=== PATIENT | male | born 1955 | race Caucasian/White ===

== ENCOUNTER 2017-05-24 15:50 | Observation (INO) ==
--- NOTE | 2017-05-24 16:04 | Emergency Department Note ---
Disposition Clinical Impression: Dysarthria Disposition: Admitted As Inpatient Condition: Good Time of Disposition: 18:06 General Adult HPI - General Chief complaint: ED Altered Mental Status Stated complaint: Stroke like symptoms Time Seen by Provider: 05/24/17 15:51 Source: patient, family Mode of arrival: wheelchair Nursing Notes Reviewed: Yes Vital Signs Reviewed: Yes - History of Present Illness HPI Narrative: 61-year-old male presenting to the emergency department chief complain of right hemiparalysis starting at 3:00 this afternoon. Patient's friend is in the room and states the symptoms started at 3 and the patient could not find the words he wanted to say and was unable to walk due to right-sided weakness. Patient has no significant cardiac or stroke history. Patient is on aspirin daily but no other anticoagulation. Patient states he has no significant past medical history. On exam patient has difficulty finding words to respond to questions. His NIH score is 3 at this time. Patient is tachycardic in the room. Patient states he felt fine this morning, denies chest pain, SOB, or other symptoms are this time. Pain Scale: 0 - Related Data Home Medications Medication Instructions Recorded Confirmed Amlodipine Besylate 10 mg PO DAILY 05/24/17 05/24/17 Aspirin 81 mg PO DAILY 05/24/17 05/24/17 Lisinopril [Zestril] 40 mg PO DAILY 05/24/17 05/24/17 Lovastatin 10 mg PO DAILY 05/24/17 05/24/17 Metoprolol [Lopressor] 50 mg PO BID 05/24/17 05/24/17 Triamterene/HCTZ 37.5/25mg 1 each PO DAILY 05/24/17 05/24/17 [Dyazide] Allergies Allergy/AdvReac Type Severity Reaction Status Date / Time No Known Allergies Allergy Verified 05/24/17 16:00 All systems ED: reviewed and negative except as stated. Constitutional: Reports: weakness. Denies: fever, chills Eyes: Reports: as per HPI ENT ED: Reports: as per HPI Cardiovascular: Denies: chest pain, palpitations, dyspnea on exertion Respiratory: Denies: cough, dyspnea, wheezes Gastrointestinal: Reports: as per HPI Genitourinary: Reports: as per HPI Musculoskeletal: Reports: as per HPI Integumentary: Reports: as per HPI Neurological: Reports: weakness, abnormal gait Psychiatric: Reports: as per HPI Endocrine: Reports: as per HPI Hematological/Lymphatic: Reports: as per HPI Allergic/Immunologic: Reports: as per HPI Past Medical History - Past Medical History Attestation: Yes The following information was validated with the patient. Medical history: Reports: hypertension Psychiatric history: Reports: no psych history - Social History Smoking Status: Current every day smoker Alcohol use: Reports: none Drug use: Reports: none Physical Exam - General Limitations: physical limitation General appearance: alert - Head Head exam: atraumatic, normocephalic, normal inspection - Eye Eye exam: Present: normal appearance, EOMI. Absent: scleral icterus, conjunctival injection - Chest Chest inspection: Present: normal inspection, symmetric chest wall rise. Absent : tenderness - Respiratory Respiratory exam: Present: normal lung sounds bilaterally. Absent: respiratory distress, wheezes - Cardiovascular Cardiovascular exam: Present: normal rhythm, tachycardia, normal heart sounds - Abdominal Exam Abdominal exam: Present: soft, Non-Tender. Absent: distention, guarding, rebound - Extremities Exam Extremities exam: Present: other (Right upper and lower extremity weakness.) - Neurological Exam Neurological exam: Present: alert, oriented X3, other (Dysarthria noted on exam. Patient's NIH score is 3. Mild right upper extremity weakness and right lower extremity weakness. Sensation intact. Cranial nerve exam within normal limits. Patient unable to walk due to weakness. Cerebellar exam within normal limits.) - Psychiatric Psychiatric exam: Present: normal affect, normal mood - Skin Skin exam: Present: warm, intact Course Course Narrative: 61-year-old male presented to the emergency chief complaint of right hemiparalysis and dysarthria. Stroke alert was called on this patient. NIH score of 3 at this time. EKG completed was within normal limits. Patient tachycardic in the room and hypertensive. Patient was evaluated by [facility] neurology who declined to begin TPA. We will plan to admit the patient at this time. Patient states right arm hemiparalysis history to pain. When patient's arm is abductor past 90 degrees he is able to hold it up for greater than 10 seconds. Right lower extremity hemiparalysis is now resolved. Patient still having dysarthria at this time. Spoke with the hospitalist Dr. Simpson who agrees to accept the patient at this time. 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 I spoke with radiology Dr. Pearson who states we will need to obtain MRI of the brain with and without contrast. Dr. Ricketts who would also like us to obtain an MRA of the brain and neck without contrast for further stroke workup. We will order these in the emergency department and defer the results to the hospitalist team. Patient's alert and oriented 3 in the room. He is having minimal dysarthria at this time and his vital signs are now stable. Vital Signs Temperature 98.4 F 05/24/17 15:54 Pulse Rate 117 05/24/17 15:54 Respiratory Rate 16 05/24/17 15:54 Blood Pressure 181/90 05/24/17 15:54 O2 Sat by Pulse Oximetry 93 05/24/17 15:54 Temperature 98.4 F 05/24/17 15:54 Pulse Rate 109 05/24/17 19:30 Respiratory Rate 22 05/24/17 19:30 Blood Pressure 132/81 05/24/17 19:30 O2 Sat by Pulse Oximetry 93 05/24/17 19:30 Oxygen Delivery Oxygen Delivery Nasal Cannula Medical Decision Making - Medical Records Medical records reviewed: Yes I reviewed the patient's medical records. - Lab Data Lab results reviewed: Yes I reviewed the patient's lab results. Result diagrams: 05/24/17 15:59 05/24/17 15:59 Lab Results 05/24/17 05/24/17 05/24/17 Range/Units 15:55 15:59 15:59 WBC 9.8 (4.3-11.1) K/mcL RBC 5.22 (4.19-5.50) M/mcL Hgb 16.5 (12.9-16.9) g/dL Hct 46.5 (37.5-50.1) % MCV 89.1 (83.0-100.0) fL MCH 31.6 (28.0-33.3) pg MCHC 35.5 (31.6-35.5) g/dL RDW 13.4 (11.5-14.5) % Plt Count 455 H (140-400) K/mcL MPV 8.5 L (9.4-12.4) fL Immature Gran % 0.5 (0-4) % Seg Neutrophils % 56.8 % Lymphocytes % 28.5 % Monocytes % 9.8 % Eosinophils % 3.0 % Basophils % 1.4 % Neutrophils # 5.6 (1.6-8.9) K/mcL Lymphocytes # 2.8 (0.6-4.6) K/mcL Monocytes # 1.0 (0.0-1.3) K/mcL Eosinophils # 0.3 (0.0-0.6) K/mcL Basophils # 0.1 (0.0-0.2) K/mcL Immature Plt Fraction 2.1 (1.1-6.1) % PT 9.4 (9.4-12.1) Seconds INR 0.9 APTT 32.0 (26.0-36.0) Seconds Sodium (136-145) mEq/L Potassium (3.5-4.5) mEq/L Chloride (98-109) mEq/L Carbon Dioxide (19-29) mEq/L BUN (8-26) mg/dL Creatinine (0.72-1.25) mg/dL Est GFR ( Amer) (> 60) Est GFR (Non-Af Amer) (> 60) BUN/Creatinine Ratio (6-26) Glucose (70-99) mg/dL POC Glucose 150 H (58-89) Calculated Osmolality (280-300) Calcium (8.6-10.8) mg/dL Troponin I (0-0.03) ng/mL 05/24/17 05/24/17 Range/Units 15:59 15:59 WBC (4.3-11.1) K/mcL RBC (4.19-5.50) M/mcL Hgb (12.9-16.9) g/dL Hct (37.5-50.1) % MCV (83.0-100.0) fL MCH (28.0-33.3) pg MCHC (31.6-35.5) g/dL RDW (11.5-14.5) % Plt Count (140-400) K/mcL MPV (9.4-12.4) fL Immature Gran % (0-4) % Seg Neutrophils % % Lymphocytes % % Monocytes % % Eosinophils % % Basophils % % Neutrophils # (1.6-8.9) K/mcL Lymphocytes # (0.6-4.6) K/mcL Monocytes # (0.0-1.3) K/mcL Eosinophils # (0.0-0.6) K/mcL Basophils # (0.0-0.2) K/mcL Immature Plt Fraction (1.1-6.1) % PT (9.4-12.1) Seconds INR APTT (26.0-36.0) Seconds Sodium 132 L (136-145) mEq/L Potassium 3.7 (3.5-4.5) mEq/L Chloride 97 L (98-109) mEq/L Carbon Dioxide 22 (19-29) mEq/L BUN 14 (8-26) mg/dL Creatinine 1.00 (0.72-1.25) mg/dL Est GFR ( Amer) > 60 (> 60) Est GFR (Non-Af Amer) > 60 (> 60) BUN/Creatinine Ratio 14 (6-26) Glucose 148 H (70-99) mg/dL POC Glucose (58-89) Calculated Osmolality 277 L (280-300) Calcium 10.1 (8.6-10.8) mg/dL Troponin I 0.00 (0-0.03) ng/mL - Radiology Data Radiology results reviewed: Yes I reviewed the patient's radiology results. - EKG Data EKG #1 EKG attestation: Yes I reviewed and interpreted this EKG. EKG results narrative: Sinus tachycardia. 114 bpm. Normal axis. TX interval 141, QRS 94, QTC 379. No ST segment elevation or signs of ischemia noted. Attestation Statement - Attestation Attestation: I, Ayan Troncoso, examined this patient and my medical decision-making was reviewed with the [employer]/PA/Advanced Practice Nurse/Resident Physician. I agree with the documented findings, disposition and treatment plan as described except to the extent set forth below. 61-year-old male presents emergency department for acute onset of difficulty with his speech and weakness in his right upper and right lower extremity. Patient states symptoms started acutely at 3 PM. No history of CVA in the past per the patient. Patient states he fell to the ground immediately prior to arrival due to difficulty with ambulation. On my initial evaluation the patient has dysarthria and aphasia and weakness to the right upper and right lower extremity. No sensation loss. No facial weakness. Stroke alert was initiated immediately after our initial evaluation. Patient had blood sugar of 150. CT of the head did not show evidence of acute hemorrhage or fracture. 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 I spoke with the radiologist, Dr. Hinkle, who states she spoke with 2 separate neuro radiologist, one recommended continued workup with MRI, the other recommended neurosurgical evaluation if patient was symptomatic. Patient was quickly returning back to baseline by the time he spoke with [facility] and the neurologist recommended not giving TPA due to low NIH and also recommended that patient did not need neurosurgical evaluation for the colloid cyst as it was not likely the cause of his symptoms. Patient will be admitted to the hospital for further care and evaluation of his acute neurologic deficits.
[2017-05-24 16:11] LABS: Basophils # 0.1 K/mcL (0.0-0.2); Basophils % 1.4 %; Eosinophils # 0.3 K/mcL (0.0-0.6); Hematocrit 46.5 % (37.5-50.1); Hemoglobin 16.5 g/dL (12.9-16.9); Immature Granulocytes % 0.5 % (0-4); Immature Platelets 2.1 % (1.1-6.1); Lymphocytes # 2.8 K/mcL (0.6-4.6); Lymphocytes % 28.5 %; Mean Corpuscular HGB Conc 35.5 g/dL (31.6-35.5); Mean Corpuscular Hemoglobin 31.6 pg (28.0-33.3); Mean Corpuscular Volume 89.1 fL (83.0-100.0); Mean Platelet Volume 8.5 fL (9.4-12.4); Monocytes % 9.8 %; Neutrophils # 5.6 K/mcL (1.6-8.9); Platelet Count 455 K/mcL (140-400); Red Blood Count 5.22 M/mcL (4.19-5.50); Red Cell Distribution Width 13.4 % (11.5-14.5); Segmented Neutrophils % 56.8 %
[2017-05-24] MEDS ORDERED: ALTEPLASE IVPB ONE ×3 (16:18→16:30)
[2017-05-24 16:22] LABS: BUN/Creatinine Ratio 14 (6-26); Blood Urea Nitrogen 14 mg/dL (8-26); Calcium 10.1 mg/dL (8.6-10.8); Carbon Dioxide 22 mEq/L (19-29); Chloride 97 mEq/L (98-109); Glucose 148 mg/dL (70-99); INR 0.9; Osmolality,Calculated 277 (280-300); Potassium 3.7 mEq/L (3.5-4.5); Prothrombin Time 9.4 Seconds (9.4-12.1); Sodium 132 mEq/L (136-145); eGFR For African Americans > 60 (> 60); eGFR For Non-African Americans > 60 (> 60)
[2017-05-24] MEDS ORDERED: Aspirin 81 MG TAB.CHEW PO ONE (17:16)
[2017-05-24] MEDS ORDERED: 0.9 % Sodium Chloride 1,000 ML IVC SCH (20:30)
--- NOTE | 2017-05-25 04:34 | Discharge Summary ---
Date of Encounter: 05/25/17 Time of Encounter: 04:30 - Discharge Medications Home Medications: Amlodipine Besylate 10 mg PO DAILY 05/24/17 [History] Aspirin 81 mg PO DAILY 05/24/17 [History] Lisinopril [Zestril] 40 mg PO DAILY 05/24/17 [History] Lovastatin 10 mg PO DAILY 05/24/17 [History] Metoprolol [Lopressor] 50 mg PO BID 05/24/17 [History] Triamterene/HCTZ 37.5/25mg [Dyazide] 1 each PO DAILY 05/24/17 [History] Allergies/Adverse Reactions: 3 Allergy/AdvReac Type Severity Reaction Status Date / Time No Known Allergies Allergy Verified 05/24/17 16:00 Procedures/tests Complete & Pending: Procedures Performed prior 72 hours Category Date Time Status MR angio neck wo/w con [MR] Stat MRI 05/24/17 17:51 Completed Date of admission: 05/24/17 17:51 Primary care physician: Lili Gatica MD - Patient Status Disposition: Transfer Critical Access Hosp Condition: Serious Overall status at discharge: patient is not back to baseline - Discharge Instructions Follow Up With: Lili Gatica MD [Primary Care Provider] - Interval History: Patient is a 61-year-old male who had presented to the emergency room with onsets of right-sided weakness at 3 PM. Patient symptoms started improving in the emergency room and therefore he was evaluated by [facility] neurologist who decided against giving him algae plays because you were showing already signs of improvement. We were contacted by the nurses later approximately 7:30 PM that there has been a change in the patient neurological status. Patient exhibited aphasia after he was able to talk earlier, patient also had worsening weakness in the right upper extremity which is now 2 over 5. Discuss case again with [facility] neurologist recommended transferring the patient. 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 Patient has been maintaining his airway. Hospital course: Mr. Hicks is a 61 year old male - Time Spent with Patient Total time spent providing and/or coordinating discharge services: - Constitutional Vitals: Temp Pulse Resp BP Pulse Ox 97.6 F 114 20 123/89 98 05/24/17 19:50 05/24/17 22:42 05/24/17 22:42 05/24/17 22:42 05/24/17 22:42 Exam: Gen.: patient is alert oriented times 3 not in distress cardiac: Normal S1, S2, no additional sounds or murmurs chest: Clear to auscultation lower extremity Lax calf muscles no swelling Neuro: right arm weakness to over 5, right lower extremity weakness 3 over 5, aphasia
--- NOTE | 2017-05-25 04:42 | Internal Med History&Physical ---
Date of Encounter: 05/25/17 Time of Encounter: 04:38 Assessment and Plan (1) Acute CVA (cerebrovascular accident) Status: Acute Patient with acute left CVA causing right-sided weakness and aphasia. Patient symptoms fluctuating probably related to changes in blood pressure. Rapid response was called shortly after arrival to floor because of declining neurological status in the form of aphasia after patient was able to talk in addition to worsening paralysis of right upper extremity where he currently does not have any antigravity muscle. MRI of the brain shows left frontal infarct and MRA of the head and neck shows carotid occlusion bilaterally with collateral circulation. Case discussed with neurologist at the [facility] will recommended transferring the patient. Patient is not a candidate for CPA. On initial evaluation by neurologist because of improving neurological status and on the 2nd evaluation being out of window. Internal Medicine - H&P: HPI Chief complaint: right side weakness History of present illness: Mr. Hicks is a 61 year old male with a history of hypertension presents to the ER with the main complain of right-sided weakness. Approximately 3 PM patient Notices weakness of the right side of the body. It was also noted that he is having difficulty finding words. He had presented to the emergency room and Approximately an hour and a half later TPA was not recommended given improvement of his neurological status. Patient neurological status declined after arriving to the floor where he became aphasic and lost antigravity muscles in the right upper extremity. patient denies any chest pain. No sputum production fevers or chills. Past Med Surg Social Fam HX - Past Medical History Medical history: hypertension Psychiatric history: no psych history - Social History Smoking Status: Current every day smoker Alcohol use: none Drug use: none Internal Medicine - H&P: Meds Amlodipine Besylate 10 mg PO DAILY 05/24/17 [History] Aspirin 81 mg PO DAILY 05/24/17 [History] Lisinopril [Zestril] 40 mg PO DAILY 05/24/17 [History] Lovastatin 10 mg PO DAILY 05/24/17 [History] Metoprolol [Lopressor] 50 mg PO BID 05/24/17 [History] Triamterene/HCTZ 37.5/25mg [Dyazide] 1 each PO DAILY 05/24/17 [History] 3 Allergy/AdvReac Type Severity Reaction Status Date / Time No Known Allergies Allergy Verified 05/24/17 16:00 All Systems PM: A 10-system review of systems was performed and is negative for pertinent findings except as documented above in the HPI. Review of systems: 10 point review of systems is negative except for HPI - Constitutional Vitals: Temp Pulse Resp BP Pulse Ox 97.6 F 114 20 123/89 98 05/24/17 19:50 05/24/17 22:42 05/24/17 22:42 05/24/17 22:42 05/24/17 22:42 Exam: Gen.: patient is alert oriented times 3 not in distress cardiac: Normal S1, S2, no additional sounds or murmurs chest: Clear to auscultation lower extremity Lax calf muscles no swelling Neuro: right upper extremity weakness more power 1 over 5, right lower extremity weakness more power 3 over 5, aphasia Internal Med - H&P Results - Labs CBC & Chem 7: 05/24/17 15:59 05/24/17 15:59
--- NOTE | 2017-05-26 18:21 | Electrocardiograph Report ---
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
== END 2017-05-24 21:15 | disposition critical access hospital (66) ==
LOC: 3BNU 15:50 → EMEROO 15:50 → 3BNU 18:11
PROVIDERS: ADMIT Registered Nurse; ATTEND Registered Nurse

== ENCOUNTER 2017-10-07 20:37 | Inpatient (IN) ==
[2017-10-07] MEDS ORDERED: 0.9 % Sodium Chloride 1,000 ML IVC ONE (21:03)
--- NOTE | 2017-10-07 21:11 | Emergency Department Note ---
Disposition Clinical Impression: HCAP (healthcare-associated pneumonia), UTI (urinary tract infection), Fever Disposition: Admitted As Inpatient Condition: Good General Adult HPI - General Chief complaint: ED General Medical Stated complaint: Elevated Vitals Time Seen by Provider: 10/07/17 20:41 Source: EMS Limitations: no limitations Nursing Notes Reviewed: Yes Vital Signs Reviewed: Yes - History of Present Illness HPI Narrative: 61 y/o male with a hx of stroke affecting his speech and R side of his body. Lives at a fdc due to this. I spoke with the nurse at the fdc who reports that he was tachycardic, febrile, with low SPO2, and cough. He also has been pointing to his abdomen when asked if it hurts. The nurse says he does not use O2 at the fdc. PMH of stroke, HTN, HLD. He is nonverbal but does nod in response to questions. 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 Pain Scale: 0 Improves with: nothing Worsens with: nothing Associated symptoms: Reports: denies other symptoms Treatments Prior to Arrival: none - Related Data Home Medications Medication Instructions Recorded Confirmed Amlodipine Besylate 10 mg PO DAILY 05/24/17 05/24/17 Aspirin 81 mg PO DAILY 05/24/17 05/24/17 Lisinopril [Zestril] 40 mg PO DAILY 05/24/17 05/24/17 Lovastatin 10 mg PO DAILY 05/24/17 05/24/17 Metoprolol [Lopressor] 50 mg PO BID 05/24/17 05/24/17 Triamterene/HCTZ 37.5/25mg 1 each PO DAILY 05/24/17 05/24/17 [Dyazide] Allergies Allergy/AdvReac Type Severity Reaction Status Date / Time No Known Allergies Allergy Verified 05/24/17 16:00 All systems ED: reviewed and negative except as stated. Constitutional: Reports: fever Cardiovascular: Denies: chest pain Respiratory: Reports: cough Gastrointestinal: Reports: abdominal pain. Denies: nausea, vomiting, diarrhea Integumentary: Denies: rash Past Medical History - Past Medical History Medical history: Reports: CVA, hypertension Psychiatric history: Reports: no psych history - Social History Smoking Status: Current every day smoker Alcohol use: Reports: none Drug use: Reports: none Physical Exam - General Limitations: no limitations General appearance: alert, in no apparent distress - Head Head exam: atraumatic - Eye Eye exam: Present: normal appearance, PERRL - ENT ENT exam: normal exam - Neck Neck exam: Present: normal inspection - Chest Chest inspection: Present: normal inspection, symmetric chest wall rise - Respiratory Respiratory exam: Present: other (coarse lung sounds on the right.). Absent: respiratory distress - Cardiovascular Cardiovascular exam: Present: regular rate, normal rhythm - Abdominal Exam Abdominal exam: Present: soft, Non-Tender - Extremities Exam Extremities exam: Present: other (right UE edema and right LE edema.) - Neurological Exam Neurological exam: Present: alert - Skin Skin exam: Present: warm, dry Course Course Narrative: He has a new O2 requirement with pneumonia on CT of the abdomen, but clear CXR. Will treat for HCAP. In addition has a UTI. Initially was febrile, but vitals are all improving with abx and IVF. Vital Signs Temperature 100.8 F H 10/07/17 20:40 Pulse Rate 118 10/07/17 20:40 Respiratory Rate 20 10/07/17 20:40 Blood Pressure 139/93 10/07/17 20:40 O2 Sat by Pulse Oximetry 92 10/07/17 20:40 Temperature 99.8 F H 10/07/17 22:38 Pulse Rate 99 10/08/17 00:25 Respiratory Rate 18 10/08/17 00:25 Blood Pressure 114/66 10/08/17 00:25 O2 Sat by Pulse Oximetry 91 10/08/17 00:25 Oxygen Delivery Oxygen Delivery Nasal Cannula Medical Decision Making - Medical Records Medical records reviewed: Yes I reviewed the patient's medical records. - Lab Data Lab results reviewed: Yes I reviewed the patient's lab results. Result diagrams: 10/07/17 21:17 10/07/17 21:17 Lab Results 10/07/17 10/07/17 10/07/17 Range/Units 20:59 21:17 21:17 WBC 14.5 H (4.3-11.1) K/mcL RBC 4.73 (4.19-5.50) M/mcL Hgb 14.5 (12.9-16.9) g/dL Hct 42.3 (37.5-50.1) % MCV 89.4 (83.0-100.0) fL MCH 30.7 (28.0-33.3) pg MCHC 34.3 (31.6-35.5) g/dL RDW 15.0 H (11.5-14.5) % Plt Count 311 (140-400) K/mcL MPV 9.0 L (9.4-12.4) fL Immature Gran % 0.3 (0-4) % Seg Neutrophils % 78.0 % Lymphocytes % 9.8 % Monocytes % 10.1 % Eosinophils % 1.2 % Basophils % 0.6 % Neutrophils # 11.3 H (1.6-8.9) K/mcL Lymphocytes # 1.4 (0.6-4.6) K/mcL Monocytes # 1.5 H (0.0-1.3) K/mcL Eosinophils # 0.2 (0.0-0.6) K/mcL Basophils # 0.1 (0.0-0.2) K/mcL PT 11.3 (9.4-12.1) Seconds INR 1.1 Sodium (136-145) mEq/L Potassium (3.5-5.1) mEq/L Chloride (98-107) mEq/L Carbon Dioxide (23-29) mEq/L BUN (8-23) mg/dL Creatinine (0.70-1.30) mg/dL Est GFR ( Amer) (> 60) Est GFR (Non-Af Amer) (> 60) BUN/Creatinine Ratio (6-26) Glucose (70-105) mg/dL Calculated Osmolality (280-300) Calcium (8.6-10.3) mg/dL Total Bilirubin (0.3-1.0) mg/dL Direct Bilirubin (0.0-0.2) mg/dL Indirect Bilirubin (0.0-1.2) mg/dL AST (13-39) Units/L ALT (7-52) Units/L Alkaline Phosphatase (34-104) Units/L Serum Total Protein (6.4-8.9) g/dL Albumin (3.5-5.7) g/dL Globulin (2.4-3.5) g/dL Albumin/Globulin Ratio (1.1-2.2) Lipase (11-82) Units/L Urine Color Yellow (Yellow) Urine Clarity Turbid A (Clear) Urine pH 7.5 (5.0-8.0) pH Units Ur Specific Dawson 1.019 (1.010-1.025) Urine Protein Trace (Neg-Trace) mg/dL Urine Glucose (UA) Normal (Normal) mg/dL Urine Ketones Negative (Negative) mg/dL Urine Blood Small H (Negative) Urine Nitrite Positive A (Negative) Urine Bilirubin Negative (Negative) Urine Urobilinogen Normal (Normal) mg/dL Ur Leukocyte Esterase Large H (Negative) Urine Microscopic RBC 5-15 H (0-3) per hpf Urine Microscopic WBC TNTC H (0-3) per hpf Ur Squamous Epith Cells None Seen (None-Few) per lpf Urine Bacteria Many H (None-Few) per hpf Hyaline Casts None Seen (None-Few) per lpf Ur Culture Indicated? YES A (NO) 10/07/17 10/07/17 Range/Units 21:17 21:17 WBC (4.3-11.1) K/mcL RBC (4.19-5.50) M/mcL Hgb (12.9-16.9) g/dL Hct (37.5-50.1) % MCV (83.0-100.0) fL MCH (28.0-33.3) pg MCHC (31.6-35.5) g/dL RDW (11.5-14.5) % Plt Count (140-400) K/mcL MPV (9.4-12.4) fL Immature Gran % (0-4) % Seg Neutrophils % % Lymphocytes % % Monocytes % % Eosinophils % % Basophils % % Neutrophils # (1.6-8.9) K/mcL Lymphocytes # (0.6-4.6) K/mcL Monocytes # (0.0-1.3) K/mcL Eosinophils # (0.0-0.6) K/mcL Basophils # (0.0-0.2) K/mcL PT (9.4-12.1) Seconds INR Sodium 135 L (136-145) mEq/L Potassium 3.7 (3.5-5.1) mEq/L Chloride 101 (98-107) mEq/L Carbon Dioxide 23 (23-29) mEq/L BUN 11 (8-23) mg/dL Creatinine 0.68 L (0.70-1.30) mg/dL Est GFR ( Amer) > 60 (> 60) Est GFR (Non-Af Amer) > 60 (> 60) BUN/Creatinine Ratio 16 (6-26) Glucose 120 H (70-105) mg/dL Calculated Osmolality 281 (280-300) Calcium 9.7 (8.6-10.3) mg/dL Total Bilirubin 0.5 (0.3-1.0) mg/dL Direct Bilirubin 0.1 (0.0-0.2) mg/dL Indirect Bilirubin 0.4 (0.0-1.2) mg/dL AST 21 (13-39) Units/L ALT 38 (7-52) Units/L Alkaline Phosphatase 130 H (34-104) Units/L Serum Total Protein 7.0 (6.4-8.9) g/dL Albumin 4.0 (3.5-5.7) g/dL Globulin 3.0 (2.4-3.5) g/dL Albumin/Globulin Ratio 1.3 (1.1-2.2) Lipase 34 (11-82) Units/L Urine Color (Yellow) Urine Clarity (Clear) Urine pH (5.0-8.0) pH Units Ur Specific Dawson (1.010-1.025) Urine Protein (Neg-Trace) mg/dL Urine Glucose (UA) (Normal) mg/dL Urine Ketones (Negative) mg/dL Urine Blood (Negative) Urine Nitrite (Negative) Urine Bilirubin (Negative) Urine Urobilinogen (Normal) mg/dL Ur Leukocyte Esterase (Negative) Urine Microscopic RBC (0-3) per hpf Urine Microscopic WBC (0-3) per hpf Ur Squamous Epith Cells (None-Few) per lpf Urine Bacteria (None-Few) per hpf Hyaline Casts (None-Few) per lpf Ur Culture Indicated? (NO) - Radiology Data Radiology results reviewed: Yes I reviewed the patient's radiology results. - EKG Data EKG #1 EKG attestation: Yes I reviewed and interpreted this EKG. EKG results narrative: EKG shows sinus rhythm with no acute tendon ST segment elevation abnormality. Intervals are normal. Hood is normal. No acute signs of WPW. Attestation Statement - Attestation Attestation: I, Ty Vasquez DO, examined this patient [id number] and my medical decision-making was reviewed with Dr. Babak Bui, Resident Physician. I agree with the documented findings, disposition and treatment plan as described except to the extent set forth below. Please see my progress notes for details. 60-year-old male presents from a fdc for evaluation of fever, abnormal vital signs. Patient is chronically disabled secondary to her stroke. He has no use of the right side of his body. He also has inability to speak except for saying yes and no. Patient does use a communication board. On physical exam patient is denying any other symptoms except for some generalized malaise and abdominal discomfort. He denies any cough, congestion fevers chills nausea vomiting or diarrhea prior to these events. He has had a cough and fevers over the last several days. At this time, he is denying chest pain shortness of breath headache or vision changes. Denies any trauma or injury. Patient was sent here for the abnormal vital signs. Initial vital signs here. We stable except for fever. Patient will be evaluated for Potential infectious etiology. Chest x-ray CT of the abdomen screening labs CBC chemistry troponin EKG along with urinalysis and blood cultures will be ordered. Antibiotic regimen will be started once an infectious etiology is isolated. Patient family informed. IV fluids and hydration will be started this time along with antipyretic medication. Patient is otherwise clinically stable. Physical exam is unremarkable except for coarse breath sounds right side. Abdomen is soft he does have some tenderness diffusely but is difficult to point for pinpoint A location. Patient has no use of the right side of his body. Left-sided does not show any acute signs of trauma injuring or abnormality. Disposition pending further workup and treatment course. Patient will most likely need admission dependent upon the findings during the evaluation. See detailed documentation of the physical exam, medical intervention, medical decision- making and disposition and the resident physician's note. No critical care about this patient's treatment course. [id number] Patient found to have a urinary tract infection as well as pneumonia. Healthcare acquired pneumonia prophylaxis will be started this time with antibiotics including vancomycin and Zosyn. Patient will be admitted secondary to his oxygen requirement as well as his fever. Patient is clinically stable. Admission process will be completed at this time.
[2017-10-07 21:12] LABS: Bilirubin,Urine Negative (Negative); Blood,Urine Small (Negative); Clarity,Urine Turbid (Clear); Color,Urine Yellow (Yellow); Glucose,Urine (UA) Normal (Normal); Ketones,Urine Negative (Negative); Leukocyte Esterase,Urine Large (Negative); Nitrite,Urine Positive (Negative); PH,Urine 7.5 pH Units (5.0-8.0); Protein,Urine Trace mg/dL (Neg-Trace); Specific Gravity,Urine 1.019 (1.010-1.025); Urobilinogen,Urine Normal (Normal)
[2017-10-07 21:16] LABS: Bacteria,Urine Many per hpf (None-Few); Hyaline Casts,Urine None Seen per lpf (None-Few); Squamous Epithelial Cell,Urine None Seen per lpf (None-Few); WBC,Urine TNTC per hpf (0-3)
[2017-10-07 21:29] LABS: Basophils # 0.1 K/mcL (0.0-0.2); Basophils % 0.6 %; Eosinophils # 0.2 K/mcL (0.0-0.6); Eosinophils % 1.2 %; Hematocrit 42.3 % (37.5-50.1); Hemoglobin 14.5 g/dL (12.9-16.9); Immature Granulocytes % 0.3 % (0-4); Lymphocytes # 1.4 K/mcL (0.6-4.6); Lymphocytes % 9.8 %; Mean Corpuscular HGB Conc 34.3 g/dL (31.6-35.5); Mean Corpuscular Hemoglobin 30.7 pg (28.0-33.3); Mean Corpuscular Volume 89.4 fL (83.0-100.0); Monocytes # 1.5 K/mcL (0.0-1.3); Monocytes % 10.1 %; Neutrophils # 11.3 K/mcL (1.6-8.9); Platelet Count 311 K/mcL (140-400); Red Blood Count 4.73 M/mcL (4.19-5.50)
[2017-10-07 21:33] LABS: INR 1.1; Prothrombin Time 11.3 Seconds (9.4-12.1)
[2017-10-07 21:45] LABS: Alanine Aminotransferase 38 Units/L (7-52); Albumin/Globulin Ratio 1.3 (1.1-2.2); Alkaline Phosphatase 130 Units/L (34-104); Aspartate Amino Transferase 21 Units/L (13-39); BUN/Creatinine Ratio 16 (6-26); Bilirubin,Direct 0.1 mg/dL (0.0-0.2); Bilirubin,Indirect 0.4 mg/dL (0.0-1.2); Bilirubin,Total 0.5 mg/dL (0.3-1.0); Blood Urea Nitrogen 11 mg/dL (8-23); Calcium 9.7 mg/dL (8.6-10.3); Carbon Dioxide 23 mEq/L (23-29); Chloride 101 mEq/L (98-107); Glucose 120 mg/dL (70-105); Osmolality,Calculated 281 (280-300); Potassium 3.7 mEq/L (3.5-5.1); Sodium 135 mEq/L (136-145); eGFR For African Americans > 60 (> 60); eGFR For Non-African Americans > 60 (> 60)
[2017-10-07] MEDS ORDERED: Piperacillin/Tazobactam 3.375 GM in 0.9 % Sodium Chloride Mini Bag 100 ML IVPB ONE (22:46)
[2017-10-08] MEDS ORDERED: Naloxone 0.4 MG/ML INJ IVP PRN (01:35)
[2017-10-08] MEDS ORDERED: Acetaminophen 325 MG TABLET PO PRN ×2 (01:35→11:56)
[2017-10-08] MEDS ORDERED: 0.9 % Sodium Chloride 1,000 ML IVC SCH (01:45)
--- NOTE | 2017-10-08 01:50 | Internal Med History&Physical ---
Date of Encounter: 10/08/17 Time of Encounter: 01:00 Assessment and Plan (1) History of CVA (cerebrovascular accident) Current visit: Yes Status: Acute Cont antiplatelet and statin. Cont PT/OT. Pt has passed swallow evaluation per pt's sister. (2) Carotid stenosis, bilateral Current visit: Yes Status: Acute Per pt's sister, pt has been evaluated by [facility] and decide no surgery probably because pt has large infarct (3) DVT prophylaxis Current visit: Yes Status: Acute Heparin SC (4) HCAP (healthcare-associated pneumonia) Current visit: Yes Status: Acute Pt has cough, fever, imaging study shows PNA. Treat as HCAP considering pt has recent hospitalization and NH stay. - Place pt on vanco and zosyn. - Oxygen NC - Cough syrup PRN - F/U blood culture. Pt is at high risk b/o vanco use, need close monitoring. (5) UTI (urinary tract infection) Current visit: Yes Status: Acute Pt is on zosyn now. F/U urine culture. CT abd done, no hydronephrosis/ hydroureterosis identified. Qualifiers: Urinary tract infection type: acute cystitis Hematuria presence: with hematuria Qualified Code(s): N30.01 - Acute cystitis with hematuria (6) Sepsis Current visit: Yes Status: Acute Pt meets sepsis criteria with tachycardia, fever, and leukocytosis. Source of infection considering PNA and UTI. - Fluid resuscitation started from ER, continue IV fluid - On Vanco and Zosyn - Track lactate. Qualifiers: Sepsis type: sepsis due to unspecified organism Qualified Code(s): A41.9 - Sepsis, unspecified organism Internal Medicine - H&P: HPI Chief complaint: Fever Admitted From: Long-term Nursing Facility Plans for Post Hospital Care: Transfer Halfway Facility History of present illness: Mr. 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 Pt is awake, alert, oriented x3 but non-verbal b/o aphasia. Hx mainly obtained from his sister (also his guardian). Per pt's sister, she was called by [place] today and was told pt has fever to T 101F. Pt also c/o cough with clear sputum for a couple of days. Pt has dysuria as well. Pt denies chest pain , SOB, abd pain, or nausea. In ER, UA possitive for UTI. Abd CT shows bibasal pneumonia although CXR is generally negative. Per pt's sister, pt has passed swallow evaluation in [place] and eats regular diet there. Per [place] transfer documentation, CODE STATUS is DNR/DNI, I double confirmed this CODE STATUS with pt and his sister and was told to keep DNR/DNI. Past Med Surg Social Fam HX - Past Medical History Medical history: CVA, hypertension Psychiatric history: no psych history - Social History Smoking Status: Current every day smoker Alcohol use: none Drug use: none Internal Medicine - H&P: Meds Amlodipine Besylate 10 mg PO DAILY 05/24/17 [History] Aspirin 81 mg PO DAILY 05/24/17 [History] Lisinopril [Zestril] 40 mg PO DAILY 05/24/17 [History] Lovastatin 10 mg PO DAILY 05/24/17 [History] Metoprolol [Lopressor] 50 mg PO BID 05/24/17 [History] Triamterene/HCTZ 37.5/25mg [Dyazide] 1 each PO DAILY 05/24/17 [History] 3 Allergy/AdvReac Type Severity Reaction Status Date / Time No Known Allergies Allergy Verified 05/24/17 16:00 All Systems PM: A 10-system review of systems was performed and is negative for pertinent findings except as documented above in the HPI. - Constitutional Vitals: Temp Pulse Resp BP Pulse Ox 98.6 F 94 34 137/88 93 10/08/17 01:20 10/08/17 01:20 10/08/17 01:20 10/08/17 01:20 10/08/17 01:20 General appearance: Present: A&O X 3, no acute distress - Head Head exam: Present: atraumatic, normocephalic - Eye Eye exam: Present: PERRL, conjuntiva pink, sclera anicteric Pupils: Present: PERRL - Neck Neck exam general surgery: Present: supple, trachea midline. Absent: lymphadenopathy - Respiratory Respiratory exam: Present: CTAB. Absent: accessory muscle use, rales, rhonchi, wheezes - Cardiovascular Cardiovascular exam: Present: RRR, +S1, +S2. Absent: diastolic murmur, gallop, rubs, systolic murmur - GI/Abdominal GI/Abdominal exam: Present: normal bowel sounds, soft, no peritoneal signs. Absent: distended, tenderness - Extremities Exam Extremities exam: Present: warm, radial pulses palpable and symmetrical. Absent : calf tenderness, cyanotic, pedal edema - Neurological Exam Neurological exam: Present: CN II-XII intact, motor sensory deficit (Motor 0-1/ 5 right UE, 1-2/5 Right LE), oriented X3, no focal deficits, speech deficit ( Aphasia). Absent: pronater drift, facial droop - Skin Skin exam: Present: dry, intact Internal Med - H&P Results - Labs CBC & Chem 7: 10/07/17 21:17 10/07/17 21:17 - EKG Data -: EKG Interpreted by Myself EKG shows normal: sinus rhythm Rate: tachycardia
[2017-10-08 03:57] LABS: Basophils # 0.1 K/mcL (0.0-0.2); Basophils % 0.6 %; Eosinophils # 0.2 K/mcL (0.0-0.6); Eosinophils % 1.2 %; Hematocrit 38.9 % (37.5-50.1); Immature Granulocytes % 0.3 % (0-4); Lymphocytes # 1.9 K/mcL (0.6-4.6); Lymphocytes % 14.9 %; Mean Corpuscular HGB Conc 33.2 g/dL (31.6-35.5); Mean Corpuscular Hemoglobin 30.3 pg (28.0-33.3); Mean Corpuscular Volume 91.3 fL (83.0-100.0); Mean Platelet Volume 9.3 fL (9.4-12.4); Monocytes # 1.4 K/mcL (0.0-1.3); Monocytes % 11.5 %; Neutrophils # 8.9 K/mcL (1.6-8.9); Platelet Count 293 K/mcL (140-400); Red Blood Count 4.26 M/mcL (4.19-5.50); Red Cell Distribution Width 15.5 % (11.5-14.5); Segmented Neutrophils % 71.5 %
[2017-10-08 04:01] LABS: Hemoglobin 12.9 g/dL (12.9-16.9)
[2017-10-08 05:09] LABS: BUN/Creatinine Ratio 16 (6-26); Blood Urea Nitrogen 9 mg/dL (8-23); Calcium 8.7 mg/dL (8.6-10.3); Carbon Dioxide 24 mEq/L (23-29); Chloride 107 mEq/L (98-107); Glucose 109 mg/dL (70-105); Magnesium 1.8 mg/dL (1.6-2.6); Osmolality,Calculated 285 (280-300); Potassium 3.5 mEq/L (3.5-5.1); Sodium 138 mEq/L (136-145); eGFR For African Americans > 60 (> 60); eGFR For Non-African Americans > 60 (> 60)
[2017-10-08] MEDS: *HR* Heparin 5,000 UNIT/ML VIAL SQ SCH ×2 (05:49→16:59)
[2017-10-08] MEDS: Aspirin 81 MG TAB.CHEW PO SCH (08:06)
[2017-10-08] MEDS: amLODIPine 5 MG TABLET PO SCH (08:06)
[2017-10-08] MEDS: Piperacillin/Tazobactam 3.375 GM in 0.9 % Sodium Chloride Mini Bag 100 ML IVPB SCH ×3 (08:11→22:27)
[2017-10-08] MEDS ORDERED: Lisinopril 20 MG TABLET PO SCH (09:00)
--- NOTE | 2017-10-08 10:02 | Event Note ---
<Feng Rhoades - Last Filed: 10/08/17 09:59> Date of Encounter: 10/08/17 Time of Encounter: 09:59 Patient seen and examined at bedside. He has some difficulty speaking at baseline due to previous stroke but he is awake alert and able to answer yes or no questions for me. He states that he feels better today he is still coughing up some mucus. Otherwise he has no complaints. Exam: Gen.: Awake, alert, in no acute distress Heart: Regular rate and rhythm, no murmurs, rubs, gallops. Lungs: Clear to auscultation bilaterally Abdomen: Soft, nontender, nondistended. Normoactive bowel sounds. Neuro: Severely slurred speech, right-sided weakness. Chronic in nature. Assessment and plan: Healthcare associated pneumonia: Patient has evidence of pneumonia in the lower lobes on CT of the abdomen/pelvis. Patient also has clinical signs with cough and shortness of breath which have improved since admission. Patient seems to be responding to antibiotics L. Continue vancomycin/Zosyn for now. We will discontinue vancomycin once cultures are returned. We will check strep and legionella urinary antigens History of CVA: Chronic speech deficits and right-sided weakness. No acute changes. <Bc Paul - Last Filed: 10/08/17 18:36> Date of Encounter: 10/08/17 Pt admitted earlier this AM with pneumonia and UTI. He has been responding to IV abx. He is alert and comfortable Agree with assessment and plan as above.
[2017-10-08] MEDS: Budesonide/Formoterol 160/4.5 MDI IH SCH ×2 (11:31→20:52)
[2017-10-08] MEDS ORDERED: Bisacodyl 10 MG RECTAL SUPPOSITORY RC PRN (11:56)
[2017-10-08] MEDS ORDERED: NON-FORMULARY MEDICATION 1 EACH EACH (Magnesium Hydroxide 30 ML) PO PRN (11:56)
[2017-10-08] MEDS ORDERED: MOM Conc 10 ML UD.LIQ PO PRN (12:15)
--- NOTE | 2017-10-08 17:35 | Electrocardiograph Report ---
[address] [place] [address] Test Date: 2017-10-08 Pat Name: Markel Hicks Department: 102 Room: 11 Gender: M [employer] Performer: Tania : 1955 Requested By: Ty Vasquez Order Number: [id number] Reading MD: Dawna Dye Measurements Intervals [place] Rate: 97 P: 25 W[place]: 148 QRS: 55 QRSD: 89 T: 73 QT: 335 QTc: 389 Interpretive Statements SINUS RHYTHM NONSPECIFIC T-WAVE ABNORMALITY Electronically Signed On 10-08-2017 17:34:09 EST by Dawna Dye
[2017-10-09] MEDS: *HR* Heparin 5,000 UNIT/ML VIAL SQ SCH ×2 (05:37→17:10)
[2017-10-09] MEDS: Budesonide/Formoterol 160/4.5 MDI IH SCH ×2 (07:29→22:21)
[2017-10-09 07:35] LABS: BUN/Creatinine Ratio 16 (6-26); Blood Urea Nitrogen 9 mg/dL (8-23); Calcium 9.6 mg/dL (8.6-10.3); Carbon Dioxide 24 mEq/L (23-29); Chloride 102 mEq/L (98-107); Glucose 101 mg/dL (70-105); Magnesium 1.9 mg/dL (1.6-2.6); Osmolality,Calculated 281 (280-300); Potassium 3.6 mEq/L (3.5-5.1); Sodium 136 mEq/L (136-145); eGFR For African Americans > 60 (> 60); eGFR For Non-African Americans > 60 (> 60)
[2017-10-09 08:28] LABS: Basophils # 0.1 K/mcL (0.0-0.2); Basophils % 0.8 %; Eosinophils # 0.3 K/mcL (0.0-0.6); Eosinophils % 3.3 %; Hematocrit 41.6 % (37.5-50.1); Hemoglobin 13.9 g/dL (12.9-16.9); Immature Granulocytes % 0.3 % (0-4); Lymphocytes # 1.5 K/mcL (0.6-4.6); Lymphocytes % 14.9 %; Mean Corpuscular HGB Conc 33.4 g/dL (31.6-35.5); Mean Corpuscular Hemoglobin 30.5 pg (28.0-33.3); Mean Corpuscular Volume 91.2 fL (83.0-100.0); Mean Platelet Volume 9.6 fL (9.4-12.4); Monocytes % 9.7 %; Neutrophils # 7.1 K/mcL (1.6-8.9); Platelet Count 301 K/mcL (140-400); Red Blood Count 4.56 M/mcL (4.19-5.50); Red Cell Distribution Width 15.4 % (11.5-14.5)
[2017-10-09] MEDS: Piperacillin/Tazobactam 3.375 GM in 0.9 % Sodium Chloride Mini Bag 100 ML IVPB SCH ×2 (09:35→17:09)
[2017-10-09] MEDS: amLODIPine 5 MG TABLET PO SCH (09:36)
[2017-10-09] MEDS: Aspirin 81 MG TAB.CHEW PO SCH (09:37)
[2017-10-09] MEDS: hydroCHLOROthiazide 25 MG TABLET PO SCH (09:37)
[2017-10-09] MEDS: Multivit/Ca/Min/Fe/FA 1 TAB TABLET PO SCH (09:37)
[2017-10-09] MEDS: Lisinopril 20 MG TABLET PO SCH (09:38)
[2017-10-09] MEDS: Sennosides 8.6 MG TABLET PO SCH ×2 (09:38→09:46)
[2017-10-09] MEDS ORDERED: Aminoglycoside Consult 1 EACH MC ONE (09:49)
--- NOTE | 2017-10-09 10:41 | Internal Med Progress Note ---
<IyvFeng liu - Last Filed: 10/09/17 10:37> Date of Encounter: 10/09/17 Time of Encounter: 10:37 - Assessment and plan (1) HCAP (healthcare-associated pneumonia) Current Visit: Yes Status: Acute Assessment and plan: Patient had clinical signs and symptoms of pneumonia on presentation with evidence of bibasilar pneumonia on CT scan. Patient appears to be clinically improving. Blood cultures are preliminarily negative so we will discontinue vancomycin and continue Zosyn with possible switch to oral antibiotics tomorrow. (2) UTI (urinary tract infection) Current Visit: Yes Status: Acute Assessment and plan: Patient has gram-negative rods growing in the urine. Vancomycin has been discontinued, continue Zosyn until final culture and sensitivity results of been obtained. Qualifiers: Urinary tract infection type: acute cystitis Hematuria presence: with hematuria Qualified Code(s): N30.01 - Acute cystitis with hematuria (3) Hypertension Current Visit: Yes Status: Acute Assessment and plan: Pressure under good control. Continue medication. Qualifiers: Hypertension type: essential hypertension Qualified Code(s): I10 - Essential (primary) hypertension (4) History of CVA (cerebrovascular accident) Current Visit: Yes Status: Acute Assessment and plan: Chronic right-sided and speech deficits. No acute changes. - Subjective Interval history: Patient seen and examined at bedside. He states that he feels pretty good today. He feels like he is breathing well. He does state that he has a mild cough that is nonproductive. He denies any chest pain, shortness of breath, dysuria. - Constitutional Vitals: Temp Pulse Resp BP Pulse Ox 98.2 F 80 18 129/79 92 10/09/17 07:18 10/09/17 07:18 10/09/17 07:29 10/09/17 07:18 10/09/17 07:29 General appearance: Present: A&O X 3, no acute distress - Respiratory Respiratory exam: Present: CTAB. Absent: rales, rhonchi, wheezes - Cardiovascular Cardiovascular exam: Present: RRR. Absent: gallop, rubs, systolic murmur - GI/Abdominal GI/Abdominal exam: Present: normal bowel sounds, soft. Absent: distended, tenderness - Neurological Exam Neurological exam: Present: alert, oriented X3, speech deficit (Chronic) Additional comments: Chronic right-sided deficits, no acute changes. Internal Medicine: Result - Labs CBC & Chem 7: 10/09/17 06:42 10/09/17 06:42 Labs: Short CBC 10/09/17 Range/Units 06:42 WBC 10.1 (4.3-11.1) K/mcL Hgb 13.9 (12.9-16.9) g/dL Hct 41.6 (37.5-50.1) % Plt Count 301 (140-400) K/mcL Neutrophils # 7.1 (1.6-8.9) K/mcL BMP 10/09/17 06:42 Sodium 136 Potassium 3.6 Chloride 102 Carbon Dioxide 24 BUN 9 Creatinine 0.57 L Glucose 101 Calcium 9.6 - ABG Interpretation ABG results: PT/INR, D-dimer PT 11.3 Seconds (9.4-12.1) 10/07/17 21:17 Consult Discharge Plan - Plan Referrals: Tio Lincoln [Primary Care Provider] - <Bc Paul - Last Filed: 10/09/17 18:27> Date of Encounter: 10/09/17 - Assessment and plan (1) UTI (urinary tract infection) Current Visit: Yes Status: Acute Qualifiers: Urinary tract infection type: acute cystitis Hematuria presence: with hematuria Qualified Code(s): N30.01 - Acute cystitis with hematuria (2) Sepsis Current Visit: Yes Status: Resolved Qualifiers: Sepsis type: sepsis due to unspecified organism Qualified Code(s): A41.9 - Sepsis, unspecified organism (3) Pneumonia Current Visit: Yes Status: Suspected Qualifiers: Pneumonia type: due to other aerobic Gram-negative bacteria Laterality: bilateral Lung location: lower lobe of lung Qualified Code(s): J15.6 - Pneumonia due to other Gram-negative bacteria (4) Hypertension Current Visit: Yes Status: Chronic Qualifiers: Hypertension type: essential hypertension Qualified Code(s): I10 - Essential (primary) hypertension (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 (6) Aphasia Current Visit: Yes Status: Chronic - Constitutional Vitals: Temp Pulse Resp BP Pulse Ox 98.1 F 75 18 106/67 92 10/09/17 15:05 10/09/17 15:05 10/09/17 15:05 10/09/17 15:05 10/09/17 15:05 Internal Medicine: Result - Labs CBC & Chem 7: 10/09/17 06:42 10/09/17 06:42 Labs: Short CBC 10/09/17 Range/Units 06:42 WBC 10.1 (4.3-11.1) K/mcL Hgb 13.9 (12.9-16.9) g/dL Hct 41.6 (37.5-50.1) % Plt Count 301 (140-400) K/mcL Neutrophils # 7.1 (1.6-8.9) K/mcL BMP 10/09/17 06:42 Sodium 136 Potassium 3.6 Chloride 102 Carbon Dioxide 24 BUN 9 Creatinine 0.57 L Glucose 101 Calcium 9.6 - ABG Interpretation ABG results: PT/INR, D-dimer PT 11.3 Seconds (9.4-12.1) 10/07/17 21:17 - Attending Attestation I examined this patient and my medical decision-making was reviewed with the Resident Physician on 10/09/17. I agree with the documented findings, disposition and treatment plan as described except to the extent set forth below. Mr Hicks is currently admitted for pneumonia. He remains moderate to high risk due to potential for worsening clinical status. Mr Hicks is feeling better overall. Less cough and dyspnea. No fever. No GI issues. Exam alert Comfortable Mucus membranes dry Heart distant Few rhonchi noted Abd soft I/P 1. PNA 2. CVA history Further diagnoses and plan as above.
[2017-10-10] MEDS: Piperacillin/Tazobactam 3.375 GM in 0.9 % Sodium Chloride Mini Bag 100 ML IVPB SCH ×3 (00:09→17:14)
[2017-10-10] MEDS: *HR* Heparin 5,000 UNIT/ML VIAL SQ SCH ×2 (05:06→17:24)
[2017-10-10 05:47] LABS: Basophils # 0.1 K/mcL (0.0-0.2); Eosinophils # 0.4 K/mcL (0.0-0.6); Eosinophils % 4.2 %; Hematocrit 39.4 % (37.5-50.1); Immature Granulocytes % 0.2 % (0-4); Lymphocytes % 24.5 %; Mean Corpuscular Hemoglobin 30.2 pg (28.0-33.3); Mean Corpuscular Volume 91.4 fL (83.0-100.0); Mean Platelet Volume 9.3 fL (9.4-12.4); Monocytes # 0.9 K/mcL (0.0-1.3); Monocytes % 10.5 %; Neutrophils # 4.9 K/mcL (1.6-8.9); Platelet Count 308 K/mcL (140-400); Red Blood Count 4.31 M/mcL (4.19-5.50); Red Cell Distribution Width 15.4 % (11.5-14.5); Segmented Neutrophils % 59.6 %
[2017-10-10 05:58] LABS: BUN/Creatinine Ratio 13 (6-26); Blood Urea Nitrogen 10 mg/dL (8-23); Calcium 9.5 mg/dL (8.6-10.3); Carbon Dioxide 26 mEq/L (23-29); Chloride 103 mEq/L (98-107); Glucose 92 mg/dL (70-105); Magnesium 2.1 mg/dL (1.6-2.6); Osmolality,Calculated 281 (280-300); Potassium 3.7 mEq/L (3.5-5.1); Sodium 136 mEq/L (136-145); eGFR For African Americans > 60 (> 60); eGFR For Non-African Americans > 60 (> 60)
[2017-10-10] MEDS: Budesonide/Formoterol 160/4.5 MDI IH SCH ×2 (08:29→20:28)
[2017-10-10] MEDS: hydroCHLOROthiazide 25 MG TABLET PO SCH (10:33)
[2017-10-10] MEDS: Aspirin 81 MG TAB.CHEW PO SCH (10:34)
[2017-10-10] MEDS: Lisinopril 20 MG TABLET PO SCH (10:34)
[2017-10-10] MEDS: Sennosides 8.6 MG TABLET PO SCH (10:34)
[2017-10-10] MEDS: Multivit/Ca/Min/Fe/FA 1 TAB TABLET PO SCH (10:34)
[2017-10-10] MEDS: amLODIPine 5 MG TABLET PO SCH (10:34)
[2017-10-10] MEDS: traMADol 50 MG TABLET PO PRN (13:51)
--- NOTE | 2017-10-10 19:12 | Internal Med Progress Note ---
Date of Encounter: 10/10/17 Time of Encounter: 09:00 - Assessment and plan (1) UTI (urinary tract infection) Current Visit: Yes Status: Acute Assessment and plan: Patient has Klebsiella in his urine. Currently on abx. Anticipate d/c tomorrow on PO abx to complete course. Qualifiers: Urinary tract infection type: acute cystitis Hematuria presence: with hematuria Qualified Code(s): N30.01 - Acute cystitis with hematuria (2) Sepsis Current Visit: Yes Status: Resolved Assessment and plan: resolved. Qualifiers: Sepsis type: sepsis due to unspecified organism Qualified Code(s): A41.9 - Sepsis, unspecified organism (3) Pneumonia Current Visit: Yes Status: Suspected Assessment and plan: Pt has improved with treatment of UTI. Doubt pneumonia at this time. Qualifiers: Pneumonia type: due to other aerobic Gram-negative bacteria Laterality: bilateral Lung location: lower lobe of lung Qualified Code(s): J15.6 - Pneumonia due to other Gram-negative bacteria (4) Hypertension Current Visit: Yes Status: Chronic Assessment and plan: Pressure under good control. Continue medication. Qualifiers: Hypertension type: essential hypertension Qualified Code(s): I10 - Essential (primary) hypertension (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 Assessment and plan: Chronic issue. (6) Aphasia Current Visit: Yes Status: Chronic Assessment and plan: Chronic issue - Subjective Interval history: Mr Hicks is currently admitted for sepsis related to UTI. He has been improving. He remains moderate to high risk due to potential for worsening clinical status. Mr Hicks feels OK. He denies CP or SOB. No fever or GI issues. Tolerating IV abx. - Constitutional Vitals: Temp Pulse Resp BP Pulse Ox 99.3 F 81 14 119/72 93 10/10/17 15:24 10/10/17 15:24 10/10/17 15:24 10/10/17 15:24 10/10/17 15:24 General appearance: Present: A&O X 3, no acute distress - Head Head exam: Present: normocephalic - Eye Eye exam: Present: conjuntiva pink - ENT ENT exam: Present: mucous membranes moist - Respiratory Respiratory exam: Present: decreased breath sounds, rhonchi. Absent: rales, wheezes - Cardiovascular Cardiovascular exam: Present: RRR. Absent: tachycardia - GI/Abdominal GI/Abdominal exam: Present: soft. Absent: tenderness - Extremities Exam Extremities exam: Present: warm. Absent: tenderness - Neurological Exam Neurological exam: Present: alert, speech deficit - Skin Skin exam: Present: dry, warm Internal Medicine: Result - Labs CBC & Chem 7: 10/10/17 04:52 10/10/17 04:52 Labs: Short CBC 10/10/17 Range/Units 04:52 WBC 8.3 (4.3-11.1) K/mcL Hgb 13.0 (12.9-16.9) g/dL Hct 39.4 (37.5-50.1) % Plt Count 308 (140-400) K/mcL Neutrophils # 4.9 (1.6-8.9) K/mcL BMP 10/10/17 04:52 Sodium 136 Potassium 3.7 Chloride 103 Carbon Dioxide 26 BUN 10 Creatinine 0.77 Glucose 92 Calcium 9.5 - ABG Interpretation ABG results: PT/INR, D-dimer PT 11.3 Seconds (9.4-12.1) 10/07/17 21:17 Consult Discharge Plan - Plan Referrals: Tio Lincoln [Primary Care Provider] - 10/15/17 1:20 pm
[2017-10-11] MEDS: Piperacillin/Tazobactam 3.375 GM in 0.9 % Sodium Chloride Mini Bag 100 ML IVPB SCH ×2 (00:27→09:47)
[2017-10-11] MEDS: *HR* Heparin 5,000 UNIT/ML VIAL SQ SCH (05:23)
[2017-10-11 05:56] LABS: Basophils # 0.1 K/mcL (0.0-0.2); Eosinophils # 0.3 K/mcL (0.0-0.6); Eosinophils % 3.1 %; Hematocrit 39.9 % (37.5-50.1); Hemoglobin 13.4 g/dL (12.9-16.9); Immature Granulocytes % 0.3 % (0-4); Lymphocytes # 1.9 K/mcL (0.6-4.6); Lymphocytes % 20.3 %; Mean Corpuscular HGB Conc 33.6 g/dL (31.6-35.5); Mean Corpuscular Hemoglobin 30.7 pg (28.0-33.3); Mean Corpuscular Volume 91.5 fL (83.0-100.0); Monocytes % 11.3 %; Neutrophils # 5.8 K/mcL (1.6-8.9); Platelet Count 332 K/mcL (140-400); Red Blood Count 4.36 M/mcL (4.19-5.50); Red Cell Distribution Width 15.3 % (11.5-14.5)
[2017-10-11 06:05] LABS: BUN/Creatinine Ratio 13 (6-26); Blood Urea Nitrogen 11 mg/dL (8-23); Calcium 9.6 mg/dL (8.6-10.3); Carbon Dioxide 27 mEq/L (23-29); Chloride 101 mEq/L (98-107); Glucose 91 mg/dL (70-105); Osmolality,Calculated 281 (280-300); Potassium 4.1 mEq/L (3.5-5.1); Sodium 136 mEq/L (136-145); eGFR For African Americans > 60 (> 60); eGFR For Non-African Americans > 60 (> 60)
[2017-10-11 06:54] VITALS: BP 112/71
--- NOTE | 2017-10-11 09:11 | Discharge Summary ---
Orders not resulted at time of discharge: Pending orders 10/12/17 04:00 Basic Metabolic Panel AM 0400 Complete Blood Count [HEME] AM 0400 Magnesium AM 0400 10/13/17 04:00 Basic Metabolic Panel AM 0400 Complete Blood Count [HEME] AM 0400 Magnesium AM 0400 Date of Encounter: 10/11/17 Time of Encounter: 10:09 - Discharge Diagnosis (1) UTI (urinary tract infection) Priority: Primary Status: Resolved Qualifiers: Urinary tract infection type: acute cystitis Hematuria presence: with hematuria Qualified Code(s): N30.01 - Acute cystitis with hematuria (2) Sepsis Priority: Primary Status: Resolved Qualifiers: Sepsis type: sepsis due to unspecified organism Qualified Code(s): A41.9 - Sepsis, unspecified organism (3) Pneumonia Priority: Secondary Status: Suspected Qualifiers: Pneumonia type: due to other aerobic Gram-negative bacteria Laterality: bilateral Lung location: lower lobe of lung Qualified Code(s): J15.6 - Pneumonia due to other Gram-negative bacteria (4) Hypertension Priority: Secondary Status: Chronic Qualifiers: Hypertension type: essential hypertension Qualified Code(s): I10 - Essential (primary) hypertension (5) Dysarthria Priority: Secondary Status: Chronic (6) Aphasia Priority: Secondary Status: Chronic (7) History of CVA (cerebrovascular accident) Priority: Secondary Status: Chronic Hospital course: Mr. Hicks is a 61 year old male with hx of CVA brought to ED with sepsis. He was found to have UTI and most likely have PNA as well and was subsequently admitted. Mr Hicks was admitted to [facility]. He was started on IV abx. He has good response to these and slowly improved. No new issues noted. Today he is afebrile and felt ready to return to ECF. He has tolerated abx well and will complete a course PO. Discharge discussed with: patient - Time Spent with Patient Total time spent providing and/or coordinating discharge services: 42min - Discharge Medications Prescriptions: cephALEXin [Keflex] 500 mg PO BID #15 capsule Home Medications: Amlodipine Besylate 10 mg PO 0800 05/24/17 [History] Aspirin 81 mg PO 0800 05/24/17 [History] Acetaminophen [Tylenol] 650 mg PO TID PRN 10/08/17 [History] Atorvastatin Calcium [Lipitor] 80 mg PO HS 10/08/17 [History] Bisacodyl [Dulcolax] 10 mg RC DAILY PRN 10/08/17 [History] Budesonide/Formoterol 160/4.5 [Symbicort 160/4.5] 2 puff IH BIDR 10/08/17 [ History] Carvedilol 12.5 mg PO BID 10/08/17 [History] Docusate Sodium [Dok] 100 mg PO BID 10/08/17 [History] Lisinopril [Zestril] 20 mg PO 0800 10/08/17 [History] Magnesium Hydroxide [Milk of Magnesia] 30 ml PO DAILY PRN 10/08/17 [History] Multivit-Min/FA/Lycopen/Lutein [A Thru Z Select Men 50+ Tablet] 1 tab PO DAILY 10/08/17 [History] Potassium Chloride [Klor-Con 10] 10 meq PO 0800 10/08/17 [History] Sennosides [Senna] 8.6 mg PO 0800 10/08/17 [History] Tramadol HCl [Ultram] 50 mg PO QID PRN 10/08/17 [History] hydroCHLOROthiazide [Hydrochlorothiazide] 12.5 mg PO 0800 10/08/17 [History] GuaiFENesin/Dextromethorphan [Robitussin/Dm] 10 ml PO Q6HR PRN udc 10/11/17 [Rx ] cephALEXin [Keflex] 500 mg PO BID #15 capsule 10/11/17 [Rx] Allergies/Adverse Reactions: 3 Allergy/AdvReac Type Severity Reaction Status Date / Time No Known Allergies Allergy Verified 05/24/17 16:00 Date of admission: 10/08/17 03:54 Primary care physician: Tio Lincoln Consults: 10/08/17 11:55 Consult to Speech Therapy [CONS] Routine Comment: Evaluate, develop and implement POC Reason for Consult: Pneumonia/hx of stroke/?aspiration Call Completed: Yes Discharging clinician: Bc Paul Anticipated date of discharge: 10/11/17 - Constitutional Vitals: Temp Pulse Resp BP Pulse Ox 98.5 F 73 14 112/71 91 10/11/17 06:50 10/11/17 06:50 10/11/17 06:50 10/11/17 06:50 10/11/17 06:50 General appearance: Present: A&O X 3, no acute distress - Head Head exam: Present: normocephalic - Eye Eye exam: Present: conjuntiva pink - ENT ENT exam: Present: mucous membranes moist - Respiratory Respiratory exam: Present: CTAB. Absent: rhonchi, wheezes - Cardiovascular Cardiovascular exam: Present: RRR. Absent: tachycardia - Extremities Exam Extremities exam: Present: warm. Absent: tenderness - Neurological Exam Neurological exam: Present: alert, speech deficit - Patient Status Disposition: Transfer SNF Condition: Good Functional capacity at discharge: uses cane/walker Overall status at discharge: patient is progressing back to baseline - Discharge Instructions Instructions: Pneumonia (DC) Follow Up With: Tio iLncoln [Primary Care Provider] - 10/15/17 1:20 pm - Diet and Activity Activity: increase activity as tolerated Diet: advance to your usual diet
[2017-10-11] MEDS: Budesonide/Formoterol 160/4.5 MDI IH SCH (09:12)
[2017-10-11] MEDS: Aspirin 81 MG TAB.CHEW PO SCH (09:48)
[2017-10-11] MEDS: Lisinopril 20 MG TABLET PO SCH (09:48)
[2017-10-11] MEDS: traMADol 50 MG TABLET PO PRN (09:48)
[2017-10-11] MEDS: hydroCHLOROthiazide 25 MG TABLET PO SCH (09:49)
[2017-10-11] MEDS: Multivit/Ca/Min/Fe/FA 1 TAB TABLET PO SCH (09:49)
[2017-10-11] MEDS: amLODIPine 5 MG TABLET PO SCH (09:49)
[2017-10-11] MEDS: Sennosides 8.6 MG TABLET PO SCH (09:49)
--- NOTE | 2017-10-11 10:15 | Physician Discharge Referral ---
ExtendedCare Referral Info Provider in Charge after Transfer: PCP Institutional Level of Care: Skilled - Diagnosis (1) UTI (urinary tract infection) Priority: Primary Status: Resolved (2) Sepsis Priority: Primary Status: Resolved (3) Pneumonia Priority: Secondary Status: Suspected (4) Hypertension Priority: Secondary Status: Chronic (5) Dysarthria Priority: Secondary Status: Chronic (6) Aphasia Priority: Secondary Status: Chronic (7) History of CVA (cerebrovascular accident) Priority: Secondary Status: Chronic Prognosis: Good Aware of Diagnosis: Patient Aware of Prognosis: Patient - Transfer Medications Prescriptions: cephALEXin [Keflex] 500 mg PO BID #15 capsule Home Medications: Amlodipine Besylate 10 mg PO 0800 05/24/17 [History] Aspirin 81 mg PO 0800 05/24/17 [History] Acetaminophen [Tylenol] 650 mg PO TID PRN 10/08/17 [History] Atorvastatin Calcium [Lipitor] 80 mg PO HS 10/08/17 [History] Bisacodyl [Dulcolax] 10 mg RC DAILY PRN 10/08/17 [History] Budesonide/Formoterol 160/4.5 [Symbicort 160/4.5] 2 puff IH BIDR 10/08/17 [ History] Carvedilol 12.5 mg PO BID 10/08/17 [History] Docusate Sodium [Dok] 100 mg PO BID 10/08/17 [History] Lisinopril [Zestril] 20 mg PO 0800 10/08/17 [History] Magnesium Hydroxide [Milk of Magnesia] 30 ml PO DAILY PRN 10/08/17 [History] Multivit-Min/FA/Lycopen/Lutein [A Thru Z Select Men 50+ Tablet] 1 tab PO DAILY 10/08/17 [History] Potassium Chloride [Klor-Con 10] 10 meq PO 0800 10/08/17 [History] Sennosides [Senna] 8.6 mg PO 0800 10/08/17 [History] Tramadol HCl [Ultram] 50 mg PO QID PRN 10/08/17 [History] hydroCHLOROthiazide [Hydrochlorothiazide] 12.5 mg PO 0800 10/08/17 [History] GuaiFENesin/Dextromethorphan [Robitussin/Dm] 10 ml PO Q6HR PRN udc 10/11/17 [Rx ] cephALEXin [Keflex] 500 mg PO BID #15 capsule 10/11/17 [Rx] Allergies/Adverse Reactions: 3 Allergy/AdvReac Type Severity Reaction Status Date / Time No Known Allergies Allergy Verified 05/24/17 16:00 - Respiratory Orders Oxygen / L per min (Maintain saturation greater than 90%) Smoking Cessation: Smoking cessation has been advised. For more information, call the [employer] Quit Line at 7-827-PSGT-NOW. - Ancillary Orders May use pressure relief devices daily prn, May consult with Dentist, Digital Traffic Coordinator, Slag Production Worker PRN - Advance Directives Code Status: DNR-Arrest/Don't Intubate - Mobility Orders Chair - Rehabiliation Orders Rehab Potential: Fair Rehab Orders: Evaluation for Physical Therapy, Evaluation for Occupational Therapy - Treatments Skin tear care topically daily PRN per policy, May check for fecal impaction rectally daily PRN, Fleet enema rectally every other day PRN cleansing purposes - Diet Orders Cardiac CERTIFICATION: I certify that the transfer of the above named patient to an Extended Care Facility is necessary for the continuing treatment of the diagnosis listed. The above information is true and accurate reflection of patient's current condition. Confidential - Redisclosure prohibited without a patient's written consent.
== END 2017-10-11 15:01 | DRG 720 ==
LOC: ICNU 20:37 → EMEROO 20:37 → ICNU 10-08 00:50 → SUATTDRO 10-08 03:54 → 3ANU 10-09 00:02
PROVIDERS: ADMIT Internal Medicine; ATTEND Internal Medicine

== ENCOUNTER 2018-04-26 16:50 | Observation (INO) ==
[2018-04-26] MEDS ORDERED: Ipratropium/Albuterol Neb 3 ML IH ONE (17:04)
--- NOTE | 2018-04-26 17:35 | Emergency Department Note ---
Disposition Clinical Impression: Seizure Disposition: Admitted As Inpatient Condition: Good Forms: ED Satisfaction Letter General Adult HPI - General Chief complaint: ED Seizure Stated complaint: seizure Time Seen by Provider: 04/26/18 17:02 Source: EMS Mode of arrival: ambulatory Limitations: no limitations Nursing Notes Reviewed: Yes Vital Signs Reviewed: Yes - History of Present Illness HPI Narrative: Patient presents today from shelter for evaluation of seizure. Patient has not had any history of seizures. Patient had a stroke approximately 1 year ago. Patient has had right-sided deficits including facial droop, speech deficits, right-sided weakness. The patient communicates with yes and no and has several "tools at the shelter". The patient also has a past medical history of emphysema, hypertension, hyperlipidemia. The patient symptoms are described as foaming at the mouth and movement of the upper extremity on the left. The patient's symptoms last approximately 2 minutes and resolved. Patient's mental status is hard to evaluate but they said he came back to baseline. The patient is able to answer yes and no questions. Patient's vital signs are stable upon arrival by EMS. Blood glucose of 119. Patient has not had any specific complaints. Patient will be evaluated for possible stroke versus sepsis. Pain Scale: 0 - Related Data Home Medications Medication Instructions Recorded Confirmed Amlodipine Besylate 10 mg PO 0800 05/24/17 10/08/17 Aspirin 81 mg PO 0800 05/24/17 10/08/17 Acetaminophen [Tylenol] 650 mg PO TID PRN 10/08/17 10/08/17 Atorvastatin Calcium [Lipitor] 80 mg PO HS 10/08/17 10/08/17 Bisacodyl [Dulcolax] 10 mg RC DAILY PRN 10/08/17 10/08/17 Budesonide/Formoterol 160/4.5 2 puff IH BIDR 10/08/17 10/08/17 [Symbicort 160/4.5] Carvedilol 12.5 mg PO BID 10/08/17 10/08/17 Docusate Sodium [Dok] 100 mg PO BID 10/08/17 10/08/17 Lisinopril [Zestril] 20 mg PO 0800 10/08/17 10/08/17 Magnesium Hydroxide [Milk of 30 ml PO DAILY PRN 10/08/17 10/08/17 Magnesia] Multivit-Min/FA/Lycopen/Lutein [A 1 tab PO DAILY 10/08/17 10/08/17 Thru Z Select Men 50+ Tablet] Potassium Chloride [Klor-Con 10] 10 meq PO 0800 10/08/17 10/08/17 Sennosides [Senna] 8.6 mg PO 0800 10/08/17 10/08/17 Tramadol HCl [Ultram] 50 mg PO QID PRN 10/08/17 10/08/17 hydroCHLOROthiazide 12.5 mg PO 0800 10/08/17 10/08/17 [Hydrochlorothiazide] Previous Rx's Medication Instructions Recorded GuaiFENesin/Dextromethorphan 10 ml PO Q6HR PRN udc 10/11/17 [Robitussin/Dm] cephALEXin [Keflex] 500 mg PO BID #15 capsule 10/11/17 Allergies Allergy/AdvReac Type Severity Reaction Status Date / Time No Known Allergies Allergy Verified 04/26/18 17:03 Limitations: ROS unobtainable due to patients medical condition (Significantly limited to yes no questions) Constitutional: Denies: fever Cardiovascular: Denies: chest pain Respiratory: Denies: cough Gastrointestinal: Denies: abdominal pain, vomiting Musculoskeletal: Denies: back pain Neurological: Reports: other (Seizure) Past Medical History - Past Medical History Medical history: Reports: COPD, CVA, hyperlipidemia, hypertension Psychiatric history: Reports: no psych history - Social History Smoking Status: Current every day smoker Alcohol use: Reports: none Drug use: Reports: none Physical Exam General: Patient able to communicate with yes and no type answers. He is able to shake his head both yes and no. His verbal answers of yes and no do sound very similar in nature but that are distinguishable. Head: Normocephalic Atraumatic Eyes: PERRL, EOMI ENT: Airway patent, no stridor Neck: supple Chest: Wheezing with rhonchi on the right Cardiac: Regular rhythm Abdomen: soft, nontender, nondistended; no guarding, rebound, or tenderness to percussion Musculoskeletal: Patient with right-sided deficits. Swelling to the right arm and the right leg is likely chronic. Skin: No rash, normal skin tone Neuro: Patient is awake and interactive in the capacity that his previous stroke deficits are about to let him communicate. Movement of the left extremities. Shakes his head yes and no. Does attempt saying yes and no however it is hard to distinguish. Course - Reevaluation(s) Reevaluation #1: Notified of elevated lactic acid. In the setting of seizure this is consistent with seizure. Sepsis workup has been initiated and is pending. Patient has received a liter of fluids with no known history of heart failure. Patient's lactate will be tested 2 hours after initial arrival to ensure that is down trending more consistent with seizure. - Consultations Consultation #1: Discussed with Dr. Vazquez, neurology, Keppra can be given in the emergency department and continued at 500 twice a day Discussed with Dr. Montoya. Patient accepted for admission. Vital Signs Temperature 97.7 F 04/26/18 16:56 Pulse Rate 79 04/26/18 16:56 Respiratory Rate 20 04/26/18 16:56 Blood Pressure 149/86 04/26/18 16:56 O2 Sat by Pulse Oximetry 94 04/26/18 16:56 Temperature 97.7 F 04/26/18 16:56 Pulse Rate 86 04/26/18 20:18 Respiratory Rate 20 04/26/18 20:18 Blood Pressure 136/76 04/26/18 20:18 O2 Sat by Pulse Oximetry 95 04/26/18 20:18 Oxygen Delivery Oxygen Delivery Room Air Medical Decision Making - Medical Records Medical records reviewed: Yes I reviewed the patient's medical records. - Lab Data Lab results reviewed: Yes I reviewed the patient's lab results. Result diagrams: 04/26/18 17:25 04/26/18 17:25 Lab Results 04/26/18 04/26/18 04/26/18 Range/Units 17:24 17:25 17:25 WBC 9.8 (4.3-11.1) K/mcL RBC 4.56 (4.19-5.50) M/mcL Hgb 14.5 (12.9-16.9) g/dL Hct 42.9 (37.5-50.1) % MCV 94.1 (83.0-100.0) fL MCH 31.8 (28.0-33.3) pg MCHC 33.8 (31.6-35.5) g/dL RDW 13.0 (11.5-14.5) % Plt Count 323 (140-400) K/mcL MPV 9.5 (9.4-12.4) fL Immature Gran % 0.9 (0-4) % Seg Neutrophils % 63.2 % Lymphocytes % 21.2 % Monocytes % 9.0 % Eosinophils % 4.7 % Basophils % 1.0 % Neutrophils # 6.2 (1.6-8.9) K/mcL Lymphocytes # 2.1 (0.6-4.6) K/mcL Monocytes # 0.9 (0.0-1.3) K/mcL Eosinophils # 0.5 (0.0-0.6) K/mcL Basophils # 0.1 (0.0-0.2) K/mcL PT 10.5 (9.4-12.1) Seconds INR 0.9 Sodium (136-145) mEq/L Potassium (3.5-5.1) mEq/L Chloride (98-107) mEq/L Carbon Dioxide (23-29) mEq/L BUN (8-23) mg/dL Creatinine (0.70-1.30) mg/dL Est GFR ( Amer) (> 60) Est GFR (Non-Af Amer) (> 60) BUN/Creatinine Ratio (6-26) Glucose (70-105) mg/dL Calculated Osmolality (280-300) Lactic Acid 4.1 H* (0.5-2.2) mmol/L Calcium (8.6-10.3) mg/dL Phosphorus (2.7-4.5) mg/dL Magnesium (1.6-2.6) mg/dL Total Bilirubin (0.3-1.0) mg/dL Direct Bilirubin (0.0-0.2) mg/dL Indirect Bilirubin (0.0-1.2) mg/dL AST (13-39) Units/L ALT (7-52) Units/L Alkaline Phosphatase (34-104) Units/L Troponin I (< 0.04) ng/mL Serum Total Protein (6.4-8.9) g/dL Albumin (3.5-5.7) g/dL Globulin (2.4-3.5) g/dL Albumin/Globulin Ratio (1.1-2.2) Urine Color (Yellow) Urine Clarity (Clear) Urine pH (5.0-8.0) pH Units Ur Specific Hoven (1.010-1.025) Urine Protein (Neg-Trace) mg/dL Urine Glucose (UA) (Normal) mg/dL Urine Ketones (Negative) mg/dL Urine Blood (Negative) Urine Nitrite (Negative) Urine Bilirubin (Negative) Urine Urobilinogen (Normal) mg/dL Ur Leukocyte Esterase (Negative) Urine Microscopic RBC (0-3) per hpf Urine Microscopic WBC (0-3) per hpf Ur Squamous Epith Cells (None-Few) per lpf Urine Bacteria (None-Few) per hpf Hyaline Casts (None-Few) per lpf Ur Culture Indicated? (NO) 04/26/18 04/26/18 Range/Units 17:25 17:45 WBC (4.3-11.1) K/mcL RBC (4.19-5.50) M/mcL Hgb (12.9-16.9) g/dL Hct (37.5-50.1) % MCV (83.0-100.0) fL MCH (28.0-33.3) pg MCHC (31.6-35.5) g/dL RDW (11.5-14.5) % Plt Count (140-400) K/mcL MPV (9.4-12.4) fL Immature Gran % (0-4) % Seg Neutrophils % % Lymphocytes % % Monocytes % % Eosinophils % % Basophils % % Neutrophils # (1.6-8.9) K/mcL Lymphocytes # (0.6-4.6) K/mcL Monocytes # (0.0-1.3) K/mcL Eosinophils # (0.0-0.6) K/mcL Basophils # (0.0-0.2) K/mcL PT (9.4-12.1) Seconds INR Sodium 131 L (136-145) mEq/L Potassium 3.9 (3.5-5.1) mEq/L Chloride 97 L (98-107) mEq/L Carbon Dioxide 23 (23-29) mEq/L BUN 13 (8-23) mg/dL Creatinine 0.77 (0.70-1.30) mg/dL Est GFR ( Amer) > 60 (> 60) Est GFR (Non-Af Amer) > 60 (> 60) BUN/Creatinine Ratio 17 (6-26) Glucose 139 H (70-105) mg/dL Calculated Osmolality 274 L (280-300) Lactic Acid (0.5-2.2) mmol/L Calcium 9.5 (8.6-10.3) mg/dL Phosphorus 3.7 (2.7-4.5) mg/dL Magnesium 2.1 (1.6-2.6) mg/dL Total Bilirubin 0.4 (0.3-1.0) mg/dL Direct Bilirubin 0.1 (0.0-0.2) mg/dL Indirect Bilirubin 0.3 (0.0-1.2) mg/dL AST 17 (13-39) Units/L ALT 24 (7-52) Units/L Alkaline Phosphatase 70 (34-104) Units/L Troponin I < 0.03 (< 0.04) ng/mL Serum Total Protein 7.2 (6.4-8.9) g/dL Albumin 4.2 (3.5-5.7) g/dL Globulin 3.0 (2.4-3.5) g/dL Albumin/Globulin Ratio 1.4 (1.1-2.2) Urine Color Yellow (Yellow) Urine Clarity Clear (Clear) Urine pH 6.5 (5.0-8.0) pH Units Ur Specific Hoven 1.007 L (1.010-1.025) Urine Protein Trace (Neg-Trace) mg/dL Urine Glucose (UA) Normal (Normal) mg/dL Urine Ketones Negative (Negative) mg/dL Urine Blood Negative (Negative) Urine Nitrite Negative (Negative) Urine Bilirubin Negative (Negative) Urine Urobilinogen Normal (Normal) mg/dL Ur Leukocyte Esterase Negative (Negative) Urine Microscopic RBC 3-5 H (0-3) per hpf Urine Microscopic WBC 0-3 (0-3) per hpf Ur Squamous Epith Cells Many H (None-Few) per lpf Urine Bacteria None Seen (None-Few) per hpf Hyaline Casts None Seen (None-Few) per lpf Ur Culture Indicated? NO (NO) - Radiology Data Radiology results reviewed: Yes I reviewed the patient's radiology results. - EKG Data EKG #1 EKG attestation: Yes I reviewed and interpreted this EKG. EKG results narrative: Sinus rhythm with a heart rate of 80. NM interval 157. QRS 77. QTC 451. Patient has no significant ST elevations or depressions. No previous changes from 10/08/17.
[2018-04-26 17:39] LABS: Basophils # 0.1 K/mcL (0.0-0.2); Eosinophils # 0.5 K/mcL (0.0-0.6); Eosinophils % 4.7 %; Hematocrit 42.9 % (37.5-50.1); Hemoglobin 14.5 g/dL (12.9-16.9); Immature Granulocytes % 0.9 % (0-4); Lymphocytes # 2.1 K/mcL (0.6-4.6); Lymphocytes % 21.2 %; Mean Corpuscular HGB Conc 33.8 g/dL (31.6-35.5); Mean Corpuscular Hemoglobin 31.8 pg (28.0-33.3); Mean Corpuscular Volume 94.1 fL (83.0-100.0); Mean Platelet Volume 9.5 fL (9.4-12.4); Monocytes # 0.9 K/mcL (0.0-1.3); Neutrophils # 6.2 K/mcL (1.6-8.9); Platelet Count 323 K/mcL (140-400); Red Blood Count 4.56 M/mcL (4.19-5.50); Segmented Neutrophils % 63.2 %
[2018-04-26 17:47] LABS: INR 0.9; Prothrombin Time 10.5 Seconds (9.4-12.1)
[2018-04-26 17:54] LABS: Bilirubin,Urine Negative (Negative); Blood,Urine Negative (Negative); Clarity,Urine Clear (Clear); Color,Urine Yellow (Yellow); Glucose,Urine (UA) Normal (Normal); Ketones,Urine Negative (Negative); Leukocyte Esterase,Urine Negative (Negative); Nitrite,Urine Negative (Negative); PH,Urine 6.5 pH Units (5.0-8.0); Protein,Urine Trace mg/dL (Neg-Trace); Specific Gravity,Urine 1.007 (1.010-1.025); Urobilinogen,Urine Normal (Normal)
[2018-04-26 18:00] LABS: Alanine Aminotransferase 24 Units/L (7-52); Albumin 4.2 g/dL (3.5-5.7); Albumin/Globulin Ratio 1.4 (1.1-2.2); Alkaline Phosphatase 70 Units/L (34-104); Aspartate Amino Transferase 17 Units/L (13-39); BUN/Creatinine Ratio 17 (6-26); Bilirubin,Direct 0.1 mg/dL (0.0-0.2); Bilirubin,Indirect 0.3 mg/dL (0.0-1.2); Bilirubin,Total 0.4 mg/dL (0.3-1.0); Blood Urea Nitrogen 13 mg/dL (8-23); Calcium 9.5 mg/dL (8.6-10.3); Carbon Dioxide 23 mEq/L (23-29); Chloride 97 mEq/L (98-107); Glucose 139 mg/dL (70-105); Magnesium 2.1 mg/dL (1.6-2.6); Osmolality,Calculated 274 (280-300); Phosphorous 3.7 mg/dL (2.7-4.5); Potassium 3.9 mEq/L (3.5-5.1); Sodium 131 mEq/L (136-145); Total Protein 7.2 g/dL (6.4-8.9); Troponin I < 0.03 ng/mL (< 0.04); eGFR For Non-African Americans > 60 (> 60)
[2018-04-26] MEDS ORDERED: 0.9 % Sodium Chloride 1,000 ML IVC ONE (18:04)
[2018-04-26 18:08] LABS: Bacteria,Urine None Seen per hpf (None-Few); Hyaline Casts,Urine None Seen per lpf (None-Few); Squamous Epithelial Cell,Urine Many per lpf (None-Few); WBC,Urine 0-3 per hpf (0-3)
[2018-04-26] MEDS ORDERED: levETIRAcetam 1,000 MG in 0.9 % Sodium Chloride 100 ML IVPB STA (18:38)
[2018-04-26] MEDS ORDERED: Acetaminophen 325 MG TABLET PO PRN (21:53)
[2018-04-26] MEDS ORDERED: Naloxone 0.4 MG/ML INJ IVP PRN (21:53)
[2018-04-26] MEDS ORDERED: *HR* Promethazine 25 MG/ML VIAL IVP PRN (21:57)
--- NOTE | 2018-04-26 22:41 | Internal Med History&Physical ---
Date of Encounter: 04/26/18 Time of Encounter: 21:10 Internal Medicine - H&P: HPI Chief complaint: seizure Admitted From: Emergency Dept Plans for Post Hospital Care: Transfer Longterm Facility History of present illness: Mr. Hicks is a 62 year old male who presents to the ER after having a seizure as witnessed by nursing staff at his ECF. He was seen and evaluated in the ER where his workup was essentially unremarkable except for some mild hyponatremia. CT scan of the head revealed encephalomalacia in the area of his old stroke from last year. He was started on Keppra and admitted to hospitalist service with a neurology consultation. Upon my assessment of the patient in the ER, patient is at his baseline according to his sister who is present at the bedside. He has residual expressive aphasia from his stroke, and he is at his baseline according to his sister. He has had no prior history of seizures. He has right-sided deficits from the stroke as well as his expressive aphasia. Given the new seizure onset , we will proceed with further treatment and workup. He has had no reported fevers, cough, shortness breath, vomiting, or diarrhea. His sister states he is at his baseline now and back to his normal level of function. He is not diabetic, and he has not had any history of hypoglycemia. I discussed CODE STATUS with patient and his sister, and they both confirm that he is DNR CC-Arrest/DNI. Past Med Surg Social Fam HX - Past Medical History Attestation: Yes The following information was validated with the patient. Source: patient, old records reviewed, obtained from family Medical history: COPD, CVA, hyperlipidemia, hypertension Additional medical history: recent CVA with aphasia and right side residual Psychiatric history: no psych history - Past Surgical History Surgical History: no surgical history (other than PEG) Additional surgical history: peg tube - Social History Smoking Status: Current every day smoker Alcohol use: none Drug use: none Current living situation: [facility] Activity Level: Wheelchair bound, Mostly sedentary Recent Out of Country Travel Within the Last 8 Weeks: No - Family History Father Hx Family Cardiac Disorders: Yes (HTN) Hx Family Cancer: Yes (colon cancer) Mother Hx Family Endocrine Disorder: (DM) Internal Medicine - H&P: Meds Amlodipine Besylate 10 mg PO 0800 05/24/17 [History] Aspirin 81 mg PO 0800 05/24/17 [History] Acetaminophen [Tylenol] 650 mg PO TID PRN 10/08/17 [History] Atorvastatin Calcium [Lipitor] 80 mg PO HS 10/08/17 [History] Bisacodyl [Dulcolax] 10 mg RC DAILY PRN 10/08/17 [History] Budesonide/Formoterol 160/4.5 [Symbicort 160/4.5] 2 puff IH BIDR 10/08/17 [ History] Carvedilol 12.5 mg PO BID 10/08/17 [History] Docusate Sodium [Dok] 100 mg PO BID 10/08/17 [History] Lisinopril [Zestril] 20 mg PO 0800 10/08/17 [History] Magnesium Hydroxide [Milk of Magnesia] 30 ml PO DAILY PRN 10/08/17 [History] Multivit-Min/FA/Lycopen/Lutein [A Thru Z Select Men 50+ Tablet] 1 tab PO DAILY 10/08/17 [History] Potassium Chloride [Klor-Con 10] 10 meq PO 0800 10/08/17 [History] Sennosides [Senna] 8.6 mg PO 0800 10/08/17 [History] Tramadol HCl [Ultram] 50 mg PO QID PRN 10/08/17 [History] hydroCHLOROthiazide [Hydrochlorothiazide] 12.5 mg PO 0800 10/08/17 [History] GuaiFENesin/Dextromethorphan [Robitussin/Dm] 10 ml PO Q6HR PRN udc 10/11/17 [Rx ] cephALEXin [Keflex] 500 mg PO BID #15 capsule 10/11/17 [Rx] 3 Allergy/AdvReac Type Severity Reaction Status Date / Time No Known Allergies Allergy Verified 04/26/18 17:03 - Constitutional Constitutional: no chills, no fever(s), no night sweats - EENT Eyes: no blurry vision, no change in vision Ears: no ear pain, no tinnitus Nose, mouth and throat: no nasal congestion, no sinus pressure, no sore throat - Cardiovascular Cardiovascular ROS IM: no chest pain, no dyspnea, no edema, no orthopnea - Respiratory Respiratory: no cough, no hemoptysis, no chest congestion, no excessive phlegm production, no change in phlegm color - Gastrointestinal Gastrointestinal: no abdominal pain, no diarrhea, no hematemesis, no hematochezia, no melena, no vomiting - Genitourinary Genitourinary ROS male: no dysuria, no flank pain, no hematuria - Musculoskeletal Musculoskeletal ROS IM: no arthralgias, no back pain - Integumentary Integumentary IM: no rash, no jaundice - Neurological Neurological ROS: abnormal speech (expressive aphasia -- chronic), convulsions, focal weakness (right sided -- chronic), no dizziness, no frequent falls, no headache(s) - Psychiatric Psychiatric: no anxiety, no depression - Endocrine Endocrine IM: no polydipsia, no polyphagia, no polyuria - Hematologic/Lymphatic Hematologic/Lymphatic: no easy bruising, no lymphadenopathy - Allergic/Immunologic Allergic/Immunologic: no wheezing, no GI upset with certain foods - Constitutional Vitals: Temp Pulse Resp BP Pulse Ox 97.7 F 79 20 101/60 91 04/26/18 16:56 04/26/18 22:12 04/26/18 22:12 04/26/18 22:12 04/26/18 22:12 General appearance: Present: cooperative, A&O X 3, pleasant, no acute distress, answers questions appropriately (by nodding yes/no with his head; comprehends everything; unable to verbally express himself) Exam: see below - Head Head exam: Present: atraumatic, normal inspection - Eye Eye exam: Present: EOMI, PERRL. Absent: scleral icterus Pupils: Present: normal accommodation - ENT ENT exam: Present: mucous membranes dry, normal exam, normal oropharynx - Neck Neck exam general surgery: Present: supple. Absent: lymphadenopathy, tenderness , thyromegaly - Respiratory Respiratory exam: Present: CTAB. Absent: chest wall tenderness, rales, respiratory distress, rhonchi, wheezes - Cardiovascular Cardiovascular exam: Present: RRR, +S1, +S2. Absent: diastolic murmur, systolic murmur - GI/Abdominal GI/Abdominal exam: Present: normal bowel sounds, soft. Absent: hepatomegaly, splenomegaly, tenderness - Extremities Exam Extremities exam: Present: warm, radial pulses palpable and symmetrical. Absent : calf tenderness, joint swelling, tenderness Additional comments: contractures RUE/RLE - Back Exam Back exam: Absent: CVA tenderness (L), CVA tenderness (R) - Neurological Exam Neurological exam: Present: alert, motor sensory deficit (right sided -- chronic ), oriented X3, speech deficit (expressive aphasia -- chronic) - Psychiatric Psychiatric exam: Present: normal affect, normal mood - Skin Skin exam: Present: dry, intact, warm Internal Med - H&P Results - Labs CBC & Chem 7: 04/26/18 17:25 04/26/18 17:25 - Diagnostic Studies Chest x-ray Status: image reviewed by me (negative) - Assessment and plan (1) Seizure Current Visit: Yes Status: Acute Assessment and plan: 1. Patient received Keppra load in ER. 2. Continue Keppra 500 mg PO BID starting tomorrow. 3. Neurology consulted through ER. 4. Will order MRI of brain to be done in the morning. 5. EEG per neurology. 6. Monitor glucose QAC and QHS for possible hypoglycemia. (2) History of CVA (cerebrovascular accident) Current Visit: Yes Status: Chronic Assessment and plan: 1. Patient is bed and wheel chair ridden. 2. He has right sided deficits and expressive aphasia. Per sister, no swallowing or aspiration issues. Patient eats regular diet. 3. PT/OT/ST consults if necessary. (3) Hypertension Current Visit: Yes Status: Chronic Assessment and plan: 1. Monitor and treat with Hydralazine PRN. 2. Resume home meds as appropriate once meds verified. Qualifiers: Hypertension type: essential hypertension Qualified Code(s): I10 - Essential (primary) hypertension (4) DVT prophylaxis Current Visit: Yes Status: Acute Assessment and plan: 1. Heparin SQ.
[2018-04-27] MEDS: *HR* Heparin 5,000 UNIT/ML VIAL SQ SCH ×3 (00:36→17:01)
[2018-04-27] MEDS: levETIRAcetam 250 MG TABLET PO SCH ×2 (06:15→17:02)
[2018-04-27] MEDS ORDERED: traMADol 50 MG TABLET PO PRN (06:29)
[2018-04-27] MEDS ORDERED: Bisacodyl 10 MG RECTAL SUPPOSITORY RC PRN (06:29)
[2018-04-27] MEDS ORDERED: Acetaminophen 325 MG TABLET PO PRN (06:29)
[2018-04-27 07:33] LABS: Basophils # 0.1 K/mcL (0.0-0.2); Basophils % 0.6 %; Eosinophils # 0.2 K/mcL (0.0-0.6); Eosinophils % 2.8 %; Hematocrit 37.9 % (37.5-50.1); Immature Granulocytes % 0.2 % (0-4); Lymphocytes # 1.5 K/mcL (0.6-4.6); Lymphocytes % 18.6 %; Mean Corpuscular HGB Conc 33.5 g/dL (31.6-35.5); Mean Corpuscular Hemoglobin 30.9 pg (28.0-33.3); Mean Corpuscular Volume 92.2 fL (83.0-100.0); Mean Platelet Volume 9.3 fL (9.4-12.4); Monocytes # 0.8 K/mcL (0.0-1.3); Monocytes % 9.3 %; Neutrophils # 5.7 K/mcL (1.6-8.9); Platelet Count 320 K/mcL (140-400); Red Blood Count 4.11 M/mcL (4.19-5.50); Red Cell Distribution Width 13.3 % (11.5-14.5); Segmented Neutrophils % 68.5 %
[2018-04-27 07:40] LABS: Hemoglobin 12.7 g/dL (12.9-16.9)
[2018-04-27 07:51] LABS: Alanine Aminotransferase 23 Units/L (7-52); Albumin 3.8 g/dL (3.5-5.7); Albumin/Globulin Ratio 1.5 (1.1-2.2); Alkaline Phosphatase 72 Units/L (34-104); Aspartate Amino Transferase 15 Units/L (13-39); BUN/Creatinine Ratio 15 (6-26); Bilirubin,Total 0.6 mg/dL (0.3-1.0); Blood Urea Nitrogen 10 mg/dL (8-23); Calcium 9.4 mg/dL (8.6-10.3); Carbon Dioxide 26 mEq/L (23-29); Chloride 100 mEq/L (98-107); Globulin 2.6 g/dL (2.4-3.5); Glucose 98 mg/dL (70-105); Osmolality,Calculated 279 (280-300); Potassium 3.9 mEq/L (3.5-5.1); Sodium 135 mEq/L (136-145); Total Protein 6.4 g/dL (6.4-8.9); eGFR For Non-African Americans > 60 (> 60)
[2018-04-27] MEDS: Lisinopril 20 MG TABLET PO SCH (08:44)
[2018-04-27] MEDS: Aspirin 81 MG TAB.CHEW PO SCH (08:44)
[2018-04-27] MEDS: amLODIPine 5 MG TABLET PO SCH (08:44)
[2018-04-27] MEDS: Sennosides 8.6 MG TABLET PO SCH (08:44)
--- NOTE | 2018-04-27 10:21 | Neurology - Consult Note ---
Date of Encounter: 04/27/18 Time of Encounter: 10:17 Assessment and Plan (1) Seizure Current Visit: Yes Status: Acute Patient with previous left MCA infarct about one year ago who developed unprovoked seizure like activity lasting few minutes in duration. No significant provoking factors noted. Patient's neurological status back to baseline. Likely partial seizure secondary to previous stroke. 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 Will obtain MRI of brain to rule out new intracranial abnormality. Routine EEG tomorrow morning. Patient has had full stroke work up one year ago at [facility], showing bilateral ICA occlusion. No further testing appears necessary. If MRI of brain returns negative patient can be discharged to [place]. Please continue medical and supportive care. Total time spend on this case is approximately 50 minutes. History of Present Illness Chief complaint: seizure activity HPI: Mr. Hicks is a 62 year old male with PMH significant for previous CVA with residual right sided paralysis and speech difficulty, HTN, hyperlipidemia, tobacco dependence who presented from half-way with witnessed seizure like activity. Patient has significant speech difficulty from previous what appears to be left MCA infarct. Unable to provide history. Sister states that he had the stroke May last year and was treated at [facility]. He has never had seizure in the past. Per medical records from [facility], he had full stroke work up there, showing BILATERAL cervical ICA occlussion AND left M1 MCA branch occlusion hyperlipidemia, kept on Aspirin and Atorvastatin. At the time of this interview, the patient is back to baseline. This is confirmed by his sister. Patient has significant aphasia but is comprehensive and following commands. Pending MRI of brain and EEG. Past Med Surg Social Fam HX - Past Medical History Medical history: COPD, CVA, hyperlipidemia, hypertension Additional medical history: recent CVA with aphasia and right side residual Psychiatric history: no psych history - Past Surgical History Surgical History: no surgical history Additional surgical history: peg tube - Social History Smoking Status: Former smoker Smokeless Tobacco Status: No Alcohol use: none Drug use: none - Family History Father Hx Family Cardiac Disorders: Yes (HTN) Hx Family Cancer: Yes (colon cancer) Hx Family Neurologic Disorders: Yes (TIA, "mini strokes") Mother Hx Family Cardiac Disorders: Yes (HTN) Hx Family Endocrine Disorder: (DM) Hx Family Medical Disorders: Yes (diabetes) Medications and Allergies Amlodipine Besylate 10 mg PO 0800 05/24/17 [History] Aspirin 81 mg PO 0800 05/24/17 [History] Acetaminophen [Tylenol] 650 mg PO TID PRN 10/08/17 [History] Atorvastatin Calcium [Lipitor] 80 mg PO HS 10/08/17 [History] Bisacodyl [Dulcolax] 10 mg RC DAILY PRN 10/08/17 [History] Carvedilol 12.5 mg PO BID 10/08/17 [History] Docusate Sodium [Dok] 100 mg PO BID 10/08/17 [History] Lisinopril [Zestril] 20 mg PO 0800 10/08/17 [History] Magnesium Hydroxide [Milk of Magnesia] 30 ml PO DAILY PRN 10/08/17 [History] Multivit-Min/FA/Lycopen/Lutein [A Thru Z Select Men 50+ Tablet] 1 tab PO DAILY 10/08/17 [History] Potassium Chloride [Klor-Con 10] 10 meq PO 0800 10/08/17 [History] Sennosides [Senna] 8.6 mg PO 0800 10/08/17 [History] Tramadol HCl [Ultram] 50 mg PO QID PRN 10/08/17 [History] hydroCHLOROthiazide [Hydrochlorothiazide] 12.5 mg PO 0800 10/08/17 [History] Fluticasone/Vilanterol [Breo Ellipta 200-25 Mcg INH] 1 each IH DAILY 04/27/18 [ History] 3 Allergy/AdvReac Type Severity Reaction Status Date / Time No Known Allergies Allergy Verified 04/26/18 17:03 All Systems: The remainder of the systems were reviewed and are negative Physical Examination - Vital Signs Vital Signs: Initial Vital Signs Temp Pulse Resp BP Pulse Ox 97.7 F 79 20 149/86 94 04/26/18 16:56 04/26/18 16:56 04/26/18 16:56 04/26/18 16:56 04/26/18 16:56 - Constitutional General appearance: comfortable - Neurologic Sensorimotor examination: other (Right sided hemiparesthesia) Motor examination - right side: 2/5: scientific technical writer, 3/5: deltoids, biceps, triceps, wrist flexion, wrist extension, 4/5: hip flexors, tibialis Anterior, quadriceps , toe extension (EHL), plantarflexion Motor examination - left side: 5/5: deltoids, biceps, triceps, wrist flexion, wrist extension, hip flexors, scientific technical writer, quadriceps, tibialis Anterior, toe extension (EHL), plantarflexion Detailed sensory examination: other (right sided hemeparesthesia) Posture: other (None) Reflexes: Biceps: 2+ (right more than left), Triceps: 2+ (Right more than left) , Brachioradialis: 2+ (Right more than left), Patella: 2+ (Right more than left) , Achilles: 2+ (Right more than left) Mental Status Examination: awake, alert, makes eye contact, follows simple commands, no spontaneous eye opening to voice or tactile stimulation, answers questions by nodding yes or no, expressive aphasia Cranial nerve examination: PERRL, EOMI, visual stevens intact, corneal reflexes brisk symmetrically, sensory to face intact, mastication intact, no facial asymmetry is present (right facial droop), no dysarthria (Aphasic), hearing is intact symmetrically, soft palate elevates bilaterally upon phonation, gag reflex intact, flexes SCM and trapezius muscles symmetrically with full power ( weakness to the right side), tongue protrudes midline (Deviated to the right side), no atrophy or facial fasiculations present Results - Laboratory Findings CBC and BMP: 04/27/18 06:41 04/27/18 06:41 Abnormal lab findings: Abnormal lab results RBC 4.11 M/mcL (4.19-5.50) L 04/27/18 06:41 Hgb 12.7 g/dL (12.9-16.9) L D 04/27/18 06:41 MPV 9.3 fL (9.4-12.4) L 04/27/18 06:41 Sodium 135 mEq/L (136-145) L 04/27/18 06:41 Creatinine 0.68 mg/dL (0.70-1.30) L 04/27/18 06:41 Calculated Osmolality 279 (280-300) L 04/27/18 06:41 Ur Specific [place] 1.007 (1.010-1.025) L 04/26/18 17:45 Urine Microscopic RBC 3-5 per hpf (0-3) H 04/26/18 17:45 Ur Squamous Epith Cells Many per lpf (None-Few) H 04/26/18 17:45 - Diagnostic Findings Additional findings: CT OF THE HEAD WITHOUT CONTRAST, 04/26/2018 7:53 pm TECHNIQUE: CT of the head was performed without the administration of intravenous contrast. Dose modulation, iterative reconstruction, and/or weight based adjustment of the mA/kV was utilized to reduce the radiation dose to as low as reasonably achievable. COMPARISON: 05/24/2017 HISTORY: ORDERING SYSTEM PROVIDED HISTORY: First time seizure Acute symptoms. Initial exam. FINDINGS: BRAIN/VENTRICLES: There is no acute intracranial hemorrhage, mass effect or midline shift. No abnormal extra-axial fluid collection. The raymundo-white differentiation is maintained without evidence of an acute infarct. There is no evidence of hydrocephalus. Patchy hypodensities in the periventricular and subcortical white matter, which are nonspecific, but may represent chronic small vessel ischemic change. Extensive encephalomalacia in the left MCA distribution. 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 ORBITS: The visualized portion of the orbits demonstrate no acute abnormality. SINUSES: The visualized paranasal sinuses and mastoid air cells demonstrate no acute abnormality. SOFT TISSUES/SKULL: No acute abnormality of the visualized skull or soft tissues. CT/CT head/brain wo con IMPRESSION: Extensive encephalomalacia in the distribution of the left MCA, most consistent with a chronic large left MCA territory infarction. Of note, this finding is essentially new in comparison to 05/24/2017. D/ / 04/26/2018 20:52:34 Guero Bailey MD / janeen Interpreting Provider: Guero Bailey MD Consult Discharge Plan - Plan Referrals: Tio Lincoln [Primary Care Provider] -
[2018-04-27] MEDS ORDERED: *HR* HYDROcodone/Acet 5/325 mg TABLET PO ONE (10:34)
--- NOTE | 2018-04-27 12:47 | Internal Med Progress Note ---
Hospitalist Progress Note - Encounter Date of Encounter: 04/27/18 Time of Encounter: 12:47 - Subjective Interval History: Sister at bedside. Had long discussion with sister an she expresses that pt has been having muscle spams since his recent sz episode. She states he is back to his at this time. Sister requesting as needed med for pt for spams. Pt denies fever, chills, CP, or SOB. Denies N/V or diarrhea. - Exam Vitals: Temp Pulse Resp BP Pulse Ox 98.0 F 88 15 143/72 93 04/27/18 10:56 04/27/18 10:56 04/27/18 10:56 04/27/18 10:56 04/27/18 10:56 Exam: General appearance: Present: cooperative, A&O X 3, pleasant, no acute distress, answers questions appropriately (by nodding yes/no with his head; comprehends everything; unable to verbally express himself) Exam: see below - Head Head exam: Present: atraumatic, normal inspection - Eye Eye exam: Present: EOMI, PERRL. Absent: scleral icterus Pupils: Present: normal accommodation - ENT ENT exam: Present: mucous membranes dry, normal exam, normal oropharynx - Neck Neck exam general surgery: Present: supple. Absent: lymphadenopathy, tenderness , thyromegaly - Respiratory Respiratory exam: Present: CTAB. Absent: chest wall tenderness, rales, respiratory distress, rhonchi, wheezes - Cardiovascular Cardiovascular exam: Present: RRR, +S1, +S2. Absent: diastolic murmur, systolic murmur - GI/Abdominal GI/Abdominal exam: Present: normal bowel sounds, soft. Absent: hepatomegaly, splenomegaly, tenderness - Extremities Exam Extremities exam: Present: warm, radial pulses palpable and symmetrical. Absent : calf tenderness, joint swelling, tenderness Additional comments: contractures RUE/RLE - Back Exam Back exam: Absent: CVA tenderness (L), CVA tenderness (R) - Neurological Exam Neurological exam: Present: alert, motor sensory deficit (right sided -- chronic ), oriented X3, speech deficit (expressive aphasia -- chronic) - Psychiatric Psychiatric exam: Present: normal affect, normal mood - Skin Skin exam: Present: dry, intact, warm - Assessment and Plan (1) Seizure Current Visit: Yes Status: Acute Assessment and Plan: 1. Patient received Keppra load in ER. 2. Continue Keppra 500 mg PO BID starting tomorrow. 3. Neurology consulted and saw the pt. EEG planned for 04/28/2018. 4. Will order MRI of brain to be done in the morning. 5. Monitor glucose QAC and QHS for possible hypoglycemia. 6. Continue Sz precaution. (2) History of CVA (cerebrovascular accident) Current Visit: Yes Status: Chronic Assessment and Plan: MRI brain ordered by admitting physician. However, pt is back to his baseline. Will continue tjo monitor. Non-contrast CT head showing CT/CT head/brain wo con IMPRESSION: Extensive encephalomalacia in the distribution of the left MCA, most consistent with a chronic large left MCA territory infarction. Of note, this finding is essentially new in comparison to 05/24/2017. (3) Hypertension Current Visit: Yes Status: Chronic Assessment and Plan: Coreg and Lisinopril. DVT Prophylaxis: Heparin - Summary of Assessment and Plan Summary of Assessment and Plan: Mr. Hicks is a 62 year old male who presents to the ER after having a seizure as witnessed by nursing staff at his ECF. He was seen and evaluated in the ER where his workup was essentially unremarkable except for some mild hyponatremia. CT scan of the head revealed encephalomalacia in the area of his old stroke from last year. He was started on Keppra and admitted to hospitalist service with a neurology consultation. - Time Spent with Patient Total time spent is greater than 50% in coordination of care (as documented) at patient's floor/unit and/or counseling patient: less than 15 minutes Internal Medicine: Result - Labs CBC & Chem 7: 04/27/18 06:41 04/27/18 06:41 Labs: Short CBC 04/27/18 Range/Units 06:41 WBC 8.3 (4.3-11.1) K/mcL Hgb 12.7 L D (12.9-16.9) g/dL Hct 37.9 (37.5-50.1) % Plt Count 320 (140-400) K/mcL Neutrophils # 5.7 (1.6-8.9) K/mcL BMP 04/27/18 06:41 Sodium 135 L Potassium 3.9 Chloride 100 Carbon Dioxide 26 BUN 10 Creatinine 0.68 L Glucose 98 Calcium 9.4 Liver Function 04/27/18 Range/Units 06:41 Total Bilirubin 0.6 (0.3-1.0) mg/dL AST 15 (13-39) Units/L ALT 23 (7-52) Units/L Alkaline Phosphatase 72 (34-104) Units/L Albumin 3.8 (3.5-5.7) g/dL - ABG Interpretation ABG results: PT/INR, D-dimer PT 10.5 Seconds (9.4-12.1) 04/26/18 17:25 Consult Discharge Plan - Plan Referrals: Tio Lincoln [Primary Care Provider] - (3) Hypertension Qualifiers: Hypertension type: essential hypertension Qualified Code(s): I10 - Essential (primary) hypertension
[2018-04-27] MEDS: Ipratropium/Albuterol Neb 3 ML IH PRN (19:41)
[2018-04-28] MEDS: *HR* Heparin 5,000 UNIT/ML VIAL SQ SCH ×2 (05:01→17:56)
[2018-04-28] MEDS: levETIRAcetam 250 MG TABLET PO SCH ×2 (05:02→17:56)
[2018-04-28] MEDS: Ipratropium/Albuterol Neb 3 ML IH PRN (05:20)
[2018-04-28] MEDS: Sennosides 8.6 MG TABLET PO SCH (08:50)
[2018-04-28] MEDS: amLODIPine 5 MG TABLET PO SCH (08:50)
[2018-04-28] MEDS: Lisinopril 20 MG TABLET PO SCH (08:51)
[2018-04-28] MEDS: Aspirin 81 MG TAB.CHEW PO SCH (08:51)
--- NOTE | 2018-04-28 12:12 | Neurology Progress Note ---
Date of Encounter: 04/28/18 Time of Encounter: 12:10 Assessment and Plan (1) Seizure Current Visit: Yes Status: Acute Patient with previous left MCA infarct about one year ago who developed unprovoked seizure like activity lasting few minutes in duration. No significant provoking factors noted. Patient's neurological status back to baseline. Likely partial seizure secondary to previous stroke. 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 MRI of brain showed no evidence of intracranial abnormality. EEG showed left hemispheric slowing consistent with history of previous MCA infarct. Continue Keppra 500mg bid and he is okay to be discharged to [place]. Subjective Principal diagnosis: seizure Interval history: Patient seen and examined. he is feeling fine and at his baseline status and reports no recurrent seizures. MRI of brain showed no acute infarct. Routine EEG showed persistent slowing to the left hemisphere this would be consistent with his previous history of large MCA infarct. Patient denies any discomforts. Objective - Constitutional Vitals: Temp Pulse Resp BP Pulse Ox 99.1 F 80 15 132/79 91 04/28/18 07:08 04/28/18 07:08 04/28/18 07:08 04/28/18 07:08 04/28/18 07:08 - Neurological Exam Sensorimotor examination: Present: other (Right sided hemiparesthesia) Motor Examination: Present: other (left hemiparalysis) Motor examination - right side: 3/5: deltoids, biceps, triceps, wrist flexion, wrist extension, stave bolt equalizer, hip flexors, tibialis Anterior, quadriceps, toe extension (EHL), plantarflexion Motor examination - left side: 5/5: deltoids, biceps, triceps, wrist flexion, wrist extension, hip flexors, stave bolt equalizer, quadriceps, tibialis Anterior, toe extension (EHL), plantarflexion Sensation intact: Present: other (right sided hemeparesthesia) Posture: Present: other (None) Reflexes: Biceps: 1+, Triceps: 1+, Brachioradialis: 1+, Patella: 1+, Achilles: 1 + Mental Status Examination: Present: awake, alert, makes eye contact, follows simple commands, no spontaneous eye opening to voice or tactile stimulation, answers questions by nodding yes or no, expressive aphasia Cranial nerve examination: Present: PERRL, EOMI, visual stevens intact, corneal reflexes brisk symmetrically, sensory to face intact, mastication intact, no facial asymmetry is present (right facial droop), no dysarthria (Aphasic), hearing is intact symmetrically, soft palate elevates bilaterally upon phonation , gag reflex intact, flexes SCM and trapezius muscles symmetrically with full power (weakness to the right side), tongue protrudes midline (Deviated to the right side), no atrophy or facial fasiculations present Results - Laboratory Findings CBC and BMP: 04/27/18 06:41 04/27/18 06:41 Abnormal lab findings: Abnormal lab results RBC 4.11 M/mcL (4.19-5.50) L 04/27/18 06:41 Hgb 12.7 g/dL (12.9-16.9) L D 04/27/18 06:41 MPV 9.3 fL (9.4-12.4) L 04/27/18 06:41 Sodium 135 mEq/L (136-145) L 04/27/18 06:41 Creatinine 0.68 mg/dL (0.70-1.30) L 04/27/18 06:41 POC Glucose 124 mg/dL (70-99) H 04/27/18 20:37 Calculated Osmolality 279 (280-300) L 04/27/18 06:41 Ur Specific [place] 1.007 (1.010-1.025) L 04/26/18 17:45 Urine Microscopic RBC 3-5 per hpf (0-3) H 04/26/18 17:45 Ur Squamous Epith Cells Many per lpf (None-Few) H 04/26/18 17:45 Consult Discharge Plan - Plan Referrals: Tio Lincoln [Primary Care Provider] -
--- NOTE | 2018-04-28 12:21 | EEG/EMG/Oth Biometrics Report ---
EEG Procedure Report Date of procedure: 04/28/18 EEG Procedure: Routine EEG Procedure Note: This EEG was acquired with standard international 10-20 electrode placement system with EKG recording. The background activity was characterized by the presence of posterior dominant alpha rhythm with best frequency up to 10 Hz. The background activity was reactive to eye openings. Sleep stages or not identified during this recording. There are no electrographic seizures identified during the tracing. There are no epileptiform discharges noted during the recording. There are however, rather persistent slowing at the left hemisphere in the form of delta and theta activity compared to the right side. Photic stimulation produced no abnormalities. Hyperventilation procedure was not performed during the study. Impression: This is an abnormal EEG due to presence of persistent slowing at the left hemisphere in the form of delta and theta activity. No electrographic seizures or epileptiform discharges noted. Clinical correlation: This EEG is consistent with focal neuronal dysfunction in the area of left hemisphere. The pattern is most commonly seen in patients with a structural lesions or less likely as he interictal expression of partial epilepsy disorder. Clinical correlation is advised. Please correlate with imaging studies.
[2018-04-28 16:09] VITALS: BP 163/93
--- NOTE | 2018-04-28 17:30 | Electrocardiograph Report ---
[address] [place], [place] [address] Test Date: 2018-04-26 Pat Name: Markel Hicks Department: EXAM[facility]1 Room: 3B13 Gender: M On Line Csr: : [id number] Requested By: [id number] Order Number: [id number] Reading MD: Sarah Valdovinos Measurements Intervals [place] Rate: 80 P: -13 WI: 157 QRS: 58 QRSD: 97 T: 25 QT: 391 QTc: 451 Interpretive Statements Sinus rhythm Electronically Signed On 04-28-2018 17:29:03 EDT by Sarah Valdovinos
--- NOTE | 2018-04-28 17:51 | Discharge Summary ---
- NOTES TO OUTPATIENT PROVIDER Notes to Outpatient Provider: PCP in 5 to 7 days Orders not resulted at time of discharge: Follow up out with neurologist in 4 to 6 weeks Date of Encounter: 04/28/18 Time of Encounter: 17:48 - Discharge Diagnosis (1) Seizure Priority: Primary Status: Acute Assessment and Plan: Pt seen by Dr. VAZQUEZ and EEG was abnormal. Pt has been started on Keppra loading dose and he is expected be 500 mg BID. Pt doing well without complaint. Dr. Vazquez discussed case with the sister and she is aware and agrees with current plan of care. EEG Impression: This is an abnormal EEG due to presence of persistent slowing at the left hemisphere in the form of delta and theta activity. No electrographic seizures or epileptiform discharges noted. (2) History of CVA (cerebrovascular accident) Priority: Secondary Status: Chronic Assessment and Plan: MRI brain ordered by admitting physician was negative for acute CVA. Pt is back to his baseline. Non-contrast CT head showing CT/CT head/brain wo con IMPRESSION: Extensive encephalomalacia in the distribution of the left MCA, most consistent with a chronic large left MCA territory infarction. Of note, this finding is essentially new in comparison to 05/24/2017. MRI brain MR/MR head/brain wo con IMPRESSION: 1. No convincing acute intracranial abnormality. No acute infarct. 2. Sequelae of a prior infarct involving the majority of the left MCA territory. 3. Loss of the normal signal void within the left internal carotid artery compatible with occlusion. 4. [id number] global parenchymal volume loss with chronic microvascular ischemic change. (3) Hypertension Priority: Secondary Status: Chronic Assessment and Plan: Coreg and Lisinopril. Qualifiers: Hypertension type: essential hypertension Qualified Code(s): I10 - Essential (primary) hypertension Hospital course: Mr. Hicks is a 62 year old male who presents to the ER after having a seizure as witnessed by nursing staff at his [facility]. He was seen and evaluated in the ER where his workup was essentially unremarkable except for some mild hyponatremia. CT scan of the head revealed encephalomalacia in the area of his old stroke from last year. He was started on Keppra and admitted to hospitalist service with a neurology consultation. Pt was given loading dose of Keppra and seen by neurologist, Dr. Vazquez. EEG was done and read as abnormal. Dr. Vazquez aware. Pt is to f/u with Dr. Vazquez in 4 to 6 weeks. Discharge discussed with: patient - Time Spent with Patient Total time spent providing and/or coordinating discharge services: Greater than 30 minutes - Discharge Medications Home Medications: Amlodipine Besylate 10 mg PO 0800 05/24/17 [History] Aspirin 81 mg PO 0800 05/24/17 [History] Acetaminophen [Tylenol] 650 mg PO TID PRN 10/08/17 [History] Atorvastatin Calcium [Lipitor] 80 mg PO HS 10/08/17 [History] Bisacodyl [Dulcolax] 10 mg RC DAILY PRN 10/08/17 [History] Carvedilol 12.5 mg PO BID 10/08/17 [History] Docusate Sodium [Dok] 100 mg PO BID 10/08/17 [History] Lisinopril [Zestril] 20 mg PO 0800 10/08/17 [History] Magnesium Hydroxide [Milk of Magnesia] 30 ml PO DAILY PRN 10/08/17 [History] Multivit-Min/FA/Lycopen/Lutein [A Thru Z Select Men 50+ Tablet] 1 tab PO DAILY 10/08/17 [History] Potassium Chloride [Klor-Con 10] 10 meq PO 0800 10/08/17 [History] Sennosides [Senna] 8.6 mg PO 0800 10/08/17 [History] Tramadol HCl [Ultram] 50 mg PO QID PRN 10/08/17 [History] hydroCHLOROthiazide [Hydrochlorothiazide] 12.5 mg PO 0800 10/08/17 [History] Fluticasone/Vilanterol [Breo Ellipta 200-25 Mcg INH] 1 each IH DAILY 04/27/18 [ History] levETIRAcetam [Keppra] 500 mg PO Q12HR tablet 04/28/18 [Rx] Allergies/Adverse Reactions: 3 Allergy/AdvReac Type Severity Reaction Status Date / Time No Known Allergies Allergy Verified 04/27/18 11:37 Date of admission: 04/26/18 22:15 Primary care physician: Tio Lincoln Consults: 04/28/18 10:26 Consult to Weigh Machine Operator [CONS] Routine Reason for SW Consult: 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 04/28/18 11:00 Consult to Interpret Exam [CONS] Routine Consulting Provider: Zhang Vazquez Consult to Interpret Exam: Interpret EEG Discharging clinician: Roya Spangler Anticipated date of discharge: 04/28/18 - Constitutional Vitals: Temp Pulse Resp BP Pulse Ox 100 F H 104 16 163/93 93 04/28/18 16:08 04/28/18 16:08 04/28/18 16:08 04/28/18 16:08 04/28/18 16:08 General appearance: Present: cooperative, A&O X 3, pleasant, no acute distress, answers questions appropriately (by nodding yes/no with his head; comprehends everything; unable to verbally express himself) Exam: General appearance: Present: cooperative, A&O X 3, pleasant, no acute distress, answers questions appropriately (by nodding yes/no with his head; comprehends everything; unable to verbally express himself) Exam: see below - Head Head exam: Present: atraumatic, normal inspection - Eye Eye exam: Present: EOMI, PERRL. Absent: scleral icterus Pupils: Present: normal accommodation - ENT ENT exam: Present: mucous membranes dry, normal exam, normal oropharynx - Neck Neck exam general surgery: Present: supple. Absent: lymphadenopathy, tenderness , thyromegaly - Respiratory Respiratory exam: Present: CTAB. Absent: chest wall tenderness, rales, respiratory distress, rhonchi, wheezes - Cardiovascular Cardiovascular exam: Present: RRR, +S1, +S2. Absent: diastolic murmur, systolic murmur - GI/Abdominal GI/Abdominal exam: Present: normal bowel sounds, soft. Absent: hepatomegaly, splenomegaly, tenderness - Extremities Exam Extremities exam: Present: warm, radial pulses palpable and symmetrical. Absent : calf tenderness, joint swelling, tenderness Additional comments: contractures RUE/RLE - Back Exam Back exam: Absent: CVA tenderness (L), CVA tenderness (R) - Neurological Exam Neurological exam: Present: alert, motor sensory deficit (right sided -- chronic ), oriented X3, speech deficit (expressive aphasia -- chronic) - Psychiatric Psychiatric exam: Present: normal affect, normal mood - Skin Skin exam: Present: dry, intact, warm - Head Head exam: Present: atraumatic, normocephalic - Eye Eye exam: Present: PERRL, conjuntiva pink, sclera anicteric Pupils: Present: PERRL - Neck Neck exam general surgery: Present: supple, trachea midline. Absent: lymphadenopathy - Respiratory Respiratory exam: Present: CTAB. Absent: accessory muscle use, rales, rhonchi, wheezes - Cardiovascular Cardiovascular exam: Present: RRR, +S1, +S2. Absent: diastolic murmur, gallop, rubs, systolic murmur - GI/Abdominal GI/Abdominal exam: Present: normal bowel sounds, soft, no peritoneal signs. Absent: distended, tenderness - Extremities Exam Extremities exam: Present: warm, radial pulses palpable and symmetrical. Absent : calf tenderness, cyanotic, pedal edema - Neurological Exam Neurological exam: Present: CN II-XII intact, oriented X3, no focal deficits. Absent: pronater drift, facial droop, speech deficit - Skin Skin exam: Present: dry, intact - Patient Status Disposition: Transfer Other Condition: Fair Overall status at discharge: patient is back to baseline - Discharge Instructions Follow Up With: Tio Lincoln [Primary Care Provider] - - Diet and Activity Activity: as per physical therapy Diet: low fat, low cholesterol
--- NOTE | 2018-04-28 18:06 | Physician Discharge Referral ---
ExtendedCare Referral Info Provider in Charge after Transfer: PCP Institutional Level of Care: Skilled - Diagnosis (1) Seizure Priority: Primary Status: Acute (2) History of CVA (cerebrovascular accident) Priority: Secondary Status: Chronic (3) Hypertension Priority: Secondary Status: Chronic Prognosis: Fair - Transfer Medications Home Medications: Amlodipine Besylate 10 mg PO 0800 05/24/17 [History] Aspirin 81 mg PO 0800 05/24/17 [History] Acetaminophen [Tylenol] 650 mg PO TID PRN 10/08/17 [History] Atorvastatin Calcium [Lipitor] 80 mg PO HS 10/08/17 [History] Bisacodyl [Dulcolax] 10 mg RC DAILY PRN 10/08/17 [History] Carvedilol 12.5 mg PO BID 10/08/17 [History] Docusate Sodium [Dok] 100 mg PO BID 10/08/17 [History] Lisinopril [Zestril] 20 mg PO 0800 10/08/17 [History] Magnesium Hydroxide [Milk of Magnesia] 30 ml PO DAILY PRN 10/08/17 [History] Multivit-Min/FA/Lycopen/Lutein [A Thru Z Select Men 50+ Tablet] 1 tab PO DAILY 10/08/17 [History] Potassium Chloride [Klor-Con 10] 10 meq PO 0800 10/08/17 [History] Sennosides [Senna] 8.6 mg PO 0800 10/08/17 [History] Tramadol HCl [Ultram] 50 mg PO QID PRN 10/08/17 [History] hydroCHLOROthiazide [Hydrochlorothiazide] 12.5 mg PO 0800 10/08/17 [History] Fluticasone/Vilanterol [Breo Ellipta 200-25 Mcg INH] 1 each IH DAILY 04/27/18 [ History] levETIRAcetam [Keppra] 500 mg PO Q12HR tablet 04/28/18 [Rx] Allergies/Adverse Reactions: 3 Allergy/AdvReac Type Severity Reaction Status Date / Time No Known Allergies Allergy Verified 04/27/18 11:37 - Respiratory Orders Smoking Cessation: Smoking cessation has been advised. For more information, call the [employer] Quit Line at 7-425-NHWY-NOW. - Advance Directives Code Status: DNR-Arrest/Don't Intubate - Rehabiliation Orders Rehab Potential: Good - Diet Orders Cardiac CERTIFICATION: I certify that the transfer of the above named patient to an Extended Care Facility is necessary for the continuing treatment of the diagnosis listed. The above information is true and accurate reflection of patient's current condition. Confidential - Redisclosure prohibited without a patient's written consent.
== END 2018-04-28 18:37 | disposition other institution (70) ==
LOC: 3BNU 16:50 → EMEROOARM 16:50 → 3BNU 23:05
PROVIDERS: ADMIT Pediatrics; ATTEND Pediatrics

== ENCOUNTER 2018-04-29 08:25 | Inpatient (IN) ==
[2018-04-29 09:21] LABS: Basophils # 0.1 K/mcL (0.0-0.2); Basophils % 0.4 %; Eosinophils # 0.3 K/mcL (0.0-0.6); Eosinophils % 2.7 %; Hematocrit 43.1 % (37.5-50.1); Immature Granulocytes % 0.3 % (0-4); Lymphocytes # 1.1 K/mcL (0.6-4.6); Lymphocytes % 8.8 %; Mean Corpuscular HGB Conc 34.6 g/dL (31.6-35.5); Mean Corpuscular Hemoglobin 32.5 pg (28.0-33.3); Mean Corpuscular Volume 93.9 fL (83.0-100.0); Monocytes # 1.2 K/mcL (0.0-1.3); Monocytes % 9.4 %; Platelet Count 299 K/mcL (140-400); Red Blood Count 4.59 M/mcL (4.19-5.50); Red Cell Distribution Width 13.7 % (11.5-14.5); Segmented Neutrophils % 78.4 %
[2018-04-29 09:22] LABS: Hemoglobin 14.9 g/dL (12.9-16.9); Neutrophils # 9.7 K/mcL (1.6-8.9)
[2018-04-29 09:44] LABS: Troponin I 0.28 ng/mL (< 0.04)
[2018-04-29 09:50] LABS: Alanine Aminotransferase 21 Units/L (7-52); Albumin/Globulin Ratio 1.3 (1.1-2.2); Alkaline Phosphatase 71 Units/L (34-104); Aspartate Amino Transferase 15 Units/L (13-39); BUN/Creatinine Ratio 20 (6-26); Bilirubin,Direct 0.1 mg/dL (0.0-0.2); Bilirubin,Indirect 0.6 mg/dL (0.0-1.2); Bilirubin,Total 0.7 mg/dL (0.3-1.0); Blood Urea Nitrogen 13 mg/dL (8-23); Calcium 9.7 mg/dL (8.6-10.3); Carbon Dioxide 24 mEq/L (23-29); Chloride 104 mEq/L (98-107); Globulin 3.1 g/dL (2.4-3.5); Glucose 116 mg/dL (70-105); Osmolality,Calculated 285 (280-300); Potassium 3.9 mEq/L (3.5-5.1); Sodium 137 mEq/L (136-145); Total Protein 7.1 g/dL (6.4-8.9); eGFR For Non-African Americans > 60 (> 60)
[2018-04-29] MEDS ORDERED: Isovue-370 500 ML INFUS..BTL IV ONE (09:55)
--- NOTE | 2018-04-29 11:02 | Emergency Department Note ---
Disposition Clinical Impression: NSTEMI (non-ST elevated myocardial infarction) Abdominal pain Qualifiers: Abdominal location: right lower quadrant Qualified Code(s): R10.31 - Right lower quadrant pain Disposition: Admitted As Inpatient Condition: Fair General Adult HPI - General Chief complaint: ED Chest Pain Stated complaint: Sick Time Seen by Provider: 04/29/18 08:25 Source: patient, EMS Mode of arrival: EMS Limitations: language barrier Nursing Notes Reviewed: Yes Vital Signs Reviewed: Yes - History of Present Illness HPI Narrative: 62-year-old male presenting with right lower quadrant abdominal pain and chest pain. Patient has history of stroke with a right sided residual weakness. Patient home only able to answer yes or no questions. Majority of the history of present illness given by senior care facility and EMS. According to EMS they were called because the patient has not been feeling well and had a fever this morning. Patient was recently discharged from the hospital. On the way to the ED the patient was complaining of chest pain. This is now resolved. Patient also stating he has right lower quadrant pain. Patient denies previous abdominal surgery. Patient denies any other concerns. Pain Scale: 10 - Related Data Home Medications Medication Instructions Recorded Confirmed Amlodipine Besylate 10 mg PO 0800 05/24/17 04/29/18 Aspirin 81 mg PO 0800 05/24/17 04/29/18 Acetaminophen [Tylenol] 650 mg PO TID PRN 10/08/17 04/29/18 Atorvastatin Calcium [Lipitor] 80 mg PO HS 10/08/17 04/29/18 Bisacodyl [Dulcolax] 10 mg RC DAILY PRN 10/08/17 04/29/18 Carvedilol 12.5 mg PO BID 10/08/17 04/29/18 Docusate Sodium [Dok] 100 mg PO BID 10/08/17 04/29/18 Lisinopril [Zestril] 20 mg PO 0800 10/08/17 04/29/18 Magnesium Hydroxide [Milk of 30 ml PO DAILY PRN 10/08/17 04/29/18 Magnesia] Multivit-Min/FA/Lycopen/Lutein [A 1 tab PO DAILY 10/08/17 04/29/18 Thru Z Select Men 50+ Tablet] Potassium Chloride [Klor-Con 10] 10 meq PO 0800 10/08/17 04/29/18 Sennosides [Senna] 8.6 mg PO 0800 10/08/17 04/29/18 Tramadol HCl [Ultram] 50 mg PO Q6H PRN 10/08/17 04/29/18 hydroCHLOROthiazide 12.5 mg PO 0800 10/08/17 04/29/18 [Hydrochlorothiazide] Fluticasone/Vilanterol [Breo 1 each IH DAILY 04/27/18 04/29/18 Ellipta 200-25 Mcg INH] Ammonium Lactate [Rosa Isela-Hydrolac] 1 appl TP DAILY 04/29/18 04/29/18 LevETIRAcetam [Keppra] 500 mg PO Q12H 04/29/18 04/29/18 Allergies Allergy/AdvReac Type Severity Reaction Status Date / Time No Known Allergies Allergy Verified 04/29/18 14:21 All systems ED: reviewed and negative except as stated. Constitutional: Reports: fever Eyes: Reports: as per HPI ENT ED: Reports: as per HPI Cardiovascular: Reports: chest pain Respiratory: Reports: as per HPI Gastrointestinal: Reports: abdominal pain Genitourinary: Reports: as per HPI Musculoskeletal: Reports: as per HPI Integumentary: Reports: as per HPI Neurological: Reports: as per HPI Psychiatric: Reports: as per HPI Endocrine: Reports: as per HPI Hematological/Lymphatic: Reports: as per HPI Allergic/Immunologic: Reports: as per HPI Past Medical History - Past Medical History Source: old records reviewed Medical history: Reports: COPD, CVA, hyperlipidemia, hypertension, seizures Surgical history: Reports: no surgical history Psychiatric history: Reports: no psych history - Social History Smoking Status: Former smoker Smokeless Tobacco Status: No Alcohol use: Reports: none Drug use: Reports: none Physical Exam - General Limitations: language barrier General appearance: alert - Head Head exam: atraumatic, normocephalic, normal inspection - Eye Eye exam: Absent: scleral icterus, conjunctival injection - ENT ENT exam: mucous membranes dry - Neck Neck exam: Present: normal inspection, full ROM. Absent: tenderness, meningismus - Chest Chest inspection: Present: normal inspection, symmetric chest wall rise. Absent : tenderness, rash - Respiratory Respiratory exam: Present: normal lung sounds bilaterally. Absent: respiratory distress, wheezes - Cardiovascular Cardiovascular exam: Present: normal rhythm, tachycardia, normal heart sounds - Abdominal Exam Abdominal exam: Present: soft, tenderness. Absent: distention, guarding, rebound, rigidity Abdominal tenderness: Present: RLQ, moderate - Extremities Exam Extremities exam: Absent: tenderness - Neurological Exam Neurological exam: Present: alert - Skin Skin exam: Present: warm, intact Course Course Narrative: 62-year-old male presenting with chest pain and right lower quadrant abdominal pain. Patient denies chest pain at this time. Physical exam shows tenderness to the right lower quadrant but no signs of surgical abdomen. Patient unable to provide any other history of present illness. We will obtain basic laboratory analysis along with a CTA of the chest and abdomen. Patient is alert and able to respond to questions with yes and no. Hemodynamically stable. Disposition most likely admission the pending results. - Reevaluation(s) Reevaluation #1: Patient CTA of the chest and abdomen benign. Appendix within normal limits. No sign of large pulmonary embolus. Troponin is elevated otherwise labs are within normal limits. Due to patient's history of chest pain and elevated troponin we will plan to start ACS dosing heparin. Patient agrees with this plan. He remains alert and hemodynamically stable. We will plan to admit him at this time for NSTEMI. I spoke with the hospitalist tree surgeon Dr. Womack who agrees to accept the patient at this time. Vital Signs Temperature 99.2 F 04/29/18 08:30 Pulse Rate 101 04/29/18 08:30 Respiratory Rate 24 04/29/18 08:30 Blood Pressure 157/93 04/29/18 08:30 O2 Sat by Pulse Oximetry 96 04/29/18 08:30 Temperature 99.2 F 04/29/18 08:38 Pulse Rate 102 04/29/18 13:33 Respiratory Rate 31 04/29/18 13:33 Blood Pressure 157/96 04/29/18 13:33 O2 Sat by Pulse Oximetry 95 04/29/18 13:33 Oxygen Delivery Oxygen Delivery Room Air Medical Decision Making - Lab Data Result diagrams: 04/29/18 09:10 04/29/18 09:10 Lab Results 04/29/18 04/29/18 04/29/18 Range/Units 09:10 09:10 09:10 WBC 12.4 H (4.3-11.1) K/mcL RBC 4.59 (4.19-5.50) M/mcL Hgb 14.9 (12.9-16.9) g/dL Hct 43.1 (37.5-50.1) % MCV 93.9 (83.0-100.0) fL MCH 32.5 (28.0-33.3) pg MCHC 34.6 (31.6-35.5) g/dL RDW 13.7 (11.5-14.5) % Plt Count 299 (140-400) K/mcL MPV 9.0 L (9.4-12.4) fL Immature Gran % 0.3 (0-4) % Seg Neutrophils % 78.4 % Lymphocytes % 8.8 % Monocytes % 9.4 % Eosinophils % 2.7 % Basophils % 0.4 % Neutrophils # 9.7 H (1.6-8.9) K/mcL Lymphocytes # 1.1 (0.6-4.6) K/mcL Monocytes # 1.2 (0.0-1.3) K/mcL Eosinophils # 0.3 (0.0-0.6) K/mcL Basophils # 0.1 (0.0-0.2) K/mcL PT (9.4-12.1) Seconds INR APTT 25.9 L (26.0-36.0) Seconds Heparin Anti-Xa, Unfract (0.30-0.70) IU/mL Sodium 137 (136-145) mEq/L Potassium 3.9 (3.5-5.1) mEq/L Chloride 104 (98-107) mEq/L Carbon Dioxide 24 (23-29) mEq/L BUN 13 (8-23) mg/dL Creatinine 0.65 L (0.70-1.30) mg/dL Est GFR ( Amer) > 60 (> 60) Est GFR (Non-Af Amer) > 60 (> 60) BUN/Creatinine Ratio 20 (6-26) Glucose 116 H (70-105) mg/dL Calculated Osmolality 285 (280-300) Lactic Acid (0.5-2.2) mmol/L Calcium 9.7 (8.6-10.3) mg/dL Magnesium 2.0 (1.6-2.6) mg/dL Total Bilirubin 0.7 (0.3-1.0) mg/dL Direct Bilirubin 0.1 (0.0-0.2) mg/dL Indirect Bilirubin 0.6 (0.0-1.2) mg/dL AST 15 (13-39) Units/L ALT 21 (7-52) Units/L Alkaline Phosphatase 71 (34-104) Units/L Troponin I 0.28 H* (< 0.04) ng/mL Serum Total Protein 7.1 (6.4-8.9) g/dL Albumin 4.0 (3.5-5.7) g/dL Globulin 3.1 (2.4-3.5) g/dL Albumin/Globulin Ratio 1.3 (1.1-2.2) 04/29/18 04/29/18 Range/Units 09:10 12:21 WBC (4.3-11.1) K/mcL RBC (4.19-5.50) M/mcL Hgb (12.9-16.9) g/dL Hct (37.5-50.1) % MCV (83.0-100.0) fL MCH (28.0-33.3) pg MCHC (31.6-35.5) g/dL RDW (11.5-14.5) % Plt Count (140-400) K/mcL MPV (9.4-12.4) fL Immature Gran % (0-4) % Seg Neutrophils % % Lymphocytes % % Monocytes % % Eosinophils % % Basophils % % Neutrophils # (1.6-8.9) K/mcL Lymphocytes # (0.6-4.6) K/mcL Monocytes # (0.0-1.3) K/mcL Eosinophils # (0.0-0.6) K/mcL Basophils # (0.0-0.2) K/mcL PT 11.1 (9.4-12.1) Seconds INR 1.0 APTT (26.0-36.0) Seconds Heparin Anti-Xa, Unfract 0.01 L (0.30-0.70) IU/mL Sodium (136-145) mEq/L Potassium (3.5-5.1) mEq/L Chloride (98-107) mEq/L Carbon Dioxide (23-29) mEq/L BUN (8-23) mg/dL Creatinine (0.70-1.30) mg/dL Est GFR ( Amer) (> 60) Est GFR (Non-Af Amer) (> 60) BUN/Creatinine Ratio (6-26) Glucose (70-105) mg/dL Calculated Osmolality (280-300) Lactic Acid 0.8 (0.5-2.2) mmol/L Calcium (8.6-10.3) mg/dL Magnesium (1.6-2.6) mg/dL Total Bilirubin (0.3-1.0) mg/dL Direct Bilirubin (0.0-0.2) mg/dL Indirect Bilirubin (0.0-1.2) mg/dL AST (13-39) Units/L ALT (7-52) Units/L Alkaline Phosphatase (34-104) Units/L Troponin I (< 0.04) ng/mL Serum Total Protein (6.4-8.9) g/dL Albumin (3.5-5.7) g/dL Globulin (2.4-3.5) g/dL Albumin/Globulin Ratio (1.1-2.2) - EKG Data EKG #1 EKG attestation: Yes I reviewed and interpreted this EKG. EKG results narrative: Sinus tachycardia. On January 2 beats for minute. ME interval 133, QRS 97, QTC 451. No sign of acute ST segment elevation or ischemia. Compared to previous EKG completed on 04/26/2018 no significant changes noted EKG #2 EKG attestation: Yes I reviewed and interpreted this EKG. EKG results narrative: Sinus rhythm. 99 beats for minute. ME interval 136, tears 97, QTC 452. No sign of acute ST segment elevation or ischemia. No changes from original EKG. Attestation Statement - Attestation Attestation: I examined this patient and my medical decision-making was reviewed with the Resident Physician. I agree with the documented findings, disposition and treatment plan as described except to the extent set forth below. Findings consistent with an nSTEMI. We will start heparinization. CT scan of the chest shows no evidence of pulmonary embolism. CT scan of the abdomen shows no acute surgical pathology. We will admit for further management of an STEMI
[2018-04-29] MEDS ORDERED: *HR* Heparin 5,000 UNIT/ML VIAL IVP PRN ×2 (12:13)
[2018-04-29] MEDS ORDERED: *HR* Heparin 5,000 UNIT/ML VIAL IVP ONE (12:13)
[2018-04-29] MEDS ORDERED: Aspirin 325 MG TABLET PO ONE (12:15)
[2018-04-29] MEDS: Heparin 25,000 UNIT/500 ML D5W 25,000 UNIT/500 ML BAG IVC SCH (12:48)
[2018-04-29 12:53] LABS: Heparin anti-factor XA UFH 0.01 IU/mL (0.30-0.70)
[2018-04-29 12:54] LABS: Prothrombin Time 11.1 Seconds (9.4-12.1)
[2018-04-29] MEDS ORDERED: methylPREDNISolone 125 MG/2 ML VIAL IVP ONE (13:33)
[2018-04-29] MEDS ORDERED: Acetaminophen 325 MG TABLET PO PRN (13:38)
[2018-04-29] MEDS ORDERED: Naloxone 0.4 MG/ML INJ IVP PRN (13:38)
[2018-04-29] MEDS ORDERED: Vancomycin 1 EACH in 0.9 % Sodium Chloride 250 ML IVPB SCH (14:00)
[2018-04-29] MEDS ORDERED: Azithromycin 500 MG in D5% in Water 250 ML IVPB SCH (14:00)
[2018-04-29 14:09] LABS: Bilirubin,Urine Negative (Negative); Blood,Urine Trace (Negative); Clarity,Urine Clear (Clear); Color,Urine Yellow (Yellow); Glucose,Urine (UA) Normal (Normal); Ketones,Urine Negative (Negative); Leukocyte Esterase,Urine Negative (Negative); Nitrite,Urine Negative (Negative); Protein,Urine Negative (Neg-Trace); Specific Gravity,Urine > 1.030 (1.010-1.025); Urobilinogen,Urine Normal (Normal)
[2018-04-29 14:12] LABS: Bacteria,Urine None Seen per hpf (None-Few); Hyaline Casts,Urine None Seen per lpf (None-Few); Squamous Epithelial Cell,Urine Few per lpf (None-Few)
--- NOTE | 2018-04-29 14:13 | Internal Med History&Physical ---
<StephanieLogan - Last Filed: 04/29/18 15:05> Date of Encounter: 04/29/18 Time of Encounter: 13:00 Internal Medicine - H&P: HPI Chief complaint: CP/SOB Admitted From: Emergency Dept Plans for Post Hospital Care: Home History of present illness: Mr. 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 Pts. sister denies hx of previous seizures. Pts. CC is CP and SOB. SOB began several days ago and CP began this morning. Pt. states CP is left sided and caused lt-sided abdominal pain. Pt. also reports RLQ abdominal pain. Denies nausea, vomiting, diaphoresis, or headache. Pt. denies home O2 use and reports fever, excess sputum production, cough, and SOB/ dyspnea. Pt. denies recent illness, nausea, vomiting, changes in vision, unusual bleeding, diarrhea, constipation, dizziness, lightheadedness, numbness, tingling, pre-syncope, or syncope. Past Med Surg Social Fam HX - Past Medical History Source: patient, old records reviewed, obtained from family Medical history: COPD, CVA, hyperlipidemia, hypertension, seizures Additional medical history: recent CVA with aphasia and right side residual Psychiatric history: no psych history - Past Surgical History Surgical History: no surgical history Additional surgical history: peg tube - Social History Smoking Status: Former smoker Packs per day: 3 PPD - Reports quitting in May 2017 Smokeless Tobacco Status: No Alcohol use: none Drug use: none Current living situation: [facility] Activity Level: Wheelchair bound Recent Out of Country Travel Within the Last 8 Weeks: No Exposure or Possible Exposure to Illness During Travel: No - Family History Father Race: Family Member Ethnicity: Non- Hx Family Cardiac Disorders: Yes (HTN) Hx Family Cancer: Yes (Colon) Hx Family Neurologic Disorders: Yes (TIA, "mini strokes") Mother Race: Family Member Ethnicity: Non- Living Status: Hx Family Cardiac Disorders: Yes (HTN) Hx Family Endocrine Disorder: Yes (DM) Internal Medicine - H&P: Meds Amlodipine Besylate 10 mg PO 0805/24/17 [History] [place]ir[place] [address]/24/17 [History] Acetaminophen [Tylenol] 650 mg PO TID PRN 10/08/17 [History] Atorvastatin Calcium [Lipitor] 80 mg PO HS 10/08/17 [History] Bisacodyl [Dulcolax] 10 mg RC DAILY PRN 10/08/17 [History] Carvedilol 12.5 mg PO BID 10/08/17 [History] Docusate Sodium [Dok] 100 mg PO BID 10/08/17 [History] Lisinopril [Zestril] 20 mg PO 0800 10/08/17 [History] Magnesium Hydroxide [Milk of Magnesia] 30 ml PO DAILY PRN 10/08/17 [History] Multivit-Min/FA/Lycopen/Lutein [A Thru Z Select Men 50+ Tablet] 1 tab PO DAILY 10/08/17 [History] Potassium Chloride [Klor-Con 10] 10 meq PO 0800 10/08/17 [History] Sennosides [Senna] 8.6 mg PO 0800 10/08/17 [History] Tramadol HCl [Ultram] 50 mg PO Q6H PRN 10/08/17 [History] hydroCHLOROthiazide [Hydrochlorothiazide] 12.5 mg PO 0800 10/08/17 [History] Fluticasone/Vilanterol [Breo Ellipta 200-25 Mcg INH] 1 each IH DAILY 04/27/18 [ History] Ammonium Lactate [Rosa Isela-Hydrolac] 1 appl TP DAILY 04/29/18 [History] LevETIRAcetam [Keppra] 500 mg PO Q12H 04/29/18 [History] 3 Allergy/AdvReac Type Severity Reaction Status Date / Time No Known Allergies Allergy Verified 04/29/18 14:21 All Systems PM: A 10-system review of systems was performed and is negative for pertinent findings except as documented above in the HPI. - Constitutional Constitutional: as per HPI, fever(s), weakness (Right-sided weakness from previous CVA), no chills, no night sweats - EENT Eyes: no change in vision, no discharge, no pain, no photophobia Ears: no ear discharge, no ear pain, no tinnitus Nose, mouth and throat: no dysphagia, no nasal discharge, no neck pain, no sore throat - Breasts Breasts: as per HPI - Cardiovascular Cardiovascular ROS IM: as per HPI, chest pain, dyspnea, dyspnea on exertion, no diaphoresis, no lightheadedness, no palpitations, no syncope - Respiratory Respiratory: as per HPI, cough, dyspnea, dyspnea on exertion, stridor, excessive phlegm production, no wheezing - Gastrointestinal Gastrointestinal: as per HPI, abdominal pain, no diarrhea, no hematemesis, no hematochezia, no melena, no nausea, no vomiting - Genitourinary Genitourinary ROS male: as per HPI, urinary hesitancy - Musculoskeletal Musculoskeletal ROS IM: no numbness, no tingling - Integumentary Integumentary IM: as per HPI, erythema (RLE), no rash, no unusual bruising - Neurological Neurological ROS: as per HPI, weakness (Right-sided weakness from CVA), no confusion, no convulsions, no focal weakness, no numbness, no tingling, no tremor(s) - Psychiatric Psychiatric: as per HPI - Endocrine Endocrine IM: as per HPI - Hematologic/Lymphatic Hematologic/Lymphatic: no easy bruising - Allergic/Immunologic Allergic/Immunologic: as per HPI - Constitutional Vitals: Temp Pulse Resp BP Pulse Ox 99.2 F 102 31 157/96 95 04/29/18 08:38 04/29/18 13:33 04/29/18 13:33 04/29/18 13:33 04/29/18 13:33 General appearance: Present: cooperative, mild distress (SOB/dyspnea), A&O X 3, pleasant, obese, answers questions appropriately Exam: Pt. examined at bedside in ED. Pt. has audible wheezes during assessment and reports cough w/copious sputum. Also reports CP that began today and has resolved. RLQ and LLQ abdominal pain still present. Pt. reports fever over the past two days. Currently meets sepsis criteria w/HR of 106 bpm and WBC of 12.4. Blood cultures x2, respiratory infection panel, sputum culture ordered. Cardiology consulted for CP and elevated troponin of 0.28. Pt. resting comfortably in bed and does not speak clearly d/t CVA in 05/2017. - Head Head exam: Present: atraumatic, normocephalic - Eye Eye exam: Present: PERRL, conjuntiva pink, sclera anicteric Pupils: Present: PERRL - ENT ENT exam: Present: normal exam - Neck Neck exam general surgery: Present: supple, trachea midline. Absent: lymphadenopathy - Respiratory Respiratory exam: Present: accessory muscle use, stridor, wheezes. Absent: rales, rhonchi - Cardiovascular Cardiovascular exam: Present: +S1, +S2, tachycardia. Absent: diastolic murmur, gallop, rubs, systolic murmur - GI/Abdominal GI/Abdominal exam: Present: normal bowel sounds, soft, no peritoneal signs. Absent: distended, tenderness - Rectal Rectal exam: Present: deferred - Additional comments: exam deferred. - Extremities Exam Extremities exam: Present: pedal edema, warm, radial pulses palpable and symmetrical. Absent: calf tenderness, cyanotic - Back Exam Back exam: Present: normal inspection - Neurological Exam Neurological exam: Present: alert, CN II-XII intact, oriented X3, no focal deficits. Absent: pronater drift, facial droop, speech deficit - Psychiatric Psychiatric exam: Present: normal affect, normal mood - Skin Skin exam: Present: dry, intact Internal Med - H&P Results - Labs CBC & Chem 7: 04/29/18 09:10 04/29/18 09:10 Labs: Short CBC 04/29/18 Range/Units 09:10 WBC 12.4 H (4.3-11.1) K/mcL Hgb 14.9 (12.9-16.9) g/dL Hct 43.1 (37.5-50.1) % Plt Count 299 (140-400) K/mcL Neutrophils # 9.7 H (1.6-8.9) K/mcL BMP 04/29/18 09:10 Sodium 137 Potassium 3.9 Chloride 104 Carbon Dioxide 24 BUN 13 Creatinine 0.65 L Glucose 116 H Calcium 9.7 Cardiac Enzymes 04/29/18 Range/Units 09:10 Troponin I 0.28 H* (< 0.04) ng/mL Liver Function 04/29/18 Range/Units 09:10 Total Bilirubin 0.7 (0.3-1.0) mg/dL Direct Bilirubin 0.1 (0.0-0.2) mg/dL AST 15 (13-39) Units/L ALT 21 (7-52) Units/L Alkaline Phosphatase 71 (34-104) Units/L Albumin 4.0 (3.5-5.7) g/dL - EKG Data EKG shows normal: sinus rhythm Rate: tachycardia - EKG Data Prior EKG available for review: yes EKG comments: 04/29/18 14:27 EKG dated 04/26/18 shows sinus rhythm/. EKG dated 04/29/18 shows sinus tachycardia. - Impressions ITS Impressions Abdomen/Pelvis CTA 04/29/18 09:55 IMPRESSION: No evidence of dissection or aneurysm. No acute intrathoracic or intra-abdominal abnormality. Prostatomegaly. D/ / Humberto Seymour MD / Humberto Seymour MD Interpreting Provider: Humberto Seymour MD Chest CTA 04/29/18 09:55 IMPRESSION: No evidence of dissection or aneurysm. No acute intrathoracic or intra-abdominal abnormality. Prostatomegaly. D/ / Humberto Seymour MD / Humberto Seymour MD Interpreting Provider: Humberto Seymour MD - Diagnostic Studies CT scan - chest Additional comments: Impressions Chest CTA 04/29/18 09:55 IMPRESSION: No evidence of dissection or aneurysm. No acute intrathoracic or intra-abdominal abnormality. Prostatomegaly. D/ / Humberto Seymour MD / Humberto Seymour MD Interpreting Provider: Humberto Seymour MD CT scan - abdomen Additional comments: Impressions Abdomen/Pelvis CTA 04/29/18 09:55 IMPRESSION: No evidence of dissection or aneurysm. No acute intrathoracic or intra-abdominal abnormality. Prostatomegaly. D/ / Humberto Seymour MD / Humberto Seymour MD Interpreting Provider: Humberto Seymour MD - Assessment and plan (1) Chest pain Current Visit: Yes Status: Acute Assessment and plan: Acute CP that began this morning. Pt. describes as left-sided w/pain in left abdomen. Denies other radiation. CP sx resolved by assessment in ED. No recent cardiac w/u. Initial troponin 0.28. Will trend. Elevation in troponin may be d/ t COPD exacerbation versus cardiac-based. EKG today shows sinus tachycardia. Echocardiogram. ASA. Lipitor 80 mg now. Continuous cardiac telemetry. Pt. placed on heparin drip d/t elevated troponin. Continue pts. HTN and HLD medications. Hydralazine IVP 10 mg Q6HR w/parameters ordered. Cardiology consult ordered and discussed w/Dr. Wiley and I appreciate the recommendations and consult as always. CTA of the chest and abdomen negative for PE, aortic dissection or aneurysm, or acute intrathoracic/intra-abdominal abnormalities. Pt. discussed w/Dr. Womack who agrees w/plan of care. Pt. is high risk for further morbidity and complications d/t current CP, sepsis criteria, SOB/dyspnea r/t COPD exacerbation, elevated troponin requiring heparin drip titration and monitoring, hx, and risk factors (previous CVA in 05/2017, hx of tobacco abuse @ 3 PPD and quitting in 05/2017, HTN, HLD, and new onset of seizures one week ago). Observation. Qualifiers: Chest pain type: other chest pain Qualified Code(s): R07.89 - Other chest pain; R07.8 - Other chest pain (2) Sepsis Current Visit: Yes Status: Acute Assessment and plan: Acute sepsis criteria w/HR of 106 and WBC of 12.4 on admission. Pt. reports fever over the past two days. Pt. resides at [facility]. Legionella and strep pneumoniae antigens ordered. Blood cultures x2 ordered. Sputum culture ordered. Respiratory infection panel ordered. Lactic acid ordered. IVPB azithromycin for bronchitis coverage. IVPB vancomycin with pharmacy dosing and Zosyn 3.375 gm every 8 hour for broad-spectrum infection coverage. Will adjust abx based on culture and panel results if warranted. Continuous cardiac telemetry. Supplemental O2 with titration and SPO2 monitoring. Qualifiers: Sepsis type: sepsis due to unspecified organism Qualified Code(s): A41.9 - Sepsis, unspecified organism (3) COPD exacerbation Current Visit: Yes Status: Acute Assessment and plan: Acute COPD exacerbation. Pt. reports SOB/dyspnea. States he smoked 3 PPD and quit in May 2017. 125 mg IVP Solu-medrol now to be followed by 80 mg Q8HR IVP. IVPB azithromycin for bronchitis coverage. Racepinephrine IH once. DuoNebs Q4HR scheduled. Supplemental O2 with titration and SPO2 monitoring. Mucinex for cough. (4) SOB (shortness of breath) Current Visit: Yes Status: Acute Assessment and plan: Acute SOB and dyspnea. Pt. denies home O2 use. Supplemental O2 w/titration and SpO2 monitoring. DuoNebs Q4HR scheduled. Respiratory infection panel. IVP Solu- medrol. (5) Abdominal pain Current Visit: Yes Status: Acute Assessment and plan: Acute abdominal pain in RLQ that began today. CT of the abdomen shows no evidence of dissection or aneurysm. No acute intrathoracic or intra-abdominal abnormality. Normal appendix. Qualifiers: Abdominal location: right lower quadrant Qualified Code(s): R10.31 - Right lower quadrant pain (6) HLD (hyperlipidemia) Current Visit: Yes Status: Chronic Assessment and plan: Hx of chronic HLD. Lipid panel in a.m. labs. Continue pts. Lipitor. Qualifiers: Hyperlipidemia type: pure hypercholesterolemia Qualified Code(s): E78.00 - Pure hypercholesterolemia, unspecified; E78.0 - Pure hypercholesterolemia (7) HTN (hypertension) Current Visit: Yes Status: Chronic Assessment and plan: Hx of chronic HTN. Monitor pt. and VS. Continue pts. Amlodipine, carvedilol, lisinopril, and hydrochlorothiazide. Qualifiers: Hypertension type: essential hypertension Qualified Code(s): I10 - Essential (primary) hypertension (8) Seizure Current Visit: Yes Status: Resolved Assessment and plan: Hx of seizure over the weekend when admitted to the hospital. Pt. denies previous seizures or hx of taking anti-seizure medications. Monitor and continue Keppra. (9) History of CVA (cerebrovascular accident) Current Visit: Yes Status: Resolved Assessment and plan: Hx of CVA in May 2017 w/residual right-sided weakness. Monitor pt. for signs of neurologic changes. PT/OT consults ordered to assess for rehabilitation needs. (10) DVT prophylaxis Current Visit: Yes Status: Acute Assessment and plan: Patient placed on heparin drip d/t CP and elevated troponin. Monitor pt. for signs of bleeding. (11) Cough Current Visit: Yes Status: Acute Assessment and plan: Acute cough w/excessive sputum production that pt. reports as new. Hx of COPD. Smoked 3 PPD and reports quitting in 05/2017. Mucinex. Sputum culture. Respiratory infection panel. - Time Spent With Patient Total time spent is greater than 50% in coordination of care (as documented) at patient's floor/unit and/or counseling patient: Greater than 35 minutes <Jerome Womack - Last Filed: 04/29/18 15:21> Date of Encounter: 04/29/18 Internal Medicine - H&P: HPI History of present illness: Mr. Hicks is a 62 year old male All Systems PM: A 10-system review of systems was performed and is negative for pertinent findings except as documented above in the HPI. - Constitutional Vitals: Temp Pulse Resp BP Pulse Ox 99.2 F 102 31 157/96 95 04/29/18 08:38 04/29/18 13:33 04/29/18 13:33 04/29/18 13:33 04/29/18 13:33 Internal Med - H&P Results - Labs CBC & Chem 7: 04/29/18 09:10 04/29/18 09:10 Labs: Urine 04/29/18 Range/Units 13:50 Urine Color Yellow (Yellow) Urine Clarity Clear (Clear) Urine pH 7.0 (5.0-8.0) pH Units Ur Specific [place] > 1.030 H (1.010-1.025) Urine Protein Negative (Neg-Trace) mg/dL Urine Glucose (UA) Normal (Normal) mg/dL - Assessment and plan (1) History of CVA (cerebrovascular accident) Current Visit: Yes Status: Resolved (2) DVT prophylaxis Current Visit: Yes Status: Acute (3) Sepsis Current Visit: Yes Status: Acute Qualifiers: Sepsis type: sepsis due to unspecified organism Qualified Code(s): A41.9 - Sepsis, unspecified organism (4) Seizure Current Visit: Yes Status: Resolved (5) Abdominal pain Current Visit: Yes Status: Acute Qualifiers: Abdominal location: right lower quadrant Qualified Code(s): R10.31 - Right lower quadrant pain (6) Chest pain Current Visit: Yes Status: Acute Qualifiers: Chest pain type: other chest pain Qualified Code(s): R07.89 - Other chest pain; R07.8 - Other chest pain (7) SOB (shortness of breath) Current Visit: Yes Status: Acute (8) COPD exacerbation Current Visit: Yes Status: Acute (9) HLD (hyperlipidemia) Current Visit: Yes Status: Chronic Qualifiers: Hyperlipidemia type: pure hypercholesterolemia Qualified Code(s): E78.00 - Pure hypercholesterolemia, unspecified; E78.0 - Pure hypercholesterolemia (10) HTN (hypertension) Current Visit: Yes Status: Chronic Qualifiers: Hypertension type: essential hypertension Qualified Code(s): I10 - Essential (primary) hypertension (11) Cough Current Visit: Yes Status: Acute - Time Spent With Patient Total time spent is greater than 50% in coordination of care (as documented) at patient's floor/unit and/or counseling patient: - Attending Attestation Patient seen and examined with nurse practitioner. Agree with assessment and plan history and physical. Patient presented with chest pain, abdominal pain, shortness of breath with worsening productive cough. Patient found to have elevated troponin and on my physical exam found to be in respiratory distress with tachypnea and possible component of stridor. Patient producing a significant amount of sputum and met sepsis criteria. Had a long discussion with patient and at bedside about my worries of his decompensation especially in light of possible stridor. Throughout the evaluation assessment and many reevaluation to the patient and are adamant that he is DNR/DNI and does not want to be intubated even if he was going to . The patient was started on empiric broad-spectrum antibiotics including vancomycin and Zosyn with atypical coverage with azithromycin due to sepsis and respiratory distress. Patient was placed on BiPAP which improved his respiratory distress tremendously he currently states that he feels much better. Patient will be given racemic epi and was given high-dose IV steroids which will be continued. Patient was started on heparin drip for elevated troponin. Unclear if this is cardiac in etiology or secondary to respiratory failure; however will trend troponins. Cardiology has been consulted. states that patient's breathing is been slowly worsening at senior care recently; despite CT not revealing any consolidation have very high suspicion for atypical pneumonia versus severe tracheobronchitis. We will continue the current treatment as listed above. Continue duo nebs. Patient at very high risk for complications and further deterioration; patient and aware of this.
[2018-04-29] MEDS ORDERED: Racepinephrine Neb 0.5 ML VIAL IH ONE (14:37)
[2018-04-29] MEDS ORDERED: MOM Conc 10 ML UD.LIQ PO PRN (15:13)
[2018-04-29] MEDS ORDERED: traMADol 50 MG TABLET PO PRN (15:13)
[2018-04-29] MEDS ORDERED: Bisacodyl 10 MG RECTAL SUPPOSITORY RC PRN (15:13)
[2018-04-29] MEDS: Azithromycin 500 MG in D5% in Water 250 ML IVPB SCH (15:13)
[2018-04-29] MEDS ORDERED: Ipratropium/Albuterol Neb 3 ML IH SCH (16:00)
[2018-04-29] MEDS: Ipratropium/Albuterol Neb 3 ML IH SCH ×3 (16:14→23:19)
[2018-04-29 16:48] LABS: ABG Base Excess 1 mEq/L (-2 to 3); ABG HCO3 25 mEq/L (21-27); ABG Oxygen Saturation 94 % (95-98); ABG PCO2 37 mmHg (35-45); ABG PH 7.45 pH Units (7.32-7.45); ABG PO2 68 mmHg (85-104); ABG TCO2 26 mEq/L (20-26); Blood Gas Modality avaps; Blood Gas PEEP 8 cm H2O; Blood Gas VT 450 cc
[2018-04-29] MEDS ORDERED: Nitroglycerin 0.4 MG TAB.SUBL SL PRN (18:03)
[2018-04-29] MEDS: methylPREDNISolone 125 MG/2 ML VIAL IVP SCH (18:06)
[2018-04-29] MEDS: levETIRAcetam 250 MG TABLET PO SCH ×2 (18:06→20:21)
[2018-04-29] MEDS: Piperacillin/Tazobactam 3.375 GM in 0.9 % Sodium Chloride Mini Bag 100 ML IVPB SCH (18:30)
[2018-04-29] MEDS ORDERED: Perflutren Lipid Microsphere 1.3 ML in 0.9 % Sodium Chloride 8.7 ML IVP ONE (22:38)
[2018-04-30] MEDS: Piperacillin/Tazobactam 3.375 GM in 0.9 % Sodium Chloride Mini Bag 100 ML IVPB SCH ×3 (01:07→16:49)
[2018-04-30] MEDS: methylPREDNISolone 125 MG/2 ML VIAL IVP SCH ×4 (01:08→19:05)
[2018-04-30 02:00] LABS: Basophils % 0.1 %; Hematocrit 40.7 % (37.5-50.1); Hemoglobin 13.5 g/dL (12.9-16.9); Immature Granulocytes % 0.6 % (0-4); Lymphocytes # 1.1 K/mcL (0.6-4.6); Lymphocytes % 8.5 %; Mean Corpuscular HGB Conc 33.2 g/dL (31.6-35.5); Mean Corpuscular Volume 93.3 fL (83.0-100.0); Mean Platelet Volume 9.1 fL (9.4-12.4); Monocytes # 0.2 K/mcL (0.0-1.3); Monocytes % 1.4 %; Neutrophils # 11.2 K/mcL (1.6-8.9); Platelet Count 297 K/mcL (140-400); Red Blood Count 4.36 M/mcL (4.19-5.50); Red Cell Distribution Width 13.4 % (11.5-14.5); Segmented Neutrophils % 89.4 %
[2018-04-30 02:10] LABS: Prothrombin Time 10.8 Seconds (9.4-12.1)
[2018-04-30 02:14] LABS: Activated Partial Thrombo Time 75.6 Seconds (26.0-36.0)
[2018-04-30 02:21] LABS: Alanine Aminotransferase 20 Units/L (7-52); Albumin 3.9 g/dL (3.5-5.7); Albumin/Globulin Ratio 1.3 (1.1-2.2); Alkaline Phosphatase 66 Units/L (34-104); Aspartate Amino Transferase 13 Units/L (13-39); BUN/Creatinine Ratio 25 (6-26); Bilirubin,Total 0.6 mg/dL (0.3-1.0); Blood Urea Nitrogen 18 mg/dL (8-23); Calcium 9.6 mg/dL (8.6-10.3); Carbon Dioxide 22 mEq/L (23-29); Chloride 103 mEq/L (98-107); Chol/HDL Ratio 3.3 (0-4.9); Cholesterol 161 mg/dL (< 200); Glucose 176 mg/dL (70-105); HDL Cholesterol 49 mg/dL (40-59); LDL Cholesterol,Calculated 91 mg/dL (0-99); Osmolality,Calculated 290 (280-300); Potassium 4.1 mEq/L (3.5-5.1); Sodium 137 mEq/L (136-145); Total Protein 6.9 g/dL (6.4-8.9); Triglycerides 103 mg/dL (< 150); eGFR For Non-African Americans > 60 (> 60)
[2018-04-30] MEDS: Ipratropium/Albuterol Neb 3 ML IH SCH ×5 (04:18→20:40)
[2018-04-30 08:11] LABS: Estimated Average Glucose 117 mg/dl; Hemoglobin A1C 5.7 %
[2018-04-30] MEDS: levETIRAcetam 250 MG TABLET PO SCH ×2 (08:36→21:23)
[2018-04-30] MEDS: Sennosides 8.6 MG TABLET PO SCH (08:36)
[2018-04-30] MEDS: Lisinopril 20 MG TABLET PO SCH (08:36)
[2018-04-30] MEDS: amLODIPine 5 MG TABLET PO SCH (08:36)
[2018-04-30] MEDS: Aspirin Enteric Coated 81 MG Tablet PO SCH (08:36)
[2018-04-30] MEDS: hydroCHLOROthiazide 25 MG TABLET PO SCH (08:37)
[2018-04-30 09:40] LABS: Adenovirus Not Detected (Not Detect); Bordetella Pertussis Not Detected (Not Detect); Chlamydophila pneumoniae Not Detected (Not Detect); Coronavirus 229E Not Detected (Not Detect); Coronavirus HKU1 Not Detected (Not Detect); Coronavirus NL63 Not Detected (Not Detect); Coronavirus OC43 Not Detected (Not Detect); Human Metapneumovirus Not Detected (Not Detect); Human Rhinovirus/Enterovirus Not Detected (Not Detect); Influenza A Subtype 2009 H1 Not Detected (Not Detect); Influenza A Untypeable Not Detected (Not Detect); Influenza B Not Detected (Not Detect); Mycoplasma pneumoniae Not Detected (Not Detect); Parainfluenza Virus 1 Not Detected (Not Detect); Parainfluenza Virus 2 Not Detected (Not Detect); Parainfluenza Virus 3 Not Detected (Not Detect); Parainfluenza Virus 4 Not Detected (Not Detect); Respiratory Syncytial Virus Not Detected (Not Detect)
[2018-04-30] MEDS: Ammonium Lactate 30 APPL/225 GM BOTTLE TP SCH (10:08)
[2018-04-30] MEDS: Heparin 25,000 UNIT/500 ML D5W 25,000 UNIT/500 ML BAG IVC SCH (11:18)
[2018-04-30] MEDS: Budesonide/Formoterol 160/4.5 1 PUFF INH IH SCH ×2 (12:06→20:40)
--- NOTE | 2018-04-30 13:05 | Cardiology Consult Note ---
Date of Encounter: 04/30/18 Time of Encounter: 13:03 Assessment and Plan (1) Troponin level elevated Current Visit: Yes Status: Acute Flat, adynamic troponin elevation in the setting of recent fevers with temperatures of greater than 100, leukocytosis, cough, and respiratory insufficiency. Patient also being treated for UTI. LVEF normal by TTE. No acute ECG changes. Findings discussed with patient and family. Although significant CAD cannot be excluded, his presentation is not consistent with ACS. We discussed options, including ongoing observation and medical therapy for his comorbidities versus cardiac catheterization. Patient is a DNR and prefers medical therapy only, especially since previous CVA and resultant debility. Your medical management regarding UTI, etc. No further inpatient cardiology testing appears to be necessary at this time. Cardiology will sign off. Please call with any questions or concerns. Discussion w patient/family: The assessment and plan as outlined above was discussed with the patient and/or family members who expressed understanding and agreement. All questions were answered. Thank you for involving us in the care of your patient. Please call with any questions. History of Present Illness Consult date: 04/30/18 Requesting physician: Jerome Womack Consult reason: Troponin elevation Chief complaint: Respiratory insufficiency History of present illness: Mr. Hicks is a 62 year old male Past Med Surg Social Fam HX - Past Medical History Medical history: COPD, CVA, hyperlipidemia, hypertension, seizures Additional medical history: recent CVA with aphasia and right side residual Psychiatric history: no psych history - Past Surgical History Surgical History: no surgical history Additional surgical history: peg tube - Social History Smoking Status: Former smoker Packs per day: 3 PPD - Reports quitting in May 2017 Smokeless Tobacco Status: No Alcohol use: none Drug use: none - Family History Father Name: Logan Hicks Race: Family Member Ethnicity: Non- Living Status: Hx Family Cardiac Disorders: Yes (HTN) Hx Family Cancer: Yes (Colon) Hx Family Neurologic Disorders: Yes (TIA, "mini strokes") Mother Name: Kavita Hicks Age: 93 Race: Family Member Ethnicity: Non- Living Status: Hx Family Cardiac Disorders: Yes (HTN) Hx Family Endocrine Disorder: Yes (DM) Hx Family Neurologic Disorders: Yes (Dementia) Medications and Allergies Amlodipine Besylate 10 mg PO 0805/24/17 [History] Aspirin 81 [place] 79905/24/17 [History] Acetaminophen [Tylenol] 650 mg PO TID PRN 10/08/17 [History] Atorvastatin Calcium [Lipitor] 80 mg PO HS 10/08/17 [History] Bisacodyl [Dulcolax] 10 mg RC DAILY PRN 10/08/17 [History] Carvedilol 12.5 mg PO BID 10/08/17 [History] Docusate Sodium [Dok] 100 mg PO BID 10/08/17 [History] Lisinopril [Zestril] 20 mg PO 0800 10/08/17 [History] Magnesium Hydroxide [Milk of Magnesia] 30 ml PO DAILY PRN 10/08/17 [History] Multivit-Min/FA/Lycopen/Lutein [A Thru Z Select Men 50+ Tablet] 1 tab PO DAILY 10/08/17 [History] Potassium Chloride [Klor-Con 10] 10 meq PO 0800 10/08/17 [History] Sennosides [Senna] 8.6 mg PO 0800 10/08/17 [History] Tramadol HCl [Ultram] 50 mg PO Q6H PRN 10/08/17 [History] hydroCHLOROthiazide [Hydrochlorothiazide] 12.5 mg PO 0800 10/08/17 [History] Fluticasone/Vilanterol [Breo Ellipta 200-25 Mcg INH] 1 each IH DAILY 04/27/18 [ History] Ammonium Lactate [Rosa Isela-Hydrolac] 1 appl TP DAILY 04/29/18 [History] LevETIRAcetam [Keppra] 500 mg PO Q12H 04/29/18 [History] 3 Allergy/AdvReac Type Severity Reaction Status Date / Time No Known Allergies Allergy Verified 04/29/18 14:21 All Systems Review: The remainder of the systems were reviewed and are negative - Constitutional Constitutional: fatigue, weakness - Cardiovascular Cardiovascular: as per HPI - Respiratory Respiratory: cough, dyspnea - Neurological Neurological: focal weakness Physical Examination Vital Signs, Last 4 Hours Temp Pulse Resp BP Pulse Ox 04/30/18 12:08 20 98 04/30/18 12:00 99.4 F 94 17 135/81 95 General: Other (Patient is nonverbal. He responds by nodding his head. Family is present. Patient appears chronically ill.) HEENT: Atraumatic, Normocephaly, Mucus Membranes Moist Neck: No JVD, Normal carotid pulses Cardiac: Other (Distant, but regular. No obvious murmurs.) Lungs: Other (Scattered rhonchi. Patient wearing CPAP.) Neuro: Alert and responsive Abdomen: Soft Skin: No rashes noted on visualized skin Musculoskeletal: No Chest Wall Tenderness Extremities: No Clubbing, No Cyanosis, No Edema Results 04/30/18 01:47 04/30/18 01:47 Lab Results 04/29/18 04/29/18 04/30/18 15:54 21:12 01:47 WBC 12.5 H Hgb 13.5 Hct 40.7 Plt Count 297 INR APTT Sodium Potassium Chloride Carbon Dioxide BUN Creatinine Glucose Calcium Magnesium Total Bilirubin AST ALT Alkaline Phosphatase Troponin I 0.19 H* 0.15 H* 04/30/18 04/30/18 01:47 01:47 WBC Hgb Hct Plt Count INR 1.0 APTT 75.6 H D Sodium 137 Potassium 4.1 Chloride 103 Carbon Dioxide 22 L BUN 18 Creatinine 0.73 Glucose 176 H Calcium 9.6 Magnesium 2.0 Total Bilirubin 0.6 AST 13 ALT 20 Alkaline Phosphatase 66 Troponin I - Imaging and Cardiology Echo: report reviewed - EKG Interpretation EKG results cardiology: personally reviewed Consult Discharge Plan - Plan Referrals: Tio Lincoln [Primary Care Provider] -
--- NOTE | 2018-04-30 13:58 | Internal Med Progress Note ---
Hospitalist Progress Note - Encounter Date of Encounter: 04/30/18 Time of Encounter: 13:30 - Subjective Interval History: Mr. 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 Pts. sister denies hx of previous seizures. Pts. CC is CP and SOB. SOB began several days ago and CP began this morning. Pt. states CP is left sided and caused lt-sided abdominal pain. Pt. also reports RLQ abdominal pain. Denies nausea, vomiting, diaphoresis, or headache. Pt. denies home O2 use and reports fever, excess sputum production, cough, and SOB/ dyspnea. Pt. denies recent illness, nausea, vomiting, changes in vision, unusual bleeding, diarrhea, constipation, dizziness, lightheadedness, numbness, tingling, pre-syncope, or syncope. 04/30: CC: SOB Patient is currently on BiPAP. States he feels much better today in terms of his breathing. He does have a cough productive of clear sputum. He has no chest pain. No nausea, vomiting, diarrhea. Currently no fevers or chills. Was seen by cardiology this morning and his troponin elevation was felt to not be indicative of non-STEMI. - Exam Vitals: Temp Pulse Resp BP Pulse Ox 99.4 F 94 20 135/81 98 04/30/18 12:00 04/30/18 12:00 04/30/18 12:08 04/30/18 12:04/30/18 12:08 Exam: Gen : Morbidly obese, AAOx3, wearing bipap but appears comfortable. Answers all Q's. Neck: Supple OP: Moist Lung: Dimin bs bilat Ht RRR Abd: Soft, obese, NT< +BS Ext: Tr edema bilat Skin Warm and dry, acp reill <2.5 sec Erthem serpiginous rash right LE and right upper chest (not new per , she states it "comes and goes" Cap reill <2.5 sec Neuro: Right hemiparesis - Assessment and Plan (1) Sepsis Current Visit: Yes Status: Acute Assessment and Plan: Acute sepsis criteria w/HR of 106 and WBC of 12.4 on admission. Pt. reports fever over the past two days. Pt. resides at [facility]. Legionella and strep pneumoniae antigens ordered. Blood cultures x2 ordered. Sputum culture ordered. Respiratory infection panel ordered. Lactic acid ordered. IVPB azithromycin for bronchitis coverage. IVPB vancomycin with pharmacy dosing and Zosyn 3.375 gm every 8 hour for broad-spectrum infection coverage. Will adjust abx based on culture and panel results if warranted. Continuous cardiac telemetry. Supplemental O2 with titration and SPO2 monitoring. 04/30: Continue current abx, Day #2 Zosyn/Azithro/Vanco Antic de-escalate tomorrow suspect pulm source of infection [employer] eval for assessment of aspiration risk (2) History of CVA (cerebrovascular accident) Current Visit: Yes Status: Resolved Assessment and Plan: Hx of CVA in May 2017 w/residual right-sided weakness. Monitor pt. for signs of neurologic changes. PT/OT consults ordered to assess for rehabilitation needs. Denies aspiration hx or any swallow difficulties (3) DVT prophylaxis Current Visit: Yes Status: Acute Assessment and Plan: Patient placed on heparin drip d/t CP and elevated troponin. Monitor pt. for signs of bleeding. 04/30: dc hep gtt, add Lovenox 40 mg SubQ daily (4) Seizure Current Visit: Yes Status: Resolved Assessment and Plan: Hx of seizure over the weekend when admitted to the hospital. Pt. denies previous seizures or hx of taking anti-seizure medications. Monitor and continue Keppra. (5) Abdominal pain Current Visit: Yes Status: Acute Assessment and Plan: Acute abdominal pain in RLQ that began today. CT of the abdomen shows no evidence of dissection or aneurysm. No acute intrathoracic or intra-abdominal abnormality. Normal appendix. 04/30: Resolved, monitor (6) Chest pain Current Visit: Yes Status: Acute Assessment and Plan: Acute CP that began this morning. Pt. describes as left-sided w/pain in left abdomen. Denies other radiation. CP sx resolved by assessment in ED. No recent cardiac w/u. Initial troponin 0.28. Will trend. Elevation in troponin may be d/ t COPD exacerbation versus cardiac-based. EKG today shows sinus tachycardia. Echocardiogram. ASA. Lipitor 80 mg now. Continuous cardiac telemetry. Pt. placed on heparin drip d/t elevated troponin. Continue pts. HTN and HLD medications. Hydralazine IVP 10 mg Q6HR w/parameters ordered. Cardiology consult ordered and discussed w/Dr. Wiley and I appreciate the recommendations and consult as always. CTA of the chest and abdomen negative for PE, aortic dissection or aneurysm, or acute intrathoracic/intra-abdominal abnormalities. Pt. discussed w/Dr. Womack who agrees w/plan of care. Pt. is high risk for further morbidity and complications d/t current CP, sepsis criteria, SOB/dyspnea r/t COPD exacerbation, elevated troponin requiring heparin drip titration and monitoring, hx, and risk factors (previous CVA in 05/2017, hx of tobacco abuse @ 3 PPD and quitting in 05/2017, HTN, HLD, and new onset of seizures one week ago). Observation. 04/30: Cardiology input appreciated Doubt ACS, continue med management (7) SOB (shortness of breath) Current Visit: Yes Status: Acute Assessment and Plan: Acute SOB and dyspnea. Pt. denies home O2 use. Supplemental O2 w/titration and SpO2 monitoring. DuoNebs Q4HR scheduled. Respiratory infection panel. IVP Solu- medrol. 04/30: Cotninue steroids and BD's for Acute COPD exac. Add mucolytic (8) COPD exacerbation Current Visit: Yes Status: Acute Assessment and Plan: Acute COPD exacerbation. Pt. reports SOB/dyspnea. States he smoked 3 PPD and quit in May 2017. 125 mg IVP Solu-medrol now to be followed by 80 mg Q8HR IVP. IVPB azithromycin for bronchitis coverage. Racepinephrine IH once. DuoNebs Q4HR scheduled. Supplemental O2 with titration and SPO2 monitoring. Mucinex for cough. See above (9) HLD (hyperlipidemia) Current Visit: Yes Status: Chronic (10) HTN (hypertension) Current Visit: Yes Status: Chronic Assessment and Plan: Hx of chronic HTN. Monitor pt. and VS. Continue pts. Amlodipine, carvedilol, lisinopril, and hydrochlorothiazide. 04/30: BP controlled (11) Cough Current Visit: Yes Status: Acute - Time Spent with Patient Total time spent is greater than 50% in coordination of care (as documented) at patient's floor/unit and/or counseling patient: Internal Medicine: Result - Labs CBC & Chem 7: 04/30/18 01:47 04/30/18 01:47 Labs: Short CBC 04/30/18 Range/Units 01:47 WBC 12.5 H (4.3-11.1) K/mcL Hgb 13.5 (12.9-16.9) g/dL Hct 40.7 (37.5-50.1) % Plt Count 297 (140-400) K/mcL Neutrophils # 11.2 H (1.6-8.9) K/mcL BMP 04/30/18 01:47 Sodium 137 Potassium 4.1 Chloride 103 Carbon Dioxide 22 L BUN 18 Creatinine 0.73 Glucose 176 H Calcium 9.6 Cardiac Enzymes 04/29/18 04/29/18 Range/Units 15:54 21:12 Troponin I 0.19 H* 0.15 H* (< 0.04) ng/mL Liver Function 04/30/18 Range/Units 01:47 Total Bilirubin 0.6 (0.3-1.0) mg/dL AST 13 (13-39) Units/L ALT 20 (7-52) Units/L Alkaline Phosphatase 66 (34-104) Units/L Albumin 3.9 (3.5-5.7) g/dL Urine 04/29/18 Range/Units 13:50 Urine Color Yellow (Yellow) Urine Clarity Clear (Clear) Urine pH 7.0 (5.0-8.0) pH Units Ur Specific [place] > 1.030 H (1.010-1.025) Urine Protein Negative (Neg-Trace) mg/dL Urine Glucose (UA) Normal (Normal) mg/dL - ABG Interpretation ABG results: ABG ABG pH 7.45 pH Units (7.32-7.45) 04/29/18 16:43 ABG pCO2 37 mmHg (35-45) 04/29/18 16:43 ABG pO2 68 mmHg (85-104) L 04/29/18 16:43 ABG O2 Saturation 94 % (95-98) L 04/29/18 16:43 PT/INR, D-dimer PT 10.8 Seconds (9.4-12.1) 04/30/18 01:47 - Impressions Impressions Echocardiogram 04/29/18 13:37 Impressions: Technically sub-optimal due to poor echocardiographic windows. No parasternal window. LVEF 65%. Grossly normal LV chamber size and function. RV Not well seen, grossly normal RV size and function. No significant valvular dysfunction. Unable to estimate pulmonary artery pressure due to lack of TR jet. Left Ventricular Wall Motion: Rest Echo Findings All wall segments showed normal motion. Findings: Study Quality * Technically sub-optimal due to poor echocardiographic windows. No parasternal window. ECG Findings * Normal sinus rhythm. Left Ventricle * LVEF 65%. * Grossly normal LV chamber size and function. * Normal left ventricular diastolic function. Right Ventricle * Not well seen, grossly normal right ventricular structure and function. Left Atrium * Normal left atrial size. Right Atrium * Right atrium is not well visualized. Interatrial Septum * Interatrial septum not well evaluated. Aortic Valve * No aortic regurgitation. * No aortic stenosis. * Aortic valve not well visualized. Mitral Valve * Mitral valve not well visualized. * No mitral regurgitation. Tricuspid Valve * Tricuspid valve not well visualized. * No tricuspid regurgitation. * Unable to estimate RVSP due to lack of TR jet. * Estimated RA pressure is 10 mmHg. Pulmonic Valve * Pulmonic valve not well visualized. Aorta * Not well visualized. Pericardium * The pericardium appears normal. IVC * The IVC is not dilated. * < 50% respiratory change. * on BiPAP Consult Discharge Plan - Plan Referrals: Tio Lincoln [Primary Care Provider] - (1) Sepsis Qualifiers: Sepsis type: sepsis due to unspecified organism Qualified Code(s): A41.9 - Sepsis, unspecified organism (5) Abdominal pain Qualifiers: Abdominal location: right lower quadrant Qualified Code(s): R10.31 - Right lower quadrant pain (6) Chest pain Qualifiers: Chest pain type: other chest pain Qualified Code(s): R07.89 - Other chest pain; R07.8 - Other chest pain (9) HLD (hyperlipidemia) Qualifiers: Hyperlipidemia type: pure hypercholesterolemia Qualified Code(s): E78.00 - Pure hypercholesterolemia, unspecified; E78.0 - Pure hypercholesterolemia (10) HTN (hypertension) Qualifiers: Hypertension type: essential hypertension Qualified Code(s): I10 - Essential (primary) hypertension
[2018-04-30] MEDS: Azithromycin 500 MG in D5% in Water 250 ML IVPB SCH (15:26)
[2018-04-30] MEDS: *HR* Enoxaparin 40 MG/0.4 ML SYRINGE SQ SCH (19:14)
[2018-05-01] MEDS: Ipratropium/Albuterol Neb 3 ML IH SCH ×7 (00:21→23:09)
[2018-05-01 02:16] LABS: Basophils % 0.1 %; Eosinophils % 0.1 %; Hematocrit 36.2 % (37.5-50.1); Hemoglobin 12.4 g/dL (12.9-16.9); Immature Granulocytes % 0.6 % (0-4); Lymphocytes % 6.9 %; Mean Corpuscular HGB Conc 34.3 g/dL (31.6-35.5); Mean Corpuscular Hemoglobin 31.7 pg (28.0-33.3); Mean Corpuscular Volume 92.6 fL (83.0-100.0); Mean Platelet Volume 9.7 fL (9.4-12.4); Monocytes # 0.6 K/mcL (0.0-1.3); Monocytes % 4.4 %; Neutrophils # 12.5 K/mcL (1.6-8.9); Platelet Count 299 K/mcL (140-400); Red Blood Count 3.91 M/mcL (4.19-5.50); Red Cell Distribution Width 13.3 % (11.5-14.5); Segmented Neutrophils % 87.9 %
[2018-05-01 03:13] LABS: Alanine Aminotransferase 21 Units/L (7-52); Albumin 3.6 g/dL (3.5-5.7); Albumin/Globulin Ratio 1.3 (1.1-2.2); Alkaline Phosphatase 56 Units/L (34-104); Aspartate Amino Transferase 32 Units/L (13-39); BUN/Creatinine Ratio 28 (6-26); Bilirubin,Total 0.4 mg/dL (0.3-1.0); Blood Urea Nitrogen 19 mg/dL (8-23); Calcium 9.1 mg/dL (8.6-10.3); Carbon Dioxide 21 mEq/L (23-29); Chloride 104 mEq/L (98-107); Globulin 2.8 g/dL (2.4-3.5); Glucose 158 mg/dL (70-105); Osmolality,Calculated 288 (280-300); Potassium 3.9 mEq/L (3.5-5.1); Sodium 136 mEq/L (136-145); Total Protein 6.4 g/dL (6.4-8.9); eGFR For Non-African Americans > 60 (> 60)
[2018-05-01] MEDS: methylPREDNISolone 125 MG/2 ML VIAL IVP SCH ×5 (05:59→18:47)
[2018-05-01 06:51] LABS: Acinetobacter baumannii by PCR Not Detected (Not Detect); Candida albicans by PCR Not Detected (Not Detect); Candida glabrata by PCR Not Detected (Not Detect); Candida krusei by PCR Not Detected (Not Detect); Candida parapsilosis by PCR Not Detected (Not Detect); Candida tropicalis by PCR Not Detected (Not Detect); Enterobacter cloacae Cmplx PCR Not Detected (Not Detect); Enterobacteriaceae by PCR Not Detected (Not Detect); Enterococcus by PCR Not Detected (Not Detect); Escherichia coli by PCR Not Detected (Not Detect); Klebsiella oxytoca by PCR Not Detected (Not Detect); Klebsiella pneumoniae by PCR Not Detected (Not Detect); Proteus by PCR Not Detected (Not Detect); Pseudomonas aeruginosa by PCR Not Detected (Not Detect); Serratia marcescens by PCR Not Detected (Not Detect); Staphylococcus aureus by PCR Not Detected (Not Detect); Staphylococcus by PCR Not Detected (Not Detect); Streptococcus agalactiae(B)PCR Not Detected (Not Detect); Streptococcus by PCR Not Detected (Not Detect); Streptococcus pneumoniae PCR Not Detected (Not Detect); Streptococcus pyogenes (A) PCR Not Detected (Not Detect)
[2018-05-01] MEDS: Budesonide/Formoterol 160/4.5 1 PUFF INH IH SCH ×3 (07:34→19:45)
[2018-05-01] MEDS: Sennosides 8.6 MG TABLET PO SCH (08:15)
[2018-05-01] MEDS: Lisinopril 20 MG TABLET PO SCH (08:15)
[2018-05-01] MEDS: Aspirin Enteric Coated 81 MG Tablet PO SCH (08:15)
[2018-05-01] MEDS: amLODIPine 5 MG TABLET PO SCH (08:15)
[2018-05-01] MEDS: levETIRAcetam 250 MG TABLET PO SCH ×2 (08:15→22:15)
[2018-05-01] MEDS: hydroCHLOROthiazide 25 MG TABLET PO SCH (08:16)
[2018-05-01] MEDS: Piperacillin/Tazobactam 3.375 GM in 0.9 % Sodium Chloride Mini Bag 100 ML IVPB SCH ×3 (08:17→18:49)
[2018-05-01] MEDS ORDERED: Aminoglycoside Consult 1 EACH MC ONE (09:17)
--- NOTE | 2018-05-01 10:17 | Internal Med Progress Note ---
<Tanisha Dunbar - Last Filed: 05/01/18 13:30> Hospitalist Progress Note - Encounter Date of Encounter: 05/01/18 Time of Encounter: 10:00 - Subjective Interval History: Patient seen and examined. No acute events overnight. Patient is sitting comfortably in bed. Patient indicates that he is feeling better. Denies any difficulty breathing and indicates coughing is improved. Reports sore throat when coughing. Patient denies chest pain. Denies abdominal pain. Denies fever, chills. Denies congestion. Denies headache. Denies swelling. Denies nausea/ vomiting, bowel changes. Denies urinary symptoms. - Exam Vitals: Temp Pulse Resp BP Pulse Ox 98.3 F 64 24 144/74 95 05/01/18 07:21 05/01/18 07:21 05/01/18 07:34 05/01/18 07:21 05/01/18 07:34 Exam: General: Alert and oriented. No acute distress. Well-developed. Head: atraumatic, normocephalic. Eye: pupils equal, round, and reactive. Sclera anicteric. EOMI. ENT: Moist mucus membrane. Normal oropharynx. Neck: supple, trachea midline. Lungs: CTAB. No rhonchi, rales, or wheezes. No respiratory distress. No accessory muscle use. Cardiovascular: Normal S1 & S2. No rubs or gallops. No JVD. Pulse regular. Abdomen: Soft. Normal bowel sounds. Nondistended, no rigidity. Nontender. Extremities: No deformity, no edema or tenderness, no joint swelling or clubbing. Skin: warm, dry, and intact. No rash or lesions. Neurological: Right sided weakness. Aphasia. Normal comprehension. - Assessment and Plan (1) Sepsis Current Visit: Yes Status: Acute Assessment and Plan: On admission, met 3 SIRS criteria with tachycardia, tachypnea, and leukocytosis. Source: suspect aspiration pneumonia. Lactic acid normal. One out of 2 of blood cultures drawn 04/29 show gram positive cocci-clusters. Other shows NGTD. Likely contaminant. CTA chest was negative. CTA abdomen was negative. (2) COPD exacerbation Current Visit: Yes Status: Acute Assessment and Plan: Patient presented with SOB/dyspnea. History of smoking 3 PPD, quit May 2017. Improved. Continue solu-medrol 80 mg Q8HR IVP. Continue IVPB azithromycin for bronchitis coverage. Continue DuoNebs Q4HR scheduled. Continue Mucinex for cough. Supplemental O2 with titration and SPO2 monitoring. (3) Chest pain Current Visit: Yes Status: Resolved Assessment and Plan: At admission, elevated troponin 0.28. Trended down. No acute EKG changes. TTE showed normal LVEF. CTA chest was negative. Chest pain resolved. Cardiology consulted and determined not ACS. Continue to monitor. (4) Abdominal pain Current Visit: Yes Status: Resolved Assessment and Plan: Patient complained of RLQ abdominal pain. CTA abdomen was negative. Resolved. (5) History of CVA (cerebrovascular accident) Current Visit: Yes Status: Resolved Assessment and Plan: Hx of CVA in May 2017 w/residual right-sided weakness and aphasia. Monitor pt. for signs of neurologic changes. PT/OT consults ordered to assess for rehabilitation needs. (6) Seizure Current Visit: Yes Status: Resolved Assessment and Plan: Hx of seizure over the weekend when admitted to the hospital. Pt. denies previous seizures or hx of taking anti-seizure medications. Monitor and continue Keppra. (7) HTN (hypertension) Current Visit: Yes Status: Chronic Assessment and Plan: Hx of chronic HTN. Monitor patient and vital signs. Continue home meds: amlodipine, carvedilol, lisinopril, and hydrochlorothiazide. (8) HLD (hyperlipidemia) Current Visit: Yes Status: Chronic Assessment and Plan: Hx of chronic HLD. Continue Lipitor. (9) DVT prophylaxis Current Visit: Yes Status: Acute Assessment and Plan: Lovenox. (10) Aspiration pneumonia Current Visit: Yes Status: Suspected Assessment and Plan: Suspect aspiration pneumonia. Causative organism: unknown, possible gram positive cocci. Patient presented with cough, SOB, fever. Resides in halfway. History of CVA with aphasia and right-sided weakness. Swallow study failed modified diet. Legionella and strep pneumoniae antigens are negative. Respiratory viral panel is negative. Respiratory bacterial panel is negative. Sputum culture shows many gram positive cocci. CTA chest showed no focal consolidation. Check nasal MRSA screen. Continue azithromycin, vancomycin, zosyn (day 3). Will de-escalate antibiotics pending MRSA screen. Monitor renal function and for drug toxicity and dose-adjust antibiotics. - Time Spent with Patient Total time spent is greater than 50% in coordination of care (as documented) at patient's floor/unit and/or counseling patient: Internal Medicine: Result - Labs CBC & Chem 7: 05/01/18 02:05 05/01/18 02:05 Labs: Short CBC 05/01/18 Range/Units 02:05 WBC 14.2 H (4.3-11.1) K/mcL Hgb 12.4 L (12.9-16.9) g/dL Hct 36.2 L (37.5-50.1) % Plt Count 299 (140-400) K/mcL Neutrophils # 12.5 H (1.6-8.9) K/mcL BMP 05/01/18 02:05 Sodium 136 Potassium 3.9 Chloride 104 Carbon Dioxide 21 L BUN 19 Creatinine 0.69 L Glucose 158 H Calcium 9.1 Liver Function 05/01/18 Range/Units 02:05 Total Bilirubin 0.4 (0.3-1.0) mg/dL AST 32 (13-39) Units/L ALT 21 (7-52) Units/L Alkaline Phosphatase 56 (34-104) Units/L Albumin 3.6 (3.5-5.7) g/dL - ABG Interpretation ABG results: ABG ABG pH 7.45 pH Units (7.32-7.45) 04/29/18 16:43 ABG pCO2 37 mmHg (35-45) 04/29/18 16:43 ABG pO2 68 mmHg (85-104) L 04/29/18 16:43 ABG O2 Saturation 94 % (95-98) L 04/29/18 16:43 PT/INR, D-dimer PT 10.8 Seconds (9.4-12.1) 04/30/18 01:47 Consult Discharge Plan - Plan Referrals: Tio Lincoln [Primary Care Provider] - <Bryon Can - Last Filed: 05/01/18 14:26> Hospitalist Progress Note - Encounter Date of Encounter: 05/01/18 - Exam Vitals: Temp Pulse Resp BP Pulse Ox 97.8 F 54 16 134/74 97 05/01/18 11:39 05/01/18 11:39 05/01/18 11:39 05/01/18 11:39 05/01/18 11:39 - Assessment and Plan (1) History of CVA (cerebrovascular accident) Current Visit: Yes Status: Resolved (2) DVT prophylaxis Current Visit: Yes Status: Acute (3) Sepsis Current Visit: Yes Status: Acute (4) Seizure Current Visit: Yes Status: Resolved (5) Abdominal pain Current Visit: Yes Status: Resolved (6) Chest pain Current Visit: Yes Status: Resolved (7) COPD exacerbation Current Visit: Yes Status: Acute (8) HLD (hyperlipidemia) Current Visit: Yes Status: Chronic (9) HTN (hypertension) Current Visit: Yes Status: Chronic (10) Aspiration pneumonia Current Visit: Yes Status: Suspected - Time Spent with Patient Total time spent is greater than 50% in coordination of care (as documented) at patient's floor/unit and/or counseling patient: Internal Medicine: Result - Labs CBC & Chem 7: 05/01/18 02:05 05/01/18 02:05 Labs: Short CBC 05/01/18 Range/Units 02:05 WBC 14.2 H (4.3-11.1) K/mcL Hgb 12.4 L (12.9-16.9) g/dL Hct 36.2 L (37.5-50.1) % Plt Count 299 (140-400) K/mcL Neutrophils # 12.5 H (1.6-8.9) K/mcL BMP 05/01/18 02:05 Sodium 136 Potassium 3.9 Chloride 104 Carbon Dioxide 21 L BUN 19 Creatinine 0.69 L Glucose 158 H Calcium 9.1 Liver Function 05/01/18 Range/Units 02:05 Total Bilirubin 0.4 (0.3-1.0) mg/dL AST 32 (13-39) Units/L ALT 21 (7-52) Units/L Alkaline Phosphatase 56 (34-104) Units/L Albumin 3.6 (3.5-5.7) g/dL - ABG Interpretation ABG results: ABG ABG pH 7.45 pH Units (7.32-7.45) 04/29/18 16:43 ABG pCO2 37 mmHg (35-45) 04/29/18 16:43 ABG pO2 68 mmHg (85-104) L 04/29/18 16:43 ABG O2 Saturation 94 % (95-98) L 04/29/18 16:43 PT/INR, D-dimer PT 10.8 Seconds (9.4-12.1) 04/30/18 01:47 - Attending Attestation I performed an independent interview and exam of this pt. I agree wiht the findings, assessment and plan of Dr. Dunbar, internal medicine event marketing intern. Patient is improved overnight. He continues on BiPAP but otherwise is awake alert and oriented and conversant. Suspected has aspiration pneumonia. He is now on a modified diet. Will continue current antibiotic regimen for now he is doing 3 of Zosyn, vancomycin, azithromycin. We will check a MRSA screen. He also has gram-positive cocci in his sputum, await ID and sens. All else as outlined above. He continues on steroids for COPD exacerbation. Gen: NAD, AAOx3 Lung - dimin bs bases Ht rrr Abd-soft +bs, nt Ext tr edema neuro right hemiparesis (not new) <Tanisha Dunbar - Last Filed: 05/01/18 13:30> (1) Sepsis Qualifiers: Sepsis type: sepsis due to unspecified organism Qualified Code(s): A41.9 - Sepsis, unspecified organism (3) Chest pain Qualifiers: Chest pain type: other chest pain Qualified Code(s): R07.89 - Other chest pain; R07.8 - Other chest pain (4) Abdominal pain Qualifiers: Abdominal location: right lower quadrant Qualified Code(s): R10.31 - Right lower quadrant pain (7) HTN (hypertension) Qualifiers: Hypertension type: essential hypertension Qualified Code(s): I10 - Essential (primary) hypertension (8) HLD (hyperlipidemia) Qualifiers: Hyperlipidemia type: pure hypercholesterolemia Qualified Code(s): E78.00 - Pure hypercholesterolemia, unspecified; E78.0 - Pure hypercholesterolemia <Bryon Can - Last Filed: 05/01/18 14:26> (3) Sepsis Qualifiers: Sepsis type: sepsis due to unspecified organism Qualified Code(s): A41.9 - Sepsis, unspecified organism (5) Abdominal pain Qualifiers: Abdominal location: right lower quadrant Qualified Code(s): R10.31 - Right lower quadrant pain (6) Chest pain Qualifiers: Chest pain type: other chest pain Qualified Code(s): R07.89 - Other chest pain; R07.8 - Other chest pain (8) HLD (hyperlipidemia) Qualifiers: Hyperlipidemia type: pure hypercholesterolemia Qualified Code(s): E78.00 - Pure hypercholesterolemia, unspecified; E78.0 - Pure hypercholesterolemia (9) HTN (hypertension) Qualifiers: Hypertension type: essential hypertension Qualified Code(s): I10 - Essential (primary) hypertension
[2018-05-01] MEDS: Azithromycin 500 MG in D5% in Water 250 ML IVPB SCH (15:11)
[2018-05-01] MEDS: *HR* Enoxaparin 40 MG/0.4 ML SYRINGE SQ SCH (18:48)
[2018-05-02] MEDS: methylPREDNISolone 125 MG/2 ML VIAL IVP SCH ×2 (00:08→05:14)
[2018-05-02] MEDS: Piperacillin/Tazobactam 3.375 GM in 0.9 % Sodium Chloride Mini Bag 100 ML IVPB SCH ×2 (00:09→10:02)
--- NOTE | 2018-05-02 00:29 | Electrocardiograph Report ---
[facility] Test Date: 2018-04-29 Pat Name: Markel Hicks Department: EXAM17 Room: 2NE29 Gender: M Tax Investigator: : 1955 Requested By: Batsheva Quintero Order Number: [id number] Reading MD: Genevieve Brown Measurements Intervals [place] Rate: 102 P: 26 PA: 133 QRS: 60 QRSD: 97 T: 64 QT: 346 QTc: 451 Interpretive Statements Sinus tachycardia Electronically Signed On 05-02-2018 0:27:57 EDT by Genevieve Brown
--- NOTE | 2018-05-02 00:32 | Electrocardiograph Report ---
[facility] Test Date: 2018-04-29 Pat Name: Markel Hicks Department: EXAM17 Room: 2NE29 Gender: M Ash Handler: : 1955 Requested By: Javi Rocha Order Number: [id number] Reading MD: Genevieve Brown Measurements Intervals [place] Rate: 99 P: 20 FL: 136 QRS: 58 QRSD: 97 T: 62 QT: 352 QTc: 452 Interpretive Statements Sinus rhythm Electronically Signed On 05-02-2018 0:30:27 EDT by Genevieve Brown
[2018-05-02] MEDS: Ipratropium/Albuterol Neb 3 ML IH SCH ×5 (03:38→20:44)
[2018-05-02 05:19] LABS: Alanine Aminotransferase 18 Units/L (7-52); Albumin 3.3 g/dL (3.5-5.7); Albumin/Globulin Ratio 1.3 (1.1-2.2); Alkaline Phosphatase 48 Units/L (34-104); Aspartate Amino Transferase 15 Units/L (13-39); BUN/Creatinine Ratio 29 (6-26); Bilirubin,Total 0.4 mg/dL (0.3-1.0); Blood Urea Nitrogen 19 mg/dL (8-23); Calcium 8.8 mg/dL (8.6-10.3); Carbon Dioxide 25 mEq/L (23-29); Chloride 105 mEq/L (98-107); Globulin 2.6 g/dL (2.4-3.5); Glucose 158 mg/dL (70-105); Osmolality,Calculated 292 (280-300); Potassium 3.3 mEq/L (3.5-5.1); Sodium 138 mEq/L (136-145); Total Protein 5.9 g/dL (6.4-8.9); eGFR For Non-African Americans > 60 (> 60)
[2018-05-02 05:37] LABS: Basophils % 0.1 %; Hematocrit 33.9 % (37.5-50.1); Hemoglobin 11.3 g/dL (12.9-16.9); Immature Granulocytes % 0.6 % (0-4); Lymphocytes # 0.7 K/mcL (0.6-4.6); Lymphocytes % 6.8 %; Mean Corpuscular HGB Conc 33.3 g/dL (31.6-35.5); Mean Corpuscular Hemoglobin 31.3 pg (28.0-33.3); Mean Corpuscular Volume 93.9 fL (83.0-100.0); Mean Platelet Volume 9.3 fL (9.4-12.4); Monocytes # 0.5 K/mcL (0.0-1.3); Monocytes % 4.5 %; Neutrophils # 9.1 K/mcL (1.6-8.9); Platelet Count 298 K/mcL (140-400); Red Blood Count 3.61 M/mcL (4.19-5.50); Red Cell Distribution Width 13.6 % (11.5-14.5)
--- NOTE | 2018-05-02 09:07 | Internal Med Progress Note ---
<Tanisha Dunbar - Last Filed: 05/02/18 13:20> Hospitalist Progress Note - Encounter Date of Encounter: 05/02/18 Time of Encounter: 09:00 - Subjective Interval History: Patient seen and examined. No acute events overnight. Patient is sitting comfortably in bed. He is off BiPap and on 3L nasal cannula. Patient indicates that he is feeling better. Denies any difficulty breathing and indicates coughing is improved. Patient denies chest pain. Patient indicates that he is having left low back pain. Indicates that hes had same rash on arms before and it comes and goes. Denies abdominal pain. Denies fever, chills. Denies swelling. Denies nausea/vomiting, bowel changes. Denies urinary symptoms. - Exam Vitals: Temp Pulse Resp BP Pulse Ox 97.5 F L 70 27 148/91 90 05/02/18 08:10 05/02/18 08:10 05/02/18 08:10 05/02/18 08:10 05/02/18 08:10 Exam: General: Alert and oriented. No acute distress. Well-developed. Head: atraumatic, normocephalic. Eye: pupils equal, round, and reactive. Sclera anicteric. EOMI. ENT: Moist mucus membrane. Normal oropharynx. Neck: supple, trachea midline. Lungs: CTAB. No rhonchi, rales, or wheezes. No respiratory distress. No accessory muscle use. Cardiovascular: Normal S1 & S2. No rubs or gallops. No JVD. Pulse regular. Abdomen: Soft. Normal bowel sounds. Nondistended, no rigidity. Nontender. Back: Left lumbar musculature tight and tender to palpation. Right lumbar is soft and nontender. Extremities: No deformity, no edema or tenderness, no joint swelling or clubbing. Skin: warm, dry, and intact. Rash on bilateral arms. Neurological: Right sided weakness. Aphasia. Normal comprehension. - Assessment and Plan (1) Sepsis Current Visit: Yes Status: Acute Assessment and Plan: On admission, met 3 SIRS criteria with tachycardia, tachypnea, and leukocytosis. Source: suspect aspiration pneumonia. Lactic acid normal. One out of 2 of blood cultures drawn 04/29 show gram positive cocci-clusters. Other shows NGTD. Likely contaminant. CTA chest was negative. CTA abdomen was negative. (2) Bronchitis Current Visit: Yes Status: Suspected Assessment and Plan: Causative organism: gram positive cocci, possibly MRSA. Patient presented with cough, SOB, fever. Resides in assisted. History of CVA with aphasia and right-sided weakness. Swallow study failed - modified diet. Legionella and strep pneumoniae antigens are negative. Nasal MRSA screen is positive. Respiratory viral panel is negative. Respiratory bacterial panel is negative. Sputum culture shows many gram positive cocci. CTA chest showed no focal consolidation. CXR showed slightly increased perihilar opacities, vascular congestion vs viral infection. No evidence of pneumonia. Discontinue azithromycin, vancomycin, and zosyn. Start doxycycline PO for 10 day course. (3) COPD exacerbation Current Visit: Yes Status: Acute Assessment and Plan: Patient presented with SOB/dyspnea. History of smoking 3 PPD, quit May 2017. History of COPD, not on home oxygen. Improved. Weaned from BiPap to 3L nasal cannula. Continue DuoNebs q4h scheduled. Continue Mucinex for cough. Discontinue solu-medrol 80 mg Q8HR IVP. Start prednisone 60mg daily PO. Supplemental O2 with titration and SPO2 monitoring. (4) Chest pain Current Visit: Yes Status: Resolved Assessment and Plan: At admission, elevated troponin 0.28. Trended down. No acute EKG changes. TTE showed normal LVEF. CTA chest was negative. Chest pain resolved. Cardiology consulted and determined not ACS. Continue to monitor. (5) Abdominal pain Current Visit: Yes Status: Resolved Assessment and Plan: Patient complained of RLQ abdominal pain. CTA abdomen was negative. Resolved. (6) History of CVA (cerebrovascular accident) Current Visit: Yes Status: Resolved Assessment and Plan: Hx of CVA in May 2017 w/residual right-sided weakness and aphasia. Monitor pt. for signs of neurologic changes. PT/OT consults ordered to assess for rehabilitation needs. (7) Seizure Current Visit: Yes Status: Resolved Assessment and Plan: Hx of seizure over the weekend when admitted to the hospital. Pt. denies previous seizures or hx of taking anti-seizure medications. Monitor and continue Keppra. (8) HTN (hypertension) Current Visit: Yes Status: Chronic Assessment and Plan: Hx of chronic HTN. Monitor patient and vital signs. Continue home meds: amlodipine, carvedilol, lisinopril, and hydrochlorothiazide. (9) HLD (hyperlipidemia) Current Visit: Yes Status: Chronic Assessment and Plan: Hx of chronic HLD. Continue Lipitor. (10) DVT prophylaxis Current Visit: Yes Status: Acute Assessment and Plan: Lovenox. (11) Fluid overload Current Visit: Yes Status: Suspected Assessment and Plan: Patient presented with SOB/dyspnea. BNP normal. CXR showed slightly increased perihilar opacities, vascular congestion vs viral infection. No evidence of pneumonia. Will provide one time dose of Lasix 40mg and monitor for improvement of breathing. - Time Spent with Patient Total time spent is greater than 50% in coordination of care (as documented) at patient's floor/unit and/or counseling patient: Internal Medicine: Result - Labs CBC & Chem 7: 05/02/18 05:15 05/02/18 04:00 Labs: Short CBC 05/02/18 Range/Units 05:15 WBC 10.4 (4.3-11.1) K/mcL Hgb 11.3 L (12.9-16.9) g/dL Hct 33.9 L (37.5-50.1) % Plt Count 298 (140-400) K/mcL Neutrophils # 9.1 H (1.6-8.9) K/mcL BMP 05/02/18 04:00 Sodium 138 Potassium 3.3 L Chloride 105 Carbon Dioxide 25 BUN 19 Creatinine 0.65 L Glucose 158 H Calcium 8.8 Liver Function 05/02/18 Range/Units 04:00 Total Bilirubin 0.4 (0.3-1.0) mg/dL AST 15 (13-39) Units/L ALT 18 (7-52) Units/L Alkaline Phosphatase 48 (34-104) Units/L Albumin 3.3 L (3.5-5.7) g/dL - ABG Interpretation ABG results: ABG ABG pH 7.45 pH Units (7.32-7.45) 04/29/18 16:43 ABG pCO2 37 mmHg (35-45) 04/29/18 16:43 ABG pO2 68 mmHg (85-104) L 04/29/18 16:43 ABG O2 Saturation 94 % (95-98) L 04/29/18 16:43 PT/INR, D-dimer PT 10.8 Seconds (9.4-12.1) 04/30/18 01:47 - Impressions Impressions Chest X-Ray 05/01/18 16:21 IMPRESSION: Slightly increased perihilar opacities may represent vascular congestion. A viral infection may also be considered. No evidence of underlying pneumonia. D/ / Humberto Lopez MD / Humberto Lopez MD Interpreting Provider: Humberto Lopez MD Consult Discharge Plan - Plan Referrals: Tio Lincoln [Primary Care Provider] - <Bryon Can - Last Filed: 05/02/18 17:24> Hospitalist Progress Note - Encounter Date of Encounter: 05/02/18 - Exam Vitals: Temp Pulse Resp BP Pulse Ox 98.0 F 60 18 111/54 98 05/02/18 15:54 05/02/18 15:54 05/02/18 15:54 05/02/18 15:54 05/02/18 15:54 - Assessment and Plan (1) History of CVA (cerebrovascular accident) Current Visit: Yes Status: Resolved (2) DVT prophylaxis Current Visit: Yes Status: Acute (3) Sepsis Current Visit: Yes Status: Acute (4) Seizure Current Visit: Yes Status: Resolved (5) Abdominal pain Current Visit: Yes Status: Resolved (6) Chest pain Current Visit: Yes Status: Resolved (7) COPD exacerbation Current Visit: Yes Status: Acute (8) HLD (hyperlipidemia) Current Visit: Yes Status: Chronic (9) HTN (hypertension) Current Visit: Yes Status: Chronic (10) Bronchitis Current Visit: Yes Status: Suspected (11) Fluid overload Current Visit: Yes Status: Suspected - Time Spent with Patient Total time spent is greater than 50% in coordination of care (as documented) at patient's floor/unit and/or counseling patient: Internal Medicine: Result - Labs CBC & Chem 7: 05/02/18 05:15 05/02/18 04:00 Labs: Short CBC 05/02/18 Range/Units 05:15 WBC 10.4 (4.3-11.1) K/mcL Hgb 11.3 L (12.9-16.9) g/dL Hct 33.9 L (37.5-50.1) % Plt Count 298 (140-400) K/mcL Neutrophils # 9.1 H (1.6-8.9) K/mcL BMP 05/02/18 04:00 Sodium 138 Potassium 3.3 L Chloride 105 Carbon Dioxide 25 BUN 19 Creatinine 0.65 L Glucose 158 H Calcium 8.8 Liver Function 05/02/18 Range/Units 04:00 Total Bilirubin 0.4 (0.3-1.0) mg/dL AST 15 (13-39) Units/L ALT 18 (7-52) Units/L Alkaline Phosphatase 48 (34-104) Units/L Albumin 3.3 L (3.5-5.7) g/dL - ABG Interpretation ABG results: ABG ABG pH 7.45 pH Units (7.32-7.45) 04/29/18 16:43 ABG pCO2 37 mmHg (35-45) 04/29/18 16:43 ABG pO2 68 mmHg (85-104) L 04/29/18 16:43 ABG O2 Saturation 94 % (95-98) L 04/29/18 16:43 PT/INR, D-dimer PT 10.8 Seconds (9.4-12.1) 04/30/18 01:47 - Impressions Impressions Chest X-Ray 05/01/18 16:21 IMPRESSION: Slightly increased perihilar opacities may represent vascular congestion. A viral infection may also be considered. No evidence of underlying pneumonia. D/ / Humberto Lopez MD / Humberto Lopez MD Interpreting Provider: Humberto Lopez MD - Attending Attestation I performed an independent interview and exam of this patient. I agree with the findings, assessment, and plan of Dr. Dunbar, internal medicine legal summer intern. Overall patient is improved but there is some concern now for some mild pulmonary vascular congestion. Will try 1 dose of Lasix 40 mg IV. Patient has been weaned off BiPAP. We will de-escalate antibiotics to doxycycline given finding of MRSA in his sputum. His chest x-ray shows no kathi pneumonia, but he at least clinically has a bronchitis. Continue his steroid taper for COPD exacerbation. Exam: Gen: AAOx3, NAD Neck supple Lung - dimin bs bases Ht rrr Abd soft +BS, NT Ext tr edema Neuro- right hemiparesis <ManjinderTanisha - Last Filed: 05/02/18 13:20> (1) Sepsis Qualifiers: Sepsis type: sepsis due to unspecified organism Qualified Code(s): A41.9 - Sepsis, unspecified organism (4) Chest pain Qualifiers: Chest pain type: other chest pain Qualified Code(s): R07.89 - Other chest pain; R07.8 - Other chest pain (5) Abdominal pain Qualifiers: Abdominal location: right lower quadrant Qualified Code(s): R10.31 - Right lower quadrant pain (8) HTN (hypertension) Qualifiers: Hypertension type: essential hypertension Qualified Code(s): I10 - Essential (primary) hypertension (9) HLD (hyperlipidemia) Qualifiers: Hyperlipidemia type: pure hypercholesterolemia Qualified Code(s): E78.00 - Pure hypercholesterolemia, unspecified; E78.0 - Pure hypercholesterolemia <Bryon Can - Last Filed: 05/02/18 17:24> (3) Sepsis Qualifiers: Sepsis type: sepsis due to unspecified organism Qualified Code(s): A41.9 - Sepsis, unspecified organism (5) Abdominal pain Qualifiers: Abdominal location: right lower quadrant Qualified Code(s): R10.31 - Right lower quadrant pain (6) Chest pain Qualifiers: Chest pain type: other chest pain Qualified Code(s): R07.89 - Other chest pain; R07.8 - Other chest pain (8) HLD (hyperlipidemia) Qualifiers: Hyperlipidemia type: pure hypercholesterolemia Qualified Code(s): E78.00 - Pure hypercholesterolemia, unspecified; E78.0 - Pure hypercholesterolemia (9) HTN (hypertension) Qualifiers: Hypertension type: essential hypertension Qualified Code(s): I10 - Essential (primary) hypertension
[2018-05-02] MEDS: Sennosides 8.6 MG TABLET PO SCH (09:45)
[2018-05-02] MEDS: amLODIPine 5 MG TABLET PO SCH (09:48)
[2018-05-02] MEDS: hydroCHLOROthiazide 25 MG TABLET PO SCH (09:50)
[2018-05-02] MEDS: Aspirin Enteric Coated 81 MG Tablet PO SCH (09:52)
[2018-05-02] MEDS: Lisinopril 20 MG TABLET PO SCH (09:55)
[2018-05-02] MEDS: levETIRAcetam 250 MG TABLET PO SCH ×2 (09:56→20:05)
[2018-05-02] MEDS ORDERED: Furosemide 40 MG/4 ML VIAL IVP ONE (11:24)
[2018-05-02] MEDS: Budesonide/Formoterol 160/4.5 1 PUFF INH IH SCH ×2 (11:30→20:44)
[2018-05-02] MEDS: Ammonium Lactate 30 APPL/225 GM BOTTLE TP SCH (11:50)
[2018-05-02] MEDS: *HR* Enoxaparin 40 MG/0.4 ML SYRINGE SQ SCH (17:31)
[2018-05-02] MEDS: Doxycycline 100 MG CAPSULE PO SCH (20:06)
[2018-05-03] MEDS: Ipratropium/Albuterol Neb 3 ML IH SCH ×7 (00:50→23:34)
[2018-05-03 06:12] LABS: Alanine Aminotransferase 21 Units/L (7-52); Albumin 3.5 g/dL (3.5-5.7); Albumin/Globulin Ratio 1.2 (1.1-2.2); Alkaline Phosphatase 58 Units/L (34-104); Aspartate Amino Transferase 24 Units/L (13-39); BUN/Creatinine Ratio 31 (6-26); Bilirubin,Total 0.3 mg/dL (0.3-1.0); Blood Urea Nitrogen 20 mg/dL (8-23); Carbon Dioxide 20 mEq/L (23-29); Chloride 105 mEq/L (98-107); Globulin 2.9 g/dL (2.4-3.5); Glucose 104 mg/dL (70-105); Osmolality,Calculated 289 (280-300); Potassium 3.7 mEq/L (3.5-5.1); Sodium 138 mEq/L (136-145); Total Protein 6.4 g/dL (6.4-8.9); eGFR For Non-African Americans > 60 (> 60)
[2018-05-03 07:48] LABS: Hematocrit 38.1 % (37.5-50.1); Hemoglobin 12.4 g/dL (12.9-16.9); Immature Granulocytes % 0.4 % (0-4); Lymphocytes # 1.7 K/mcL (0.6-4.6); Lymphocytes % 16.4 %; Mean Corpuscular HGB Conc 32.5 g/dL (31.6-35.5); Mean Corpuscular Hemoglobin 30.8 pg (28.0-33.3); Mean Corpuscular Volume 94.8 fL (83.0-100.0); Mean Platelet Volume 9.6 fL (9.4-12.4); Monocytes # 1.4 K/mcL (0.0-1.3); Monocytes % 13.7 %; Neutrophils # 7.2 K/mcL (1.6-8.9); Platelet Count 312 K/mcL (140-400); Red Blood Count 4.02 M/mcL (4.19-5.50); Red Cell Distribution Width 13.5 % (11.5-14.5); Segmented Neutrophils % 69.5 %
[2018-05-03] MEDS: Budesonide/Formoterol 160/4.5 1 PUFF INH IH SCH ×2 (07:53→20:10)
--- NOTE | 2018-05-03 09:39 | Internal Med Progress Note ---
<Bryon Can - Last Filed: 05/03/18 12:48> Hospitalist Progress Note - Encounter Date of Encounter: 05/03/18 - Exam Vitals: Temp Pulse Resp BP Pulse Ox 97.8 F 74 19 141/86 94 05/03/18 12:28 05/03/18 12:28 05/03/18 12:28 05/03/18 12:28 05/03/18 12:28 - Assessment and Plan (1) History of CVA (cerebrovascular accident) Current Visit: Yes Status: Resolved (2) DVT prophylaxis Current Visit: Yes Status: Acute (3) Sepsis Current Visit: Yes Status: Acute (4) Seizure Current Visit: Yes Status: Resolved (5) Abdominal pain Current Visit: Yes Status: Resolved (6) Chest pain Current Visit: Yes Status: Resolved (7) COPD exacerbation Current Visit: Yes Status: Acute (8) HLD (hyperlipidemia) Current Visit: Yes Status: Chronic (9) HTN (hypertension) Current Visit: Yes Status: Chronic (10) Bronchitis Current Visit: Yes Status: Suspected (11) Fluid overload Current Visit: Yes Status: Suspected - Time Spent with Patient Total time spent is greater than 50% in coordination of care (as documented) at patient's floor/unit and/or counseling patient: Internal Medicine: Result - Labs CBC & Chem 7: 05/03/18 06:45 05/03/18 05:05 Labs: Short CBC 05/03/18 Range/Units 06:45 WBC 10.3 (4.3-11.1) K/mcL Hgb 12.4 L (12.9-16.9) g/dL Hct 38.1 (37.5-50.1) % Plt Count 312 (140-400) K/mcL Neutrophils # 7.2 (1.6-8.9) K/mcL BMP 05/03/18 05:05 Sodium 138 Potassium 3.7 Chloride 105 Carbon Dioxide 20 L BUN 20 Creatinine 0.64 L Glucose 104 Calcium 9.0 Liver Function 05/03/18 Range/Units 05:05 Total Bilirubin 0.3 (0.3-1.0) mg/dL AST 24 (13-39) Units/L ALT 21 (7-52) Units/L Alkaline Phosphatase 58 (34-104) Units/L Albumin 3.5 (3.5-5.7) g/dL - ABG Interpretation ABG results: ABG ABG pH 7.45 pH Units (7.32-7.45) 04/29/18 16:43 ABG pCO2 37 mmHg (35-45) 04/29/18 16:43 ABG pO2 68 mmHg (85-104) L 04/29/18 16:43 ABG O2 Saturation 94 % (95-98) L 04/29/18 16:43 PT/INR, D-dimer PT 10.8 Seconds (9.4-12.1) 04/30/18 01:47 Consult Discharge Plan - Plan Referrals: Tio Lincoln [Primary Care Provider] - - Attending Attestation I performed an independent interview and exam of this patient. I agree with the findings, assessment, and plan of Dr. Pulido, internal medicine resident. Patient is improving. He continues on doxycycline for suspected MRSA bronchitis. He continues on steroids for his COPD exacerbation with significant improvement in his breathing. Patient is also felt to have acute on chronic diastolic CHF for which he continues on IV Lasix. Patient states his breathing is much improved. We will continue our efforts to wean oxygen as able. Exam: Gen.: Alert and oriented, no acute distress. Much improved appearance from admission. Skin is warm and dry, flushed Neck is supple Lungs show diminished breath sounds at the bases Heart is regular rate and rhythm Abdomen is soft nontender nondistended with normoactive bowel sounds Ext - pitting edema bilaterally that improved since admission Neurological exam shows right hemiparesis Discussed the case in detail with the patient and his at the bedside. Continue to hopefully wean off supplemental oxygen <Uche Pulido - Last Filed: 05/03/18 13:18> Hospitalist Progress Note - Encounter Date of Encounter: 05/03/18 Time of Encounter: 09:37 - Subjective Interval History: Patient seen and examined at bedside. Patient has aphasia, but is able to answer yes/no questions by nodding/shaking his head. Comprehension intact. Admits to chest congestion, but denies cough, n/v/d, fever, or chills. No further complaints. - Exam Vitals: Temp Pulse Resp BP Pulse Ox 97.4 F L 63 21 132/68 97 05/03/18 08:06 05/03/18 08:06 05/03/18 08:06 05/03/18 08:06 05/03/18 08:06 Exam: General: Well nourished, well developed. Head: Atraumatic, normocephalic Heart: RRR, no murmurs rubs or gallops Lungs: Bilateral crackles, diminished breath sounds bilaterally Abdomen: Soft, nontender Neuro: R sided weakness. Aphasia with normal comprehension. Extremities: Pulses 2/4 throughout. No edema Skin: b/l UE rash. - Assessment and Plan (1) Bronchitis Current Visit: Yes Status: Suspected Assessment and Plan: Patient presented with cough, SOB, fever; Resides in [facility] - History of CVA with aphasia and R-sided weakness - Swallow study failed - modified diet - Nasal MRSA screen + - Sputum CX shows many GPC - CXR: slightly increased perihilar opacities, vascular congestion vs viral infection Plan: - Doxycycline 100 mg PO BID; day 2 (2) COPD exacerbation Current Visit: Yes Status: Acute Assessment and Plan: Known hx. Of COPD, no on home O2 - Patient presented with SOB/dyspnea - History of smoking 3 PPD, quit May 2017 Plan: - Mucinex 600 mg by mouth twice a day - Prednisone 60 mg by mouth daily - DuoNeb 3 mL inhaled every 4 scheduled - Symbicort 2 puffs inhaled twice a day - Supplemental O2 with titration and SPO2 monitoring (3) Fluid overload Current Visit: Yes Status: Suspected Assessment and Plan: Patient presented with SOB/dyspnea - CXR showed slightly increased perihilar opacities, vascular congestion vs viral infection - BNP WNL - Continue diuresis (4) History of CVA (cerebrovascular accident) Current Visit: Yes Status: Resolved Assessment and Plan: - 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 for signs of neurologic changes - PT/OT consults ordered to assess for rehabilitation needs (5) Seizure Current Visit: Yes Status: Resolved Assessment and Plan: - Hx of seizure over the weekend when admitted to the hospital - Pt. denies previous seizures or hx of taking anti-seizure medications - Monitor and continue Keppra (6) HTN (hypertension) Current Visit: Yes Status: Chronic Assessment and Plan: - Norvasc, hydralazine, coreg, lisinopril, HCTZ (7) HLD (hyperlipidemia) Current Visit: Yes Status: Chronic Assessment and Plan: - Continue Lipitor (8) DVT prophylaxis Current Visit: Yes Status: Acute Assessment and Plan: - Lovenox - Time Spent with Patient Total time spent is greater than 50% in coordination of care (as documented) at patient's floor/unit and/or counseling patient: less than 15 minutes Internal Medicine: Result - Labs CBC & Chem 7: 05/03/18 06:45 05/03/18 05:05 Labs: Short CBC 05/03/18 Range/Units 06:45 WBC 10.3 (4.3-11.1) K/mcL Hgb 12.4 L (12.9-16.9) g/dL Hct 38.1 (37.5-50.1) % Plt Count 312 (140-400) K/mcL Neutrophils # 7.2 (1.6-8.9) K/mcL BMP 05/03/18 05:05 Sodium 138 Potassium 3.7 Chloride 105 Carbon Dioxide 20 L BUN 20 Creatinine 0.64 L Glucose 104 Calcium 9.0 Liver Function 05/03/18 Range/Units 05:05 Total Bilirubin 0.3 (0.3-1.0) mg/dL AST 24 (13-39) Units/L ALT 21 (7-52) Units/L Alkaline Phosphatase 58 (34-104) Units/L Albumin 3.5 (3.5-5.7) g/dL - ABG Interpretation ABG results: ABG ABG pH 7.45 pH Units (7.32-7.45) 04/29/18 16:43 ABG pCO2 37 mmHg (35-45) 04/29/18 16:43 ABG pO2 68 mmHg (85-104) L 04/29/18 16:43 ABG O2 Saturation 94 % (95-98) L 04/29/18 16:43 PT/INR, D-dimer PT 10.8 Seconds (9.4-12.1) 04/30/18 01:47 <Bryon Can - Last Filed: 05/03/18 12:48> (3) Sepsis Qualifiers: Sepsis type: sepsis due to unspecified organism Qualified Code(s): A41.9 - Sepsis, unspecified organism (5) Abdominal pain Qualifiers: Abdominal location: right lower quadrant Qualified Code(s): R10.31 - Right lower quadrant pain (6) Chest pain Qualifiers: Chest pain type: other chest pain Qualified Code(s): R07.89 - Other chest pain; R07.8 - Other chest pain (8) HLD (hyperlipidemia) Qualifiers: Hyperlipidemia type: pure hypercholesterolemia Qualified Code(s): E78.00 - Pure hypercholesterolemia, unspecified; E78.0 - Pure hypercholesterolemia (9) HTN (hypertension) Qualifiers: Hypertension type: essential hypertension Qualified Code(s): I10 - Essential (primary) hypertension <Uche Pulido - Last Filed: 05/03/18 13:18> (6) HTN (hypertension) Qualifiers: Hypertension type: essential hypertension Qualified Code(s): I10 - Essential (primary) hypertension (7) HLD (hyperlipidemia) Qualifiers: Hyperlipidemia type: pure hypercholesterolemia Qualified Code(s): E78.00 - Pure hypercholesterolemia, unspecified; E78.0 - Pure hypercholesterolemia
[2018-05-03] MEDS: hydroCHLOROthiazide 25 MG TABLET PO SCH (09:57)
[2018-05-03] MEDS: Doxycycline 100 MG CAPSULE PO SCH ×2 (09:57→20:36)
[2018-05-03] MEDS: predniSONE 20 MG TABLET PO SCH (09:57)
[2018-05-03] MEDS: Lisinopril 20 MG TABLET PO SCH (09:58)
[2018-05-03] MEDS: amLODIPine 5 MG TABLET PO SCH (09:58)
[2018-05-03] MEDS: Aspirin Enteric Coated 81 MG Tablet PO SCH (09:58)
[2018-05-03] MEDS: Sennosides 8.6 MG TABLET PO SCH (09:58)
[2018-05-03] MEDS: levETIRAcetam 250 MG TABLET PO SCH ×2 (09:58→20:36)
[2018-05-03] MEDS: Acetylcysteine 10% 2 ML INHSOL IH SCH ×2 (16:26→20:09)
[2018-05-03] MEDS: *HR* Enoxaparin 40 MG/0.4 ML SYRINGE SQ SCH (17:47)
[2018-05-04] MEDS: Ipratropium/Albuterol Neb 3 ML IH SCH ×6 (04:34→23:48)
[2018-05-04] MEDS: Acetylcysteine 10% 2 ML INHSOL IH SCH ×4 (04:34→20:46)
--- NOTE | 2018-05-04 08:08 | Internal Med Progress Note ---
<Uche Pulido - Last Filed: 05/04/18 12:19> Hospitalist Progress Note - Encounter Date of Encounter: 05/04/18 Time of Encounter: 10:45 - Subjective Interval History: Patient seen and examined at bedside. Patient has aphasia, but is able to answer yes/no questions by nodding/shaking his head. Comprehension intact. Reports some mild cough and congestion today. He denies n/v/d, fever, or chills. No further complaints. - Exam Vitals: Temp Pulse Resp BP Pulse Ox 98.9 F 64 20 130/78 97 05/03/18 22:01 05/03/18 22:01 05/04/18 07:53 05/03/18 22:01 05/04/18 07:53 Exam: General: Well nourished, well developed. Head: Atraumatic, normocephalic Heart: RRR, no murmurs rubs or gallops Lungs: Bilateral crackles, diminished breath sounds bilaterally Abdomen: Soft, nontender Neuro: R sided weakness. Aphasia with normal comprehension. Extremities: Pulses 2/4 throughout. No edema Skin: b/l UE rash. - Assessment and Plan (1) Bronchitis Current Visit: Yes Status: Suspected Assessment and Plan: Patient presented with cough, SOB, fever; Resides in assisted - History of CVA with aphasia and R-sided weakness - Swallow study failed - modified diet - Nasal MRSA screen + - Sputum CX shows many GPC - CXR: slightly increased perihilar opacities, vascular congestion vs viral infection Plan: - Doxycycline 100 mg PO BID; day 3 (2) COPD exacerbation Current Visit: Yes Status: Acute Assessment and Plan: Known hx. Of COPD, no on home O2 - Patient presented with SOB/dyspnea - History of smoking 3 PPD, quit May 2017 Plan: - Mucinex 600 mg by mouth twice a day - Prednisone 60 mg by mouth daily - DuoNeb 3 mL inhaled every 4 scheduled - Symbicort 2 puffs inhaled twice a day - Supplemental O2 with titration and SPO2 monitoring (3) Fluid overload Current Visit: Yes Status: Suspected Assessment and Plan: Patient presented with SOB/dyspnea - CXR showed slightly increased perihilar opacities, vascular congestion vs viral infection - BNP WNL - Continue diuresis (4) History of CVA (cerebrovascular accident) Current Visit: Yes Status: Resolved Assessment and Plan: - 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 for signs of neurologic changes - PT/OT consults ordered to assess for rehabilitation needs (5) Seizure Current Visit: Yes Status: Resolved Assessment and Plan: - Hx of seizure over the weekend when admitted to the hospital - Pt. denies previous seizures or hx of taking anti-seizure medications - Monitor and continue Keppra (6) HTN (hypertension) Current Visit: Yes Status: Chronic Assessment and Plan: - Norvasc, hydralazine, coreg, lisinopril, HCTZ (7) HLD (hyperlipidemia) Current Visit: Yes Status: Chronic Assessment and Plan: - Continue Lipitor (8) DVT prophylaxis Current Visit: Yes Status: Acute Assessment and Plan: - Lovenox - Time Spent with Patient Total time spent is greater than 50% in coordination of care (as documented) at patient's floor/unit and/or counseling patient: less than 15 minutes Internal Medicine: Result - Labs CBC & Chem 7: 05/04/18 08:51 05/04/18 08:51 - ABG Interpretation ABG results: ABG ABG pH 7.45 pH Units (7.32-7.45) 04/29/18 16:43 ABG pCO2 37 mmHg (35-45) 04/29/18 16:43 ABG pO2 68 mmHg (85-104) L 04/29/18 16:43 ABG O2 Saturation 94 % (95-98) L 04/29/18 16:43 PT/INR, D-dimer PT 10.8 Seconds (9.4-12.1) 04/30/18 01:47 Consult Discharge Plan - Plan Referrals: Tio Lincoln [Primary Care Provider] - <Bryon Can - Last Filed: 05/04/18 13:51> Hospitalist Progress Note - Encounter Date of Encounter: 05/04/18 - Exam Vitals: Temp Pulse Resp BP Pulse Ox 98.2 F 67 18 136/73 98 05/04/18 11:08 05/04/18 11:08 05/04/18 11:16 05/04/18 11:08 05/04/18 11:16 - Assessment and Plan (1) History of CVA (cerebrovascular accident) Current Visit: Yes Status: Resolved (2) DVT prophylaxis Current Visit: Yes Status: Acute (3) Sepsis Current Visit: Yes Status: Acute (4) Seizure Current Visit: Yes Status: Resolved (5) Abdominal pain Current Visit: Yes Status: Resolved (6) Chest pain Current Visit: Yes Status: Resolved (7) COPD exacerbation Current Visit: Yes Status: Acute (8) HLD (hyperlipidemia) Current Visit: Yes Status: Chronic (9) HTN (hypertension) Current Visit: Yes Status: Chronic (10) Bronchitis Current Visit: Yes Status: Suspected (11) Fluid overload Current Visit: Yes Status: Suspected - Time Spent with Patient Total time spent is greater than 50% in coordination of care (as documented) at patient's floor/unit and/or counseling patient: Internal Medicine: Result - Labs CBC & Chem 7: 05/04/18 08:51 05/04/18 08:51 Labs: Short CBC 05/04/18 Range/Units 08:51 WBC 12.9 H (4.3-11.1) K/mcL Hgb 13.6 (12.9-16.9) g/dL Hct 40.8 (37.5-50.1) % Plt Count 367 (140-400) K/mcL Neutrophils # 8.9 (1.6-8.9) K/mcL BMP 05/04/18 08:51 Sodium 139 Potassium 2.9 L Chloride 101 Carbon Dioxide 31 H BUN 19 Creatinine 0.62 L Glucose 87 Calcium 9.2 - ABG Interpretation ABG results: ABG ABG pH 7.45 pH Units (7.32-7.45) 04/29/18 16:43 ABG pCO2 37 mmHg (35-45) 04/29/18 16:43 ABG pO2 68 mmHg (85-104) L 04/29/18 16:43 ABG O2 Saturation 94 % (95-98) L 04/29/18 16:43 PT/INR, D-dimer PT 10.8 Seconds (9.4-12.1) 04/30/18 01:47 - Attending Attestation I performed an independent interview and exam of this patient. I agree with the findings, assessment, and plan of Dr. Pulido, internal medicine resident. Patient continues to improve. He continues on doxycycline for suspected MRSA bronchitis. He continues on steroids for his COPD exacerbation with significant improvement in his breathing. Patient is also felt to have acute on chronic diastolic CHF for which he continues on IV Lasix. We will continue our efforts to wean oxygen as able. Patient is still using BiPAP at night. Remains on supplemental oxygen. Exam: Gen.: Alert and oriented, no acute distress. Much improved appearance from admission. nontoxic appearance. Skin is warm and dry Neck is supple Lungs show diminished breath sounds at the bases Heart is regular rate and rhythm Abdomen is soft nontender nondistended with normoactive bowel sounds Ext - pitting edema bilaterally that improved since admission Neurological exam shows right hemiparesis Discussed the case in detail with the patient and his at the bedside. Continue to hopefully wean off supplemental oxygen <Uche Pulido - Last Filed: 05/04/18 12:19> (6) HTN (hypertension) Qualifiers: Hypertension type: essential hypertension Qualified Code(s): I10 - Essential (primary) hypertension (7) HLD (hyperlipidemia) Qualifiers: Hyperlipidemia type: pure hypercholesterolemia Qualified Code(s): E78.00 - Pure hypercholesterolemia, unspecified; E78.0 - Pure hypercholesterolemia <Bryon Can - Last Filed: 05/04/18 13:51> (3) Sepsis Qualifiers: Sepsis type: sepsis due to unspecified organism Qualified Code(s): A41.9 - Sepsis, unspecified organism (5) Abdominal pain Qualifiers: Abdominal location: right lower quadrant Qualified Code(s): R10.31 - Right lower quadrant pain (6) Chest pain Qualifiers: Chest pain type: other chest pain Qualified Code(s): R07.89 - Other chest pain; R07.8 - Other chest pain (8) HLD (hyperlipidemia) Qualifiers: Hyperlipidemia type: pure hypercholesterolemia Qualified Code(s): E78.00 - Pure hypercholesterolemia, unspecified; E78.0 - Pure hypercholesterolemia (9) HTN (hypertension) Qualifiers: Hypertension type: essential hypertension Qualified Code(s): I10 - Essential (primary) hypertension
[2018-05-04] MEDS: Aspirin Enteric Coated 81 MG Tablet PO SCH (08:42)
[2018-05-04] MEDS: Sennosides 8.6 MG TABLET PO SCH (08:42)
[2018-05-04] MEDS: Doxycycline 100 MG CAPSULE PO SCH ×2 (08:42→21:33)
[2018-05-04] MEDS: predniSONE 20 MG TABLET PO SCH (08:42)
[2018-05-04] MEDS: hydroCHLOROthiazide 25 MG TABLET PO SCH (08:45)
[2018-05-04] MEDS: Lisinopril 20 MG TABLET PO SCH (08:45)
[2018-05-04] MEDS: levETIRAcetam 250 MG TABLET PO SCH ×2 (08:45→21:33)
[2018-05-04] MEDS: amLODIPine 5 MG TABLET PO SCH (08:46)
[2018-05-04 09:05] LABS: Basophils % 0.1 %; Eosinophils # 0.1 K/mcL (0.0-0.6); Eosinophils % 0.6 %; Hematocrit 40.8 % (37.5-50.1); Hemoglobin 13.6 g/dL (12.9-16.9); Immature Granulocytes % 0.5 % (0-4); Immature Platelets 2.6 % (1.1-6.1); Lymphocytes # 2.5 K/mcL (0.6-4.6); Lymphocytes % 19.4 %; Mean Corpuscular HGB Conc 33.3 g/dL (31.6-35.5); Mean Corpuscular Hemoglobin 31.1 pg (28.0-33.3); Mean Corpuscular Volume 93.4 fL (83.0-100.0); Mean Platelet Volume 9.1 fL (9.4-12.4); Monocytes # 1.4 K/mcL (0.0-1.3); Monocytes % 10.7 %; Neutrophils # 8.9 K/mcL (1.6-8.9); Platelet Count 367 K/mcL (140-400); Red Blood Count 4.37 M/mcL (4.19-5.50); Red Cell Distribution Width 13.3 % (11.5-14.5); Segmented Neutrophils % 68.7 %
[2018-05-04 09:30] LABS: BUN/Creatinine Ratio 31 (6-26); Blood Urea Nitrogen 19 mg/dL (8-23); Calcium 9.2 mg/dL (8.6-10.3); Carbon Dioxide 31 mEq/L (23-29); Chloride 101 mEq/L (98-107); Glucose 87 mg/dL (70-105); Osmolality,Calculated 290 (280-300); Potassium 2.9 mEq/L (3.5-5.1); Sodium 139 mEq/L (136-145); eGFR For Non-African Americans > 60 (> 60)
[2018-05-04] MEDS: Budesonide/Formoterol 160/4.5 1 PUFF INH IH SCH ×2 (11:16→20:46)
[2018-05-04] MEDS: *HR* Enoxaparin 40 MG/0.4 ML SYRINGE SQ SCH (17:14)
[2018-05-05] MEDS: Ipratropium/Albuterol Neb 3 ML IH SCH ×6 (04:34→23:11)
[2018-05-05] MEDS: Acetylcysteine 10% 2 ML INHSOL IH SCH ×4 (04:34→20:02)
[2018-05-05 04:44] LABS: Basophils % 0.1 %; Eosinophils # 0.1 K/mcL (0.0-0.6); Eosinophils % 0.6 %; Hematocrit 37.8 % (37.5-50.1); Immature Granulocytes % 0.8 % (0-4); Lymphocytes # 2.2 K/mcL (0.6-4.6); Lymphocytes % 16.1 %; Mean Corpuscular HGB Conc 34.4 g/dL (31.6-35.5); Mean Corpuscular Hemoglobin 31.5 pg (28.0-33.3); Mean Corpuscular Volume 91.5 fL (83.0-100.0); Mean Platelet Volume 9.3 fL (9.4-12.4); Monocytes # 1.2 K/mcL (0.0-1.3); Monocytes % 8.6 %; Neutrophils # 10.1 K/mcL (1.6-8.9); Platelet Count 358 K/mcL (140-400); Red Blood Count 4.13 M/mcL (4.19-5.50); Red Cell Distribution Width 13.2 % (11.5-14.5); Segmented Neutrophils % 73.8 %
[2018-05-05 05:02] LABS: BUN/Creatinine Ratio 31 (6-26); Blood Urea Nitrogen 19 mg/dL (8-23); Carbon Dioxide 29 mEq/L (23-29); Chloride 100 mEq/L (98-107); Glucose 100 mg/dL (70-105); Osmolality,Calculated 288 (280-300); Potassium 3.1 mEq/L (3.5-5.1); Sodium 138 mEq/L (136-145); eGFR For Non-African Americans > 60 (> 60)
[2018-05-05] MEDS: Budesonide/Formoterol 160/4.5 1 PUFF INH IH SCH ×2 (07:45→20:02)
[2018-05-05] MEDS: Sennosides 8.6 MG TABLET PO SCH (08:10)
[2018-05-05] MEDS: amLODIPine 5 MG TABLET PO SCH (08:11)
[2018-05-05] MEDS: Doxycycline 100 MG CAPSULE PO SCH (08:11)
[2018-05-05] MEDS: Aspirin Enteric Coated 81 MG Tablet PO SCH (08:13)
[2018-05-05] MEDS: hydroCHLOROthiazide 25 MG TABLET PO SCH (08:13)
[2018-05-05] MEDS: levETIRAcetam 250 MG TABLET PO SCH (08:14)
[2018-05-05] MEDS: predniSONE 20 MG TABLET PO SCH (08:14)
[2018-05-05] MEDS: Lisinopril 20 MG TABLET PO SCH (08:15)
[2018-05-05] MEDS: Ammonium Lactate 30 APPL/225 GM BOTTLE TP SCH (08:34)
--- NOTE | 2018-05-05 08:49 | Internal Med Progress Note ---
<Tanisha Dunbar - Last Filed: 05/05/18 08:48> Hospitalist Progress Note - Encounter Date of Encounter: 05/05/18 Time of Encounter: 08:30 - Subjective Interval History: Patient seen and examined. No acute events overnight. Patient is resting comfortably in bed. Patient reports he wants to go home. Patient indicates that he is feeling better. Denies any difficulty breathing and indicates coughing is improved. Patient indicates that he has LLQ abdominal pain. Indicates that he has constipation. Patient denies chest pain. Denies sore throat, congestion, runny nose, and headache. Denies fever, chills. Denies swelling. Denies nausea/ vomiting. Denies urinary symptoms. - Exam Vitals: Temp Pulse Resp BP Pulse Ox 98.1 F 58 18 131/78 98 05/05/18 07:04 05/05/18 07:04 05/05/18 07:04 05/05/18 07:04 05/05/18 07:04 Exam: General: Alert and oriented. No acute distress. Well-developed. Head: atraumatic, normocephalic. Eye: pupils equal, round, and reactive. Sclera anicteric. EOMI. ENT: Moist mucus membrane. Normal oropharynx. Neck: supple, trachea midline. Lungs: Diffuse rhonchi bilaterally. No wheezes. No respiratory distress. No accessory muscle use. Cardiovascular: Normal S1 & S2. No rubs or gallops. No JVD. Pulse regular. Abdomen: Soft. Normal bowel sounds. Nondistended, no rigidity. Nontender. Extremities: 1+ pitting edema right lower extremity, no edema in left. No deformity or tenderness, no joint swelling or clubbing. Skin: warm, dry, and intact. Rash on bilateral arms. Neurological: Right sided weakness. Aphasia. Normal comprehension. - Assessment and Plan (1) Sepsis Current Visit: Yes Status: Acute (2) Bronchitis Current Visit: Yes Status: Suspected (3) COPD exacerbation Current Visit: Yes Status: Acute (4) Chest pain Current Visit: Yes Status: Resolved (5) Abdominal pain Current Visit: Yes Status: Resolved (6) History of CVA (cerebrovascular accident) Current Visit: Yes Status: Resolved (7) Seizure Current Visit: Yes Status: Resolved (8) HTN (hypertension) Current Visit: Yes Status: Chronic (9) HLD (hyperlipidemia) Current Visit: Yes Status: Chronic (10) DVT prophylaxis Current Visit: Yes Status: Acute (11) Fluid overload Current Visit: Yes Status: Suspected - Time Spent with Patient Total time spent is greater than 50% in coordination of care (as documented) at patient's floor/unit and/or counseling patient: Internal Medicine: Result - Labs CBC & Chem 7: 05/05/18 04:05 05/05/18 04:05 Labs: Short CBC 05/04/18 05/05/18 Range/Units 08:51 04:05 WBC 12.9 H 13.7 H (4.3-11.1) K/mcL Hgb 13.6 13.0 (12.9-16.9) g/dL Hct 40.8 37.8 (37.5-50.1) % Plt Count 367 358 (140-400) K/mcL Neutrophils # 8.9 10.1 H (1.6-8.9) K/mcL BMP 05/04/18 05/04/18 05/05/18 08:51 21:20 04:05 Sodium 139 138 Potassium 2.9 L 2.9 L 3.1 L Chloride 101 100 Carbon Dioxide 31 H 29 BUN 19 19 Creatinine 0.62 L 0.61 L Glucose 87 100 Calcium 9.2 9.0 - ABG Interpretation ABG results: ABG ABG pH 7.45 pH Units (7.32-7.45) 04/29/18 16:43 ABG pCO2 37 mmHg (35-45) 04/29/18 16:43 ABG pO2 68 mmHg (85-104) L 04/29/18 16:43 ABG O2 Saturation 94 % (95-98) L 04/29/18 16:43 PT/INR, D-dimer PT 10.8 Seconds (9.4-12.1) 04/30/18 01:47 Consult Discharge Plan - Plan Referrals: Tio Lincoln [Primary Care Provider] - <Bryon Can - Last Filed: 05/05/18 12:55> Hospitalist Progress Note - Encounter Date of Encounter: 05/05/18 - Exam Vitals: Temp Pulse Resp BP Pulse Ox 98.1 F 58 18 131/78 90 05/05/18 07:04 05/05/18 07:04 05/05/18 11:29 05/05/18 07:04 05/05/18 11:29 - Assessment and Plan (1) History of CVA (cerebrovascular accident) Current Visit: Yes Status: Resolved (2) DVT prophylaxis Current Visit: Yes Status: Acute (3) Sepsis Current Visit: Yes Status: Acute (4) Seizure Current Visit: Yes Status: Resolved (5) Abdominal pain Current Visit: Yes Status: Resolved (6) Chest pain Current Visit: Yes Status: Resolved (7) COPD exacerbation Current Visit: Yes Status: Acute (8) HLD (hyperlipidemia) Current Visit: Yes Status: Chronic (9) HTN (hypertension) Current Visit: Yes Status: Chronic (10) Bronchitis Current Visit: Yes Status: Suspected (11) Fluid overload Current Visit: Yes Status: Suspected - Time Spent with Patient Total time spent is greater than 50% in coordination of care (as documented) at patient's floor/unit and/or counseling patient: Internal Medicine: Result - Labs CBC & Chem 7: 05/05/18 04:05 05/05/18 04:05 Labs: Short CBC 05/05/18 Range/Units 04:05 WBC 13.7 H (4.3-11.1) K/mcL Hgb 13.0 (12.9-16.9) g/dL Hct 37.8 (37.5-50.1) % Plt Count 358 (140-400) K/mcL Neutrophils # 10.1 H (1.6-8.9) K/mcL BMP 05/04/18 05/05/18 21:20 04:05 Sodium 138 Potassium 2.9 L 3.1 L Chloride 100 Carbon Dioxide 29 BUN 19 Creatinine 0.61 L Glucose 100 Calcium 9.0 - ABG Interpretation ABG results: ABG ABG pH 7.45 pH Units (7.32-7.45) 04/29/18 16:43 ABG pCO2 37 mmHg (35-45) 04/29/18 16:43 ABG pO2 68 mmHg (85-104) L 04/29/18 16:43 ABG O2 Saturation 94 % (95-98) L 04/29/18 16:43 PT/INR, D-dimer PT 10.8 Seconds (9.4-12.1) 04/30/18 01:47 - Impressions Impressions Chest X-Ray 05/05/18 08:05 IMPRESSION: 1. Vascular congestion with linear interstitial opacities involving the lower lung zones. These findings likely reflect an atypical pneumonia. Follow-up to resolution is recommended. D/ / Jerry Malik MD / Jerry Malik MD Interpreting Provider: Jerry Malik MD - Attending Attestation See my addendum on dc summary <Tanisha Dunbar - Last Filed: 05/05/18 08:48> (1) Sepsis Qualifiers: Sepsis type: sepsis due to unspecified organism Qualified Code(s): A41.9 - Sepsis, unspecified organism (4) Chest pain Qualifiers: Chest pain type: other chest pain Qualified Code(s): R07.89 - Other chest pain; R07.8 - Other chest pain (5) Abdominal pain Qualifiers: Abdominal location: right lower quadrant Qualified Code(s): R10.31 - Right lower quadrant pain (8) HTN (hypertension) Qualifiers: Hypertension type: essential hypertension Qualified Code(s): I10 - Essential (primary) hypertension (9) HLD (hyperlipidemia) Qualifiers: Hyperlipidemia type: pure hypercholesterolemia Qualified Code(s): E78.00 - Pure hypercholesterolemia, unspecified; E78.0 - Pure hypercholesterolemia <Bryon Can - Last Filed: 05/05/18 12:55> (3) Sepsis Qualifiers: Sepsis type: sepsis due to unspecified organism Qualified Code(s): A41.9 - Sepsis, unspecified organism (5) Abdominal pain Qualifiers: Abdominal location: right lower quadrant Qualified Code(s): R10.31 - Right lower quadrant pain (6) Chest pain Qualifiers: Chest pain type: other chest pain Qualified Code(s): R07.89 - Other chest pain; R07.8 - Other chest pain (8) HLD (hyperlipidemia) Qualifiers: Hyperlipidemia type: pure hypercholesterolemia Qualified Code(s): E78.00 - Pure hypercholesterolemia, unspecified; E78.0 - Pure hypercholesterolemia (9) HTN (hypertension) Qualifiers: Hypertension type: essential hypertension Qualified Code(s): I10 - Essential (primary) hypertension
--- NOTE | 2018-05-05 14:14 | Discharge Summary ---
<Tanisha Dunbar - Last Filed: 05/05/18 14:10> - NOTES TO OUTPATIENT PROVIDER Notes to Outpatient Provider: Patient needs followup CXR in 4 weeks. Patient needs outpatient sleep study. Patient is started on lasix and needs BMP in 3 days. Date of Encounter: 05/05/18 Time of Encounter: 08:30 - Discharge Diagnosis (1) Sepsis Priority: Primary Status: Acute Qualifiers: Sepsis type: sepsis due to unspecified organism Qualified Code(s): A41.9 - Sepsis, unspecified organism (2) Bronchitis Priority: Primary Status: Suspected (3) COPD exacerbation Priority: Primary Status: Acute (4) Chest pain Priority: Primary Status: Resolved Qualifiers: Chest pain type: other chest pain Qualified Code(s): R07.89 - Other chest pain; R07.8 - Other chest pain (5) Abdominal pain Priority: Secondary Status: Resolved Qualifiers: Abdominal location: right lower quadrant Qualified Code(s): R10.31 - Right lower quadrant pain (6) History of CVA (cerebrovascular accident) Priority: Secondary Status: Resolved (7) Seizure Priority: Secondary Status: Resolved (8) HTN (hypertension) Priority: Secondary Status: Chronic Qualifiers: Hypertension type: essential hypertension Qualified Code(s): I10 - Essential (primary) hypertension (9) HLD (hyperlipidemia) Priority: Secondary Status: Chronic Qualifiers: Hyperlipidemia type: pure hypercholesterolemia Qualified Code(s): E78.00 - Pure hypercholesterolemia, unspecified; E78.0 - Pure hypercholesterolemia (10) DVT prophylaxis Priority: Secondary Status: Acute (11) Fluid overload Priority: Primary Status: Suspected Hospital course: Mr. Hicks is a 62 year old male w/ PMH of COPD, CVA in May 2017 w/ residual right-sided weakness and aphasia, HLD, HTN, and hx of one seizure that occurred recently while admitted to [facility]. Pts. sister denies hx of previous seizures. Pts. CC is CP and SOB. SOB began several days ago and CP began this morning. Pt. stated CP is left sided and caused lt-sided abdominal pain. Pt. also reported RLQ abdominal pain. Denies nausea, vomiting, diaphoresis, or headache. Pt. denies home O2 use and reports fever, excess sputum production, cough, and SOB/dyspnea. Vital signs were within normal limits. WBC was elevated at 12.4. Otherwise, CBC and CMP were unremarkable. Lactic acid was normal. Troponin was elevated. Respiratory infection panel was negative. Legionella and Strep pneumoniae antigens were negative. CTA chest was negative. CTA abd/pelvis was negative. Swallow study was failed and patient placed on modified diet. Patient was treated for sepsis secondary to suspected aspiration pneumonia. Patient was treated with azithromycin, zosyn, and vancomycin. Also treated for COPD exacerbation. Abdominal pain resolved. Cardiology was consulted for elevated troponin and determined that patient did not have an ACS. Nasal MRSA screen was positive. CXR showed slightly increased perihilar opacities, vascular congestion vs viral infection. There was no evidence of pneumonia. BNP 93. At this point, patients sepsis believed to be secondary to suspected MRSA bronchitis. Azithromycin, vancomycin, and zosyn were discontinued , and patient was started on PO doxycycline. Also suspected fluid overload and started Lasix. Echo was normal with LVEF 65%. One out of 2 blood cultures was positive for micrococcus, other blood culture was negative. Sputum culture showed normal respiratory gilmar, no pathogens. Repeat CXR showed vascular congestion with linear interstitial opacities, likely atypical pneumonia. Patient was weaned off BiPap to 3L nasal cannula. Today, patient indicates that he is feeling better. Denies any difficulty breathing and indicates coughing is improved. Patient denies chest pain. Denies sore throat, congestion, runny nose , and headache. Denies fever, chills. Denies swelling. Denies nausea/vomiting. Denies urinary symptoms. - Time Spent with Patient Total time spent providing and/or coordinating discharge services: Greater than 30 minutes (42 minutes) - Discharge Medications Prescriptions: Doxycycline 100 mg PO BID #12 capsule Furosemide [Lasix] 40 mg PO DAILY #30 tablet Potassium Chloride 40 meq PO DAILY #30 tab.er.prt predniSONE [PredniSONE] See Taper PO DAILY #37 tablet Home Medications: Amlodipine Besylate 10 mg PO 0800 05/24/17 [History] Aspirin 81 mg PO 0800 05/24/17 [History] Acetaminophen [Tylenol] 650 mg PO TID PRN 10/08/17 [History] Atorvastatin Calcium [Lipitor] 80 mg PO HS 10/08/17 [History] Bisacodyl [Dulcolax] 10 mg RC DAILY PRN 10/08/17 [History] Carvedilol 12.5 mg PO BID 10/08/17 [History] Docusate Sodium [Dok] 100 mg PO BID 10/08/17 [History] Lisinopril [Zestril] 20 mg PO 0800 10/08/17 [History] Magnesium Hydroxide [Milk of Magnesia] 30 ml PO DAILY PRN 10/08/17 [History] Multivit-Min/FA/Lycopen/Lutein [A Thru Z Select Men 50+ Tablet] 1 tab PO DAILY 10/08/17 [History] Sennosides [Senna] 8.6 mg PO 0800 10/08/17 [History] Tramadol HCl [Ultram] 50 mg PO Q6H PRN 10/08/17 [History] hydroCHLOROthiazide [Hydrochlorothiazide] 12.5 mg PO 0800 10/08/17 [History] Fluticasone/Vilanterol [Breo Ellipta 200-25 Mcg INH] 1 each IH DAILY 04/27/18 [ History] Ammonium Lactate [Rosa Isela-Hydrolac] 1 appl TP DAILY 04/29/18 [History] LevETIRAcetam [Keppra] 500 mg PO Q12H 04/29/18 [History] Doxycycline 100 mg PO BID #12 capsule 05/05/18 [Rx] Furosemide [Lasix] 40 mg PO DAILY #30 tablet 05/05/18 [Rx] Potassium Chloride 40 meq PO DAILY #30 tab.er.prt 05/05/18 [Rx] predniSONE [PredniSONE] See Taper PO DAILY #37 tablet 05/05/18 [Rx] Allergies/Adverse Reactions: 3 Allergy/AdvReac Type Severity Reaction Status Date / Time No Known Allergies Allergy Verified 04/29/18 14:21 Date of admission: 04/30/18 15:42 Primary care physician: Tio Lincoln Discharging clinician: Tanisha Dunbar Anticipated date of discharge: 05/06/18 - Constitutional Vitals: Temp Pulse Resp BP Pulse Ox 98.1 F 58 18 131/78 90 05/05/18 07:04 05/05/18 07:04 05/05/18 11:29 05/05/18 07:04 05/05/18 11:29 General appearance: Present: cooperative, mild distress (SOB/dyspnea), A&O X 3, pleasant, obese, answers questions appropriately Exam: General: Alert and oriented. No acute distress. Well-developed. Head: atraumatic, normocephalic. Eye: pupils equal, round, and reactive. Sclera anicteric. EOMI. ENT: Moist mucus membrane. Normal oropharynx. Neck: supple, trachea midline. Lungs: Diffuse rhonchi bilaterally. No wheezes. No respiratory distress. No accessory muscle use. Cardiovascular: Normal S1 & S2. No rubs or gallops. No JVD. Pulse regular. Abdomen: Soft. Normal bowel sounds. Nondistended, no rigidity. Nontender. Extremities: 1+ pitting edema right lower extremity, no edema in left. No deformity or tenderness, no joint swelling or clubbing. Skin: warm, dry, and intact. Rash on bilateral arms. Neurological: Right sided weakness. Aphasia. Normal comprehension. - Patient Status Disposition: Transfer SNF Condition: Fair - Discharge Instructions Follow Up With: Tio Lincoln [Primary Care Provider] - Additional Instructions: Patient to remain on 3L oxygen nasal cannula for 1 month. Reassess after 1 month with followup with PCP. - Diet and Activity Activity: increase activity as tolerated Diet: other (Modified diet ) <Bryon Can - Last Filed: 05/05/18 15:09> Date of Encounter: 05/05/18 - Discharge Diagnosis (1) History of CVA (cerebrovascular accident) Status: Resolved (2) DVT prophylaxis Status: Acute (3) Sepsis Status: Acute Qualifiers: Sepsis type: sepsis due to unspecified organism Qualified Code(s): A41.9 - Sepsis, unspecified organism (4) Seizure Status: Resolved (5) Abdominal pain Status: Resolved Qualifiers: Abdominal location: right lower quadrant Qualified Code(s): R10.31 - Right lower quadrant pain (6) Chest pain Status: Resolved Qualifiers: Chest pain type: other chest pain Qualified Code(s): R07.89 - Other chest pain; R07.8 - Other chest pain (7) COPD exacerbation Status: Acute (8) HLD (hyperlipidemia) Status: Chronic Qualifiers: Hyperlipidemia type: pure hypercholesterolemia Qualified Code(s): E78.00 - Pure hypercholesterolemia, unspecified; E78.0 - Pure hypercholesterolemia (9) HTN (hypertension) Status: Chronic Qualifiers: Hypertension type: essential hypertension Qualified Code(s): I10 - Essential (primary) hypertension (10) Bronchitis Status: Suspected (11) Fluid overload Status: Suspected Hospital course: Mr. Hicks is a 62 year old male - Time Spent with Patient Total time spent providing and/or coordinating discharge services: Date of admission: 04/30/18 15:42 Primary care physician: Tio Lincoln - Constitutional Vitals: Temp Pulse Resp BP Pulse Ox 98.1 F 58 18 131/78 90 05/05/18 07:04 05/05/18 07:04 05/05/18 11:29 05/05/18 07:04 05/05/18 11:29 - Attending Attestation I performed an independent interview and exam of this patient. I agree with the findings, assessment, and plan of Dr. Dunbar, internal medicine analysis internship. Pt has improved significantly. He continues on doxycycline for suspected MRSA bronchitis. He has diuresed well with regards to his acute on chronic diastolic CHF. He still has chronic hypoxemic respiratory failure for which he will likely be discharged on oxygen at 3 L per nasal cannula. We will likely watch him overnight to see if he needs BiPAP still. Patient otherwise is stable for transfer once arrangements are made and the final decision on BiPAP is determined. 41 minutes spent on discharge and coordination of care. Gen Exp aphasia, right hemiparesis Neck supple Lung crackles at bases Ht rrr abd soft +BS, NT Ext tr edema
[2018-05-05] MEDS: *HR* Enoxaparin 40 MG/0.4 ML SYRINGE SQ SCH (17:23)
[2018-05-06] MEDS: levETIRAcetam 250 MG TABLET PO SCH ×2 (00:16→08:41)
[2018-05-06] MEDS: Doxycycline 100 MG CAPSULE PO SCH ×2 (00:16→08:41)
[2018-05-06] MEDS: Ipratropium/Albuterol Neb 3 ML IH SCH ×4 (05:19→16:04)
[2018-05-06] MEDS: Acetylcysteine 10% 2 ML INHSOL IH SCH ×3 (05:19→16:04)
[2018-05-06 07:17] VITALS: BP 140/77
--- NOTE | 2018-05-06 08:32 | Internal Med Progress Note ---
<Tanisha Dunbar - Last Filed: 05/06/18 08:30> Hospitalist Progress Note - Encounter Date of Encounter: 05/06/18 Time of Encounter: 07:40 - Subjective Interval History: Patient seen and examined. No acute events overnight. Patient is resting comfortably in bed. Patient indicates that he is feels good. Denies any complaints. And indicates that hes ready to go home. Denies any difficulty breathing and indicates coughing is improved. Patient denies chest pain. Denies abdominal pain. Denies fever, chills. Denies swelling. Denies nausea/vomiting, bowel changes. Denies urinary symptoms. Anticipate discharge today back to his custodial. - Exam Vitals: Temp Pulse Resp BP Pulse Ox 97.8 F 62 16 140/77 96 05/06/18 07:16 05/06/18 07:16 05/06/18 07:16 05/06/18 07:16 05/06/18 07:16 Exam: General: Alert and oriented. No acute distress. Well-developed. Head: atraumatic, normocephalic. Eye: pupils equal, round, and reactive. Sclera anicteric. EOMI. ENT: Moist mucus membrane. Normal oropharynx. Neck: supple, trachea midline. Lungs: CTAB. No rhonchi, rales, or wheezes. No respiratory distress. No accessory muscle use. Cardiovascular: Normal S1 & S2. No rubs or gallops. No JVD. Pulse regular. Abdomen: Soft. Normal bowel sounds. Nondistended, no rigidity. Nontender. Extremities: No deformity, no edema or tenderness, no joint swelling or clubbing. Skin: warm, dry, and intact. Rash on bilateral arms. Neurological: Right sided weakness. Aphasia. Normal comprehension. - Assessment and Plan (1) Sepsis Status: Resolved Assessment and Plan: On admission, met 3 SIRS criteria with tachycardia, tachypnea, and leukocytosis. Source: suspect MRSA bronchitis vs aspiration pneumonia. Lactic acid normal. One out of 2 of blood cultures drawn 04/29 showed micrococcus. Other was negative. Likely contaminant. CTA chest was negative. CTA abdomen was negative. Resolved. (2) Bronchitis Status: Suspected Assessment and Plan: Causative organism: suspect MRSA. Patient presented with cough, SOB, fever. Resides in custodial. History of CVA with aphasia and right-sided weakness. Swallow study failed - modified diet. Legionella and strep pneumoniae antigens are negative. Nasal MRSA screen is positive. Respiratory viral panel is negative. Respiratory bacterial panel is negative. Sputum culture showed normal respiratory gilmar. CTA chest showed no focal consolidation. CXR showed slightly increased perihilar opacities, vascular congestion vs viral infection. No evidence of pneumonia. Azithromycin, vancomycin, and zosyn discontinued. Continue doxycycline PO (day 5) for 10 day course. (3) COPD exacerbation Status: Acute Assessment and Plan: Patient presented with SOB/dyspnea. History of smoking 3 PPD, quit May 2017. History of COPD, not on home oxygen. Improved. Weaned from BiPap to 3L nasal cannula. Patient to be discharged with 3L home O2. Overnight pulse ox study showed patient needs BiPAP on discharge. Continue DuoNebs q4h scheduled. Continue Mucinex for cough. Was on Prednisone 60mg daily PO. Start taper. (4) Chest pain Status: Resolved Assessment and Plan: At admission, elevated troponin 0.28. Trended down. No acute EKG changes. TTE showed normal LVEF. CTA chest was negative. Chest pain resolved. Cardiology consulted and determined not ACS. Continue to monitor. (5) Abdominal pain Status: Resolved Assessment and Plan: Patient complained of RLQ abdominal pain. CTA abdomen was negative. Resolved. (6) History of CVA (cerebrovascular accident) Status: Resolved Assessment and Plan: Hx of CVA in May 2017 w/residual right-sided weakness and aphasia. Monitor pt. for signs of neurologic changes. PT/OT consults ordered to assess for rehabilitation needs. (7) Seizure Status: Resolved Assessment and Plan: Hx of seizure over the weekend when admitted to the hospital. Pt. denies previous seizures or hx of taking anti-seizure medications. Monitor and continue Keppra. (8) HTN (hypertension) Status: Chronic Assessment and Plan: Hx of chronic HTN. Monitor patient and vital signs. Continue home meds: amlodipine, carvedilol, lisinopril, and hydrochlorothiazide. (9) HLD (hyperlipidemia) Status: Chronic Assessment and Plan: Hx of chronic HLD. Continue Lipitor. (10) DVT prophylaxis Status: Acute Assessment and Plan: Lovenox. (11) Fluid overload Status: Suspected Assessment and Plan: Patient presented with SOB/dyspnea. BNP normal. CXR showed slightly increased perihilar opacities, vascular congestion vs viral infection. No evidence of pneumonia. Continue Lasix 40 daily. Monitor labs for electrolyte changes. - Time Spent with Patient Total time spent is greater than 50% in coordination of care (as documented) at patient's floor/unit and/or counseling patient: Internal Medicine: Result - Labs CBC & Chem 7: 05/05/18 04:05 05/05/18 04:05 - ABG Interpretation ABG results: ABG ABG pH 7.45 pH Units (7.32-7.45) 04/29/18 16:43 ABG pCO2 37 mmHg (35-45) 04/29/18 16:43 ABG pO2 68 mmHg (85-104) L 04/29/18 16:43 ABG O2 Saturation 94 % (95-98) L 04/29/18 16:43 PT/INR, D-dimer PT 10.8 Seconds (9.4-12.1) 04/30/18 01:47 - Impressions Impressions Chest X-Ray 05/05/18 08:05 IMPRESSION: 1. Vascular congestion with linear interstitial opacities involving the lower lung zones. These findings likely reflect an atypical pneumonia. Follow-up to resolution is recommended. D/ / Jerry Malik MD / Jerry Malik MD Interpreting Provider: Jerry Mlaik MD Consult Discharge Plan - Plan Instructions: Furosemide (By mouth), Doxycycline (By mouth), Prednisone (By mouth), Potassium Chloride (By mouth) Additional Instructions: Patient to remain on 3L oxygen nasal cannula for 1 month. Reassess after 1 month with followup with PCP. Referrals: Tio Lincoln [Primary Care Provider] - Prescriptions: Doxycycline 100 mg PO BID #12 capsule Furosemide [Lasix] 40 mg PO DAILY #30 tablet Potassium Chloride 40 meq PO DAILY #30 tab.er.prt predniSONE [PredniSONE] See Taper PO DAILY #37 tablet <Waleska Wagner - Last Filed: 05/06/18 18:17> Hospitalist Progress Note - Encounter Date of Encounter: 05/06/18 - Exam Vitals: Temp Pulse Resp BP Pulse Ox 97.8 F 62 18 140/77 94 05/06/18 07:16 05/06/18 07:16 05/06/18 16:05 05/06/18 07:16 05/06/18 16:05 - Assessment and Plan (1) History of CVA (cerebrovascular accident) Status: Resolved (2) DVT prophylaxis Status: Acute (3) Sepsis Status: Resolved (4) Seizure Status: Resolved (5) Abdominal pain Status: Resolved (6) Chest pain Status: Resolved (7) COPD exacerbation Status: Acute (8) HLD (hyperlipidemia) Status: Chronic (9) HTN (hypertension) Status: Chronic (10) Bronchitis Status: Suspected (11) Fluid overload Status: Suspected - Time Spent with Patient Total time spent is greater than 50% in coordination of care (as documented) at patient's floor/unit and/or counseling patient: Internal Medicine: Result - Labs CBC & Chem 7: 05/05/18 04:05 05/05/18 04:05 - ABG Interpretation ABG results: ABG ABG pH 7.45 pH Units (7.32-7.45) 04/29/18 16:43 ABG pCO2 37 mmHg (35-45) 04/29/18 16:43 ABG pO2 68 mmHg (85-104) L 04/29/18 16:43 ABG O2 Saturation 94 % (95-98) L 04/29/18 16:43 PT/INR, D-dimer PT 10.8 Seconds (9.4-12.1) 04/30/18 01:47 - Attending Attestation I examined this patient and my medical decision-making was reviewed with the Resident Physician Dr. Dunbar. I agree with the documented findings, disposition and treatment plan as described except to the extent set forth below. Mr. Hicks is a 62 y/o M with known COPD, CA with residual rt sideded weakness and aphasia, HTN, HLD pt admitted here for COPD exacerbation and acute bronchitis. Pt was started on broad spec abx and later switched to PO Doxy. His symptoms improved. He is back to baseline. Reviewed his ABG, does not qualify for BiPAP. However he may get benefit with sleep study, so asked the pt talk to his PCP for possible out pt sleep study. <Tanisha Dunbar - Last Filed: 05/06/18 08:30> (1) Sepsis Qualifiers: Sepsis type: sepsis due to unspecified organism Qualified Code(s): A41.9 - Sepsis, unspecified organism (4) Chest pain Qualifiers: Chest pain type: other chest pain Qualified Code(s): R07.89 - Other chest pain; R07.8 - Other chest pain (5) Abdominal pain Qualifiers: Abdominal location: right lower quadrant Qualified Code(s): R10.31 - Right lower quadrant pain (8) HTN (hypertension) Qualifiers: Hypertension type: essential hypertension Qualified Code(s): I10 - Essential (primary) hypertension (9) HLD (hyperlipidemia) Qualifiers: Hyperlipidemia type: pure hypercholesterolemia Qualified Code(s): E78.00 - Pure hypercholesterolemia, unspecified; E78.0 - Pure hypercholesterolemia <Waleska Wagner - Last Filed: 05/06/18 18:17> (3) Sepsis Qualifiers: Sepsis type: sepsis due to unspecified organism Qualified Code(s): A41.9 - Sepsis, unspecified organism (5) Abdominal pain Qualifiers: Abdominal location: right lower quadrant Qualified Code(s): R10.31 - Right lower quadrant pain (6) Chest pain Qualifiers: Chest pain type: other chest pain Qualified Code(s): R07.89 - Other chest pain; R07.8 - Other chest pain (8) HLD (hyperlipidemia) Qualifiers: Hyperlipidemia type: pure hypercholesterolemia Qualified Code(s): E78.00 - Pure hypercholesterolemia, unspecified; E78.0 - Pure hypercholesterolemia (9) HTN (hypertension) Qualifiers: Hypertension type: essential hypertension Qualified Code(s): I10 - Essential (primary) hypertension
[2018-05-06] MEDS: Sennosides 8.6 MG TABLET PO SCH (08:41)
[2018-05-06] MEDS: amLODIPine 5 MG TABLET PO SCH (08:41)
[2018-05-06] MEDS: predniSONE 20 MG TABLET PO SCH (08:41)
[2018-05-06] MEDS: Aspirin Enteric Coated 81 MG Tablet PO SCH (08:42)
[2018-05-06] MEDS: hydroCHLOROthiazide 25 MG TABLET PO SCH (08:42)
[2018-05-06] MEDS: Lisinopril 20 MG TABLET PO SCH (08:47)
[2018-05-06] MEDS: Budesonide/Formoterol 160/4.5 1 PUFF INH IH SCH (08:58)
--- NOTE | 2018-05-06 16:10 | Physician Discharge Referral ---
ExtendedCare Referral Info Transfer To: [facility] Provider in Charge: Dr. Wagner Provider in Charge after Transfer: PCP Institutional Level of Care: Skilled - Diagnosis (1) Sepsis Priority: Primary Status: Resolved (2) Bronchitis Priority: Primary Status: Suspected (3) COPD exacerbation Priority: Primary Status: Acute (4) Fluid overload Priority: Primary Status: Suspected (5) Chest pain Priority: Secondary Status: Resolved (6) Abdominal pain Priority: Secondary Status: Resolved (7) History of CVA (cerebrovascular accident) Priority: Secondary Status: Resolved (8) Seizure Priority: Secondary Status: Resolved (9) HTN (hypertension) Priority: Secondary Status: Chronic (10) HLD (hyperlipidemia) Priority: Secondary Status: Chronic (11) DVT prophylaxis Priority: Secondary Status: Acute - Transfer Medications Prescriptions: Doxycycline 100 mg PO BID #12 capsule Furosemide [Lasix] 40 mg PO DAILY #30 tablet Potassium Chloride 40 meq PO DAILY #30 tab.er.prt predniSONE [PredniSONE] See Taper PO DAILY #37 tablet Home Medications: Amlodipine Besylate 10 mg PO 0800 05/24/17 [History] Aspirin 81 mg PO 0800 05/24/17 [History] Acetaminophen [Tylenol] 650 mg PO TID PRN 10/08/17 [History] Atorvastatin Calcium [Lipitor] 80 mg PO HS 10/08/17 [History] Bisacodyl [Dulcolax] 10 mg RC DAILY PRN 10/08/17 [History] Carvedilol 12.5 mg PO BID 10/08/17 [History] Docusate Sodium [Dok] 100 mg PO BID 10/08/17 [History] Lisinopril [Zestril] 20 mg PO 0800 10/08/17 [History] Magnesium Hydroxide [Milk of Magnesia] 30 ml PO DAILY PRN 10/08/17 [History] Multivit-Min/FA/Lycopen/Lutein [A Thru Z [employer] Men 50+ Tablet] 1 tab PO DAILY 10/08/17 [History] Sennosides [Senna] 8.6 mg PO 0800 10/08/17 [History] Tramadol HCl [Ultram] 50 mg PO Q6H PRN 10/08/17 [History] hydroCHLOROthiazide [Hydrochlorothiazide] 12.5 mg PO 0800 10/08/17 [History] Fluticasone/Vilanterol [Breo Ellipta 200-25 Mcg INH] 1 each IH DAILY 04/27/18 [ History] Ammonium Lactate [Rosa Isela-Hydrolac] 1 appl TP DAILY 04/29/18 [History] LevETIRAcetam [Keppra] 500 mg PO Q12H 04/29/18 [History] Doxycycline 100 mg PO BID #12 capsule 05/05/18 [Rx] Furosemide [Lasix] 40 mg PO DAILY #30 tablet 05/05/18 [Rx] Potassium Chloride 40 meq PO DAILY #30 tab.er.prt 05/05/18 [Rx] predniSONE [PredniSONE] See Taper PO DAILY #37 tablet 05/05/18 [Rx] Allergies/Adverse Reactions: 3 Allergy/AdvReac Type Severity Reaction Status Date / Time No Known Allergies Allergy Verified 04/29/18 14:21 - Respiratory Orders Smoking Cessation: Smoking cessation has been advised. For more information, call the [employer] [place] [employer] Quit Line at 5-493-XUKQ-NOW. - Ancillary Orders May use pressure relief devices daily prn - Advance Directives Code Status: DNR-Arrest/Don't Intubate - Rehabiliation Orders Rehab Potential: Good Rehab Orders: Evaluation for Physical Therapy, Evaluation for Occupational Therapy - Treatments Skin tear care topically daily PRN per policy - Diet Orders No Added Salt (RUSLAN) (Failed swallow study - NTL recommended) CERTIFICATION: I certify that the transfer of the above named patient to an Extended Care Facility is necessary for the continuing treatment of the diagnosis listed. The above information is true and accurate reflection of patient's current condition. Confidential - Redisclosure prohibited without a patient's written consent.
== END 2018-05-06 18:01 | DRG 720 ==
LOC: EMEROOARM 08:25 → 2SOUTHHOLD 08:25 → SUATTDRO 04-30 15:42 → 2NENU 05-01 18:06
PROVIDERS: ADMIT Internal Medicine; ATTEND Family Medicine

== ENCOUNTER 2019-04-30 23:20 | Inpatient (IN) ==
[2019-05-01] MEDS ORDERED: Furosemide 40 MG/4 ML VIAL IVP ONE (00:15)
[2019-05-01 00:30] LABS: Basophils % 0.4 %; Eosinophils # 0.2 K/mcL (0.0-0.6); Eosinophils % 2.9 %; Hematocrit 34.8 % (37.5-50.1); Hemoglobin 11.1 g/dL (12.9-16.9); Immature Granulocytes % 0.6 % (0-4); Lymphocytes # 0.6 K/mcL (0.6-4.6); Lymphocytes % 8.5 %; Mean Corpuscular HGB Conc 31.9 g/dL (31.6-35.5); Mean Corpuscular Hemoglobin 31.6 pg (28.0-33.3); Mean Corpuscular Volume 99.1 fL (83.0-100.0); Mean Platelet Volume 9.4 fL (9.4-12.4); Monocytes # 0.9 K/mcL (0.0-1.3); Monocytes % 12.9 %; Neutrophils # 5.2 K/mcL (1.6-8.9); Platelet Count 228 K/mcL (140-400); Red Blood Count 3.51 M/mcL (4.19-5.50); Red Cell Distribution Width 13.6 % (11.5-14.5); Segmented Neutrophils % 74.7 %
[2019-05-01 00:38] LABS: Prothrombin Time 11.5 Seconds (9.4-12.1)
[2019-05-01 00:41] LABS: Activated Partial Thrombo Time 27.7 Seconds (26.0-36.0)
[2019-05-01 00:45] LABS: Bilirubin,Urine Negative (Negative); Blood,Urine Trace (Negative); Clarity,Urine Clear (Clear); Color,Urine Yellow (Yellow); Glucose,Urine (UA) Normal (Normal); Ketones,Urine Negative (Negative); Leukocyte Esterase,Urine Negative (Negative); Nitrite,Urine Negative (Negative); PH,Urine 5.5 pH Units (5.0-8.0); Protein,Urine Negative (Neg-Trace); Specific Gravity,Urine 1.022 (1.010-1.025); Urobilinogen,Urine Normal (Normal)
[2019-05-01 00:49] LABS: BUN/Creatinine Ratio 21 (6-26); Blood Urea Nitrogen 21 mg/dL (8-23); Calcium 9.2 mg/dL (8.6-10.3); Carbon Dioxide 37 mEq/L (23-29); Chloride 92 mEq/L (98-107); Glucose 131 mg/dL (70-105); Magnesium 1.9 mg/dL (1.6-2.6); Osmolality,Calculated 291 (280-300); Phosphorous 3.9 mg/dL (2.7-4.5); Potassium 3.9 mEq/L (3.5-5.1); Sodium 138 mEq/L (136-145); eGFR For African Americans > 60 (> 60); eGFR For Non-African Americans > 60 (> 60)
[2019-05-01 00:55] LABS: Troponin I 0.36 ng/mL (< 0.04)
[2019-05-01] MEDS ORDERED: Aspirin 325 MG TABLET PO ONE (00:56)
[2019-05-01 01:00] LABS: Hyaline Casts,Urine Few per lpf (None-Few)
[2019-05-01 01:01] LABS: Mucus,Urine Few (Few)
[2019-05-01 01:02] LABS: WBC,Urine 0-3 per hpf (0-3)
[2019-05-01 01:03] LABS: Bacteria,Urine None Seen per hpf (None-Few)
[2019-05-01] MEDS ORDERED: Isovue-370 500 ML BOTTLE IVP ONE (02:19)
[2019-05-01] MEDS ORDERED: Ondansetron ODT 4 MG TAB.RAPDIS PO PRN (02:20)
[2019-05-01] MEDS ORDERED: Acetaminophen 325 MG TABLET PO PRN (02:20)
[2019-05-01] MEDS ORDERED: MOM Conc 10 ML UD.LIQ PO PRN (02:20)
[2019-05-01 05:36] LABS: Albumin 3.6 g/dL (3.5-5.7); Albumin/Globulin Ratio 1.1 (1.1-2.2); Bilirubin,Direct 0.1 mg/dL (0.0-0.2); Bilirubin,Indirect 0.3 mg/dL (0.0-1.2); Bilirubin,Total 0.4 mg/dL (0.3-1.0); Globulin 3.2 g/dL (2.4-3.5); Total Protein 6.8 g/dL (6.4-8.9)
[2019-05-01] MEDS: *HR* Heparin 5,000 UNIT/ML VIAL SQ SCH ×2 (05:38→18:15)
[2019-05-01] MEDS: Gabapentin 300 MG CAPSULE PO SCH ×2 (08:26→20:59)
[2019-05-01] MEDS: Bisacodyl 10 MG RECTAL SUPPOSITORY RC SCH (08:28)
[2019-05-01] MEDS: levETIRAcetam 250 MG TABLET PO SCH ×2 (08:28→20:58)
[2019-05-01] MEDS: tiZANidine 4 MG TABLET PO SCH ×3 (08:29→20:59)
[2019-05-01] MEDS: Multivit/Ca/Min/Fe/FA 1 TAB TABLET PO SCH (08:29)
[2019-05-01] MEDS: Lactobacillus 1 EACH CAP.SPRINK PO SCH (08:29)
[2019-05-01] MEDS: Ascorbic Acid 500 MG TABLET PO SCH (08:29)
[2019-05-01] MEDS: amLODIPine 5 MG TABLET PO SCH (08:29)
[2019-05-01] MEDS: Aspirin Enteric Coated 81 MG Tablet PO SCH (08:29)
[2019-05-01] MEDS: Sennosides 8.6 MG TABLET PO SCH (08:31)
[2019-05-01] MEDS ORDERED: metOLazone 2.5 MG TABLET PO SCH (09:00)
[2019-05-01] MEDS ORDERED: Furosemide 40 MG TABLET PO SCH (09:00)
[2019-05-01] MEDS ORDERED: (Breo Ellipta 200-25 Mcg Inh) IH SCH (10:00)
[2019-05-01] MEDS: Budesonide/Formoterol 160/4.5 1 PUFF INH IH SCH ×3 (11:18→22:32)
[2019-05-01 11:44] LABS: Adenovirus Not Detected (Not Detect); Bordetella Pertussis Not Detected (Not Detect); Chlamydophila pneumoniae Not Detected (Not Detect); Coronavirus 229E Not Detected (Not Detect); Coronavirus HKU1 Not Detected (Not Detect); Coronavirus NL63 Not Detected (Not Detect); Coronavirus OC43 Not Detected (Not Detect); Human Metapneumovirus Not Detected (Not Detect); Human Rhinovirus/Enterovirus Not Detected (Not Detect); Influenza A Subtype 2009 H1 Not Detected (Not Detect); Influenza A Untypeable Not Detected (Not Detect); Influenza B Not Detected (Not Detect); Mycoplasma pneumoniae Not Detected (Not Detect); Parainfluenza Virus 1 Not Detected (Not Detect); Parainfluenza Virus 2 Not Detected (Not Detect); Parainfluenza Virus 3 Not Detected (Not Detect); Parainfluenza Virus 4 Not Detected (Not Detect); Respiratory Syncytial Virus Not Detected (Not Detect)
[2019-05-01] MEDS: Ampicillin/Sulbactam 1,500 MG in 0.9 % Sodium Chloride Mini Bag 100 ML IVPB SCH ×2 (13:33→18:14)
[2019-05-01] MEDS ORDERED: Perflutren Lipid Microsphere 1.3 ML in 0.9 % Sodium Chloride 8.7 ML IVP ONE (15:10)
[2019-05-01] MEDS: Acetaminophen 325 MG TABLET PO PRN (16:00)
[2019-05-01] MEDS: Furosemide 40 MG TABLET PO SCH (18:15)
[2019-05-01] MEDS: cefTRIAXone 1,000 MG in Water for inj. (sterile) 10 ML IVP SCH (20:59)
[2019-05-01] MEDS: MetroNIDAZOLE 500 MG/100 ML 500 MG/100 ML BAG IVPB SCH (21:00)
[2019-05-01] MEDS: Ibuprofen 400 MG TABLET PO PRN (21:16)
[2019-05-01] MEDS: Azithromycin 500 MG in 0.9 % Sodium Chloride 250 ML IVPB SCH (22:34)
[2019-05-02] MEDS: MetroNIDAZOLE 500 MG/100 ML 500 MG/100 ML BAG IVPB SCH ×3 (00:15→15:37)
[2019-05-02] MEDS: Ipratropium/Albuterol Neb 3 ML IH PRN ×2 (03:30→15:54)
[2019-05-02 04:55] LABS: Basophils % 0.3 %; Eosinophils # 0.2 K/mcL (0.0-0.6); Eosinophils % 2.5 %; Hematocrit 33.7 % (37.5-50.1); Hemoglobin 10.4 g/dL (12.9-16.9); Immature Granulocytes % 0.3 % (0-4); Lymphocytes # 0.8 K/mcL (0.6-4.6); Lymphocytes % 10.7 %; Mean Corpuscular HGB Conc 30.9 g/dL (31.6-35.5); Mean Corpuscular Volume 100.6 fL (83.0-100.0); Monocytes # 1.2 K/mcL (0.0-1.3); Monocytes % 15.8 %; Neutrophils # 5.1 K/mcL (1.6-8.9); Platelet Count 217 K/mcL (140-400); Red Blood Count 3.35 M/mcL (4.19-5.50); Red Cell Distribution Width 13.2 % (11.5-14.5); Segmented Neutrophils % 70.4 %; White Blood Count 7.3 K/mcL (4.3-11.1)
[2019-05-02 05:10] LABS: BUN/Creatinine Ratio 26 (6-26); Blood Urea Nitrogen 25 mg/dL (8-23); Carbon Dioxide 42 mEq/L (23-29); Chloride 91 mEq/L (98-107); Glucose 126 mg/dL (70-105); Osmolality,Calculated 294 (280-300); Potassium 3.9 mEq/L (3.5-5.1); Sodium 139 mEq/L (136-145); eGFR For African Americans > 60 (> 60); eGFR For Non-African Americans > 60 (> 60)
[2019-05-02] MEDS: Acetaminophen 325 MG TABLET PO PRN (05:43)
[2019-05-02] MEDS: *HR* Heparin 5,000 UNIT/ML VIAL SQ SCH ×2 (05:43→18:39)
[2019-05-02] MEDS ORDERED: Acetaminophen IV 1,000 MG/100 ML INFUS..BTL IVPB ONE ×3 (05:55→22:34)
[2019-05-02] MEDS: Budesonide/Formoterol 160/4.5 1 PUFF INH IH SCH ×2 (07:47→22:53)
[2019-05-02 10:25] LABS: ABG Base Excess 20 mEq/L (-2 to 3); ABG HCO3 49 mEq/L (21-27); ABG Oxygen Saturation 91 % (95-98); ABG PCO2 79 mmHg (35-45); ABG PO2 67 mmHg (85-104); ABG TCO2 > 50 mEq/L (20-26); Blood Gas Modality BiLevel; Blood Gas VT 445 cc
[2019-05-02] MEDS ORDERED: Furosemide 40 MG/4 ML VIAL IVP ONE (11:06)
[2019-05-02] MEDS: cefTRIAXone 1,000 MG in Water for inj. (sterile) 10 ML IVP SCH (11:14)
[2019-05-02] MEDS: Aspirin Enteric Coated 81 MG Tablet PO SCH (11:22)
[2019-05-02] MEDS: Bisacodyl 10 MG RECTAL SUPPOSITORY RC SCH (11:23)
[2019-05-02] MEDS: Lactobacillus 1 EACH CAP.SPRINK PO SCH (11:23)
[2019-05-02] MEDS: Ascorbic Acid 500 MG TABLET PO SCH (11:24)
[2019-05-02] MEDS: Sennosides 8.6 MG TABLET PO SCH (11:24)
[2019-05-02] MEDS: Multivit/Ca/Min/Fe/FA 1 TAB TABLET PO SCH (11:24)
[2019-05-02] MEDS: Acetaminophen 325 MG TABLET PO SCH (18:39)
[2019-05-02] MEDS: Azithromycin 500 MG in 0.9 % Sodium Chloride 250 ML IVPB SCH (19:30)
[2019-05-02] MEDS ORDERED: Ibuprofen 600 MG TABLET PO ONE (22:43)
[2019-05-02] MEDS: Nystatin SUSP 5 ML UD.LIQ PO SCH (22:47)
[2019-05-03] MEDS: Acetaminophen 325 MG TABLET PO SCH ×4 (00:25→17:57)
[2019-05-03] MEDS: MetroNIDAZOLE 500 MG/100 ML 500 MG/100 ML BAG IVPB SCH ×3 (00:53→18:32)
[2019-05-03] MEDS ORDERED: Acetaminophen IV 1,000 MG/100 ML INFUS..BTL IVPB ONE (01:00)
[2019-05-03 03:46] LABS: Basophils % 0.5 %; Eosinophils # 0.3 K/mcL (0.0-0.6); Eosinophils % 5.3 %; Hematocrit 32.3 % (37.5-50.1); Hemoglobin 10.2 g/dL (12.9-16.9); Immature Granulocytes % 0.5 % (0-4); Lymphocytes # 0.7 K/mcL (0.6-4.6); Lymphocytes % 11.8 %; Mean Corpuscular HGB Conc 31.6 g/dL (31.6-35.5); Mean Corpuscular Hemoglobin 31.6 pg (28.0-33.3); Mean Platelet Volume 10.1 fL (9.4-12.4); Monocytes # 0.9 K/mcL (0.0-1.3); Monocytes % 15.8 %; Neutrophils # 3.8 K/mcL (1.6-8.9); Platelet Count 235 K/mcL (140-400); Red Blood Count 3.23 M/mcL (4.19-5.50); Red Cell Distribution Width 12.8 % (11.5-14.5); Segmented Neutrophils % 66.1 %; White Blood Count 5.7 K/mcL (4.3-11.1)
[2019-05-03 04:09] LABS: Alanine Aminotransferase 28 Units/L (7-52); Albumin 3.4 g/dL (3.5-5.7); Albumin/Globulin Ratio 1.1 (1.1-2.2); Alkaline Phosphatase 66 Units/L (34-104); Aspartate Amino Transferase 28 Units/L (13-39); BUN/Creatinine Ratio 31 (6-26); Bilirubin,Total 0.4 mg/dL (0.3-1.0); Blood Urea Nitrogen 19 mg/dL (8-23); Calcium 9.1 mg/dL (8.6-10.3); Carbon Dioxide 43 mEq/L (23-29); Chloride 89 mEq/L (98-107); Globulin 3.1 g/dL (2.4-3.5); Glucose 117 mg/dL (70-105); Osmolality,Calculated 293 (280-300); Potassium 2.9 mEq/L (3.5-5.1); Sodium 140 mEq/L (136-145); Total Protein 6.5 g/dL (6.4-8.9); eGFR For African Americans > 60 (> 60); eGFR For Non-African Americans > 60 (> 60)
[2019-05-03] MEDS: *HR* Heparin 5,000 UNIT/ML VIAL SQ SCH ×2 (05:13→18:59)
[2019-05-03] MEDS ORDERED: Potassium Chloride 40 MEQ, Lidocaine 1% 2 ML in D5% in Water 500 ML IVPB ONE (07:30)
[2019-05-03] MEDS ORDERED: Furosemide 40 MG/4 ML VIAL IVP ONE (07:32)
[2019-05-03] MEDS: Budesonide/Formoterol 160/4.5 1 PUFF INH IH SCH ×2 (08:04→19:43)
[2019-05-03] MEDS: cefTRIAXone 1,000 MG in Water for inj. (sterile) 10 ML IVP SCH (08:46)
[2019-05-03] MEDS: Nystatin SUSP 5 ML UD.LIQ PO SCH ×4 (08:46→20:25)
[2019-05-03] MEDS: Aspirin Enteric Coated 81 MG Tablet PO SCH (08:47)
[2019-05-03] MEDS: Sennosides 8.6 MG TABLET PO SCH (08:47)
[2019-05-03] MEDS: Multivit/Ca/Min/Fe/FA 1 TAB TABLET PO SCH (08:47)
[2019-05-03] MEDS: Ascorbic Acid 500 MG TABLET PO SCH (08:47)
[2019-05-03] MEDS: Lactobacillus 1 EACH CAP.SPRINK PO SCH (08:47)
[2019-05-03] MEDS: Bisacodyl 10 MG RECTAL SUPPOSITORY RC SCH (08:47)
[2019-05-03] MEDS: amLODIPine 5 MG TABLET PO SCH (11:28)
[2019-05-03] MEDS: Azithromycin 500 MG in 0.9 % Sodium Chloride 250 ML IVPB SCH (17:57)
[2019-05-04] MEDS: Acetaminophen 325 MG TABLET PO SCH ×4 (00:50→19:56)
[2019-05-04] MEDS: MetroNIDAZOLE 500 MG/100 ML 500 MG/100 ML BAG IVPB SCH ×3 (00:51→18:48)
[2019-05-04] MEDS: *HR* Heparin 5,000 UNIT/ML VIAL SQ SCH ×2 (05:38→18:48)
[2019-05-04 06:53] LABS: Hematocrit 36.3 % (37.5-50.1); Hemoglobin 11.6 g/dL (12.9-16.9); Mean Corpuscular Hemoglobin 31.3 pg (28.0-33.3); Mean Corpuscular Volume 97.8 fL (83.0-100.0); Platelet Count 288 K/mcL (140-400); Red Blood Count 3.71 M/mcL (4.19-5.50); Red Cell Distribution Width 12.9 % (11.5-14.5); White Blood Count 6.5 K/mcL (4.3-11.1)
[2019-05-04 07:51] LABS: BUN/Creatinine Ratio 18 (6-26); Blood Urea Nitrogen 12 mg/dL (8-23); Calcium 9.9 mg/dL (8.6-10.3); Carbon Dioxide 44 mEq/L (23-29); Chloride 90 mEq/L (98-107); Glucose 135 mg/dL (70-105); Magnesium 2.2 mg/dL (1.6-2.6); Osmolality,Calculated 290 (280-300); Potassium 3.1 mEq/L (3.5-5.1); Sodium 139 mEq/L (136-145); eGFR For African Americans > 60 (> 60); eGFR For Non-African Americans > 60 (> 60)
[2019-05-04] MEDS: Budesonide/Formoterol 160/4.5 1 PUFF INH IH SCH ×2 (07:57→20:13)
[2019-05-04] MEDS: cefTRIAXone 1,000 MG in Water for inj. (sterile) 10 ML IVP SCH (09:36)
[2019-05-04] MEDS: Multivit/Ca/Min/Fe/FA 1 TAB TABLET PO SCH (09:38)
[2019-05-04] MEDS: Ascorbic Acid 500 MG TABLET PO SCH (09:38)
[2019-05-04] MEDS: Sennosides 8.6 MG TABLET PO SCH (09:38)
[2019-05-04] MEDS: Bisacodyl 10 MG RECTAL SUPPOSITORY RC SCH (09:54)
[2019-05-04] MEDS: Nystatin SUSP 5 ML UD.LIQ PO SCH ×4 (09:54→20:01)
[2019-05-04] MEDS: Lactobacillus 1 EACH CAP.SPRINK PO SCH (09:54)
[2019-05-04] MEDS ORDERED: Potassium Chloride 40 MEQ, Lidocaine 1% 2 ML in 0.9 % Sodium Chloride 500 ML IVPB ONE (10:02)
[2019-05-04] MEDS: amLODIPine 5 MG TABLET PO SCH (11:22)
[2019-05-04] MEDS: Aspirin Enteric Coated 81 MG Tablet PO SCH (11:24)
[2019-05-04] MEDS: Furosemide 40 MG/4 ML VIAL IVP SCH (11:25)
[2019-05-04] MEDS ORDERED: levETIRAcetam 1,000 MG in 0.9 % Sodium Chloride 100 ML IVPB ONE (17:33)
[2019-05-04] MEDS ORDERED: *HR* LORazepam 2 MG/ML VIAL IVP ONE (17:33)
[2019-05-04] MEDS ORDERED: *HR* LORazepam 2 MG/ML VIAL IVP STA (17:34)
[2019-05-04] MEDS ORDERED: *HR* Labetalol 20 MG/4 ML SYRINGE IVP PRN (17:53)
[2019-05-04] MEDS ORDERED: cefTRIAXone 1,000 MG in Water for inj. (sterile) 10 ML IVP ONE (18:04)
[2019-05-04 19:50] LABS: Procalcitonin 0.43 ng/mL (0.00-0.15)
[2019-05-04] MEDS: Ipratropium/Albuterol Neb 3 ML IH PRN (20:13)
[2019-05-04 20:14] LABS: Lyme Disease Total Antibody Negative (Negative)
[2019-05-04] MEDS ORDERED: *HR* LORazepam 2 MG/ML VIAL IVP PRN (22:12)
[2019-05-05] MEDS: Acetaminophen 325 MG TABLET PO SCH ×3 (01:14→10:59)
[2019-05-05] MEDS: MetroNIDAZOLE 500 MG/100 ML 500 MG/100 ML BAG IVPB SCH ×4 (01:22→17:10)
[2019-05-05] MEDS ORDERED: Acetaminophen IV 500 MG/50 ML INFUS..BTL IVPB ONE (01:32)
[2019-05-05] MEDS: Ipratropium/Albuterol Neb 3 ML IH PRN (04:11)
[2019-05-05] MEDS: *HR* Heparin 5,000 UNIT/ML VIAL SQ SCH ×2 (05:07→17:10)
[2019-05-05] MEDS: cefTRIAXone 2,000 MG in Water for inj. (sterile) 20 ML IVP SCH (05:08)
[2019-05-05] MEDS: levETIRAcetam 250 MG TABLET PO SCH (06:34)
[2019-05-05] MEDS: Gabapentin 300 MG CAPSULE PO SCH ×2 (06:34→22:06)
[2019-05-05] MEDS: Furosemide 40 MG TABLET PO SCH (06:34)
[2019-05-05] MEDS: tiZANidine 4 MG TABLET PO SCH (06:35)
[2019-05-05] MEDS: amLODIPine 5 MG TABLET PO SCH ×2 (06:35→09:38)
[2019-05-05 06:38] LABS: Basophils % 0.7 %; Eosinophils # 0.2 K/mcL (0.0-0.6); Eosinophils % 3.1 %; Hematocrit 35.4 % (37.5-50.1); Hemoglobin 11.3 g/dL (12.9-16.9); Immature Granulocytes % 0.3 % (0-4); Lymphocytes % 16.7 %; Mean Corpuscular HGB Conc 31.9 g/dL (31.6-35.5); Mean Corpuscular Hemoglobin 31.7 pg (28.0-33.3); Mean Corpuscular Volume 99.2 fL (83.0-100.0); Mean Platelet Volume 10.2 fL (9.4-12.4); Monocytes # 0.8 K/mcL (0.0-1.3); Monocytes % 12.8 %; Neutrophils # 4.1 K/mcL (1.6-8.9); Platelet Count 326 K/mcL (140-400); Red Blood Count 3.57 M/mcL (4.19-5.50); Red Cell Distribution Width 12.7 % (11.5-14.5); Segmented Neutrophils % 66.4 %; White Blood Count 6.2 K/mcL (4.3-11.1)
[2019-05-05 06:45] LABS: INR 1.1; Prothrombin Time 12.3 Seconds (9.4-12.1)
[2019-05-05 06:59] LABS: BUN/Creatinine Ratio 23 (6-26); Blood Urea Nitrogen 13 mg/dL (8-23); Calcium 9.7 mg/dL (8.6-10.3); Carbon Dioxide 40 mEq/L (23-29); Chloride 97 mEq/L (98-107); Glucose 106 mg/dL (70-105); Osmolality,Calculated 291 (280-300); Potassium 3.1 mEq/L (3.5-5.1); Sodium 140 mEq/L (136-145); eGFR For African Americans > 60 (> 60); eGFR For Non-African Americans > 60 (> 60)
[2019-05-05] MEDS ORDERED: Potassium Chloride 40 MEQ, Lidocaine 1% 2 ML in 0.9 % Sodium Chloride 500 ML IVPB ONE ×2 (07:21→15:30)
[2019-05-05] MEDS: Budesonide/Formoterol 160/4.5 1 PUFF INH IH SCH ×2 (07:42→19:57)
[2019-05-05] MEDS: Nystatin SUSP 5 ML UD.LIQ PO SCH ×4 (09:38→20:02)
[2019-05-05] MEDS: Sennosides 8.6 MG TABLET PO SCH (09:38)
[2019-05-05] MEDS: Aspirin Enteric Coated 81 MG Tablet PO SCH (09:38)
[2019-05-05] MEDS: Multivit/Ca/Min/Fe/FA 1 TAB TABLET PO SCH (09:38)
[2019-05-05] MEDS: Ascorbic Acid 500 MG TABLET PO SCH (09:38)
[2019-05-05] MEDS: Bisacodyl 10 MG RECTAL SUPPOSITORY RC SCH (09:38)
[2019-05-05] MEDS: Lactobacillus 1 EACH CAP.SPRINK PO SCH (09:38)
[2019-05-05] MEDS: Furosemide 40 MG/4 ML VIAL IVP SCH (09:51)
[2019-05-05] MEDS: levETIRAcetam 1,000 MG in 0.9 % Sodium Chloride 100 ML IVPB SCH ×2 (09:51→20:02)
[2019-05-06] MEDS: MetroNIDAZOLE 500 MG/100 ML 500 MG/100 ML BAG IVPB SCH ×3 (01:12→17:39)
[2019-05-06] MEDS: *HR* Heparin 5,000 UNIT/ML VIAL SQ SCH ×2 (05:14→17:19)
[2019-05-06] MEDS: cefTRIAXone 2,000 MG in Water for inj. (sterile) 20 ML IVP SCH (05:15)
[2019-05-06 05:37] LABS: Basophils # 0.1 K/mcL (0.0-0.2); Eosinophils # 0.3 K/mcL (0.0-0.6); Eosinophils % 4.7 %; Hemoglobin 10.6 g/dL (12.9-16.9); Immature Granulocytes % 0.4 % (0-4); Lymphocytes # 1.3 K/mcL (0.6-4.6); Lymphocytes % 18.7 %; Mean Corpuscular HGB Conc 31.2 g/dL (31.6-35.5); Mean Corpuscular Hemoglobin 30.8 pg (28.0-33.3); Mean Corpuscular Volume 98.8 fL (83.0-100.0); Mean Platelet Volume 9.3 fL (9.4-12.4); Monocytes # 0.8 K/mcL (0.0-1.3); Monocytes % 11.9 %; Neutrophils # 4.5 K/mcL (1.6-8.9); Platelet Count 357 K/mcL (140-400); Red Blood Count 3.44 M/mcL (4.19-5.50); Red Cell Distribution Width 13.2 % (11.5-14.5); Segmented Neutrophils % 63.3 %; White Blood Count 7.1 K/mcL (4.3-11.1)
[2019-05-06 06:00] LABS: BUN/Creatinine Ratio 23 (6-26); Blood Urea Nitrogen 14 mg/dL (8-23); Calcium 9.3 mg/dL (8.6-10.3); Carbon Dioxide 36 mEq/L (23-29); Chloride 102 mEq/L (98-107); Glucose 101 mg/dL (70-105); Magnesium 2.2 mg/dL (1.6-2.6); Osmolality,Calculated 303 (280-300); Potassium 3.5 mEq/L (3.5-5.1); Sodium 146 mEq/L (136-145); eGFR For African Americans > 60 (> 60); eGFR For Non-African Americans > 60 (> 60)
[2019-05-06] MEDS: Aspirin Enteric Coated 81 MG Tablet PO SCH (08:15)
[2019-05-06] MEDS: amLODIPine 5 MG TABLET PO SCH (08:16)
[2019-05-06] MEDS: Nystatin SUSP 5 ML UD.LIQ PO SCH ×4 (08:16→19:54)
[2019-05-06] MEDS: Gabapentin 300 MG CAPSULE PO SCH ×2 (08:16→19:54)
[2019-05-06] MEDS: Lactobacillus 1 EACH CAP.SPRINK PO SCH (08:16)
[2019-05-06] MEDS: Sennosides 8.6 MG TABLET PO SCH (08:17)
[2019-05-06] MEDS: Ascorbic Acid 500 MG TABLET PO SCH (08:17)
[2019-05-06] MEDS: Multivit/Ca/Min/Fe/FA 1 TAB TABLET PO SCH (08:17)
[2019-05-06] MEDS: levETIRAcetam 1,000 MG in 0.9 % Sodium Chloride 100 ML IVPB SCH ×2 (08:28→22:04)
[2019-05-06] MEDS: Furosemide 40 MG/4 ML VIAL IVP SCH (08:29)
[2019-05-06 08:33] LABS: Amylase 25 Units/L (29-103); Lipase 49 Units/L (11-82)
[2019-05-06] MEDS: Budesonide/Formoterol 160/4.5 1 PUFF INH IH SCH ×2 (10:59→19:35)
[2019-05-06] MEDS: Bisacodyl 10 MG RECTAL SUPPOSITORY RC SCH (11:53)
[2019-05-06] MEDS: Ibuprofen 400 MG TABLET PO PRN (17:39)
[2019-05-07] MEDS: MetroNIDAZOLE 500 MG/100 ML 500 MG/100 ML BAG IVPB SCH ×2 (01:23→11:41)
[2019-05-07 02:47] LABS: Hematocrit 32.1 % (37.5-50.1); Hemoglobin 9.9 g/dL (12.9-16.9); Mean Corpuscular HGB Conc 30.8 g/dL (31.6-35.5); Mean Corpuscular Hemoglobin 31.5 pg (28.0-33.3); Mean Corpuscular Volume 102.2 fL (83.0-100.0); Mean Platelet Volume 9.4 fL (9.4-12.4); Platelet Count 329 K/mcL (140-400); Red Blood Count 3.14 M/mcL (4.19-5.50); Red Cell Distribution Width 13.4 % (11.5-14.5); White Blood Count 6.9 K/mcL (4.3-11.1)
[2019-05-07 03:00] LABS: BUN/Creatinine Ratio 25 (6-26); Blood Urea Nitrogen 15 mg/dL (8-23); Carbon Dioxide 38 mEq/L (23-29); Chloride 103 mEq/L (98-107); Glucose 93 mg/dL (70-105); Osmolality,Calculated 305 (280-300); Potassium 3.5 mEq/L (3.5-5.1); Sodium 147 mEq/L (136-145); eGFR For African Americans > 60 (> 60); eGFR For Non-African Americans > 60 (> 60)
[2019-05-07] MEDS: *HR* Heparin 5,000 UNIT/ML VIAL SQ SCH ×2 (06:32→17:03)
[2019-05-07] MEDS: cefTRIAXone 2,000 MG in Water for inj. (sterile) 20 ML IVP SCH (06:32)
[2019-05-07 08:27] LABS: Red Blood Cell,CSF < 0.002 M/mcL
[2019-05-07] MEDS: Multivit/Ca/Min/Fe/FA 1 TAB TABLET PO SCH (08:27)
[2019-05-07] MEDS: Gabapentin 300 MG CAPSULE PO SCH ×2 (08:27→21:47)
[2019-05-07] MEDS: Aspirin Enteric Coated 81 MG Tablet PO SCH (08:27)
[2019-05-07] MEDS: Sennosides 8.6 MG TABLET PO SCH (08:27)
[2019-05-07 08:28] LABS: Appearance,CSF Clear (Clear)
[2019-05-07] MEDS: Lactobacillus 1 EACH CAP.SPRINK PO SCH (08:28)
[2019-05-07] MEDS: Furosemide 40 MG/4 ML VIAL IVP SCH (08:28)
[2019-05-07] MEDS: Ascorbic Acid 500 MG TABLET PO SCH (08:28)
[2019-05-07] MEDS: Nystatin SUSP 5 ML UD.LIQ PO SCH ×4 (08:28→21:35)
[2019-05-07] MEDS: amLODIPine 5 MG TABLET PO SCH (08:28)
[2019-05-07] MEDS: Bisacodyl 10 MG RECTAL SUPPOSITORY RC SCH (08:29)
[2019-05-07] MEDS: levETIRAcetam 1,000 MG in 0.9 % Sodium Chloride 100 ML IVPB SCH (08:43)
[2019-05-07] MEDS: Nystatin POWDER 30 GM BOTTLE TP SCH ×2 (08:43→21:51)
[2019-05-07 09:18] LABS: Glucose,CSF 70 mg/dL (40-70); Total Protein,CSF 178 mg/dL (15-45)
[2019-05-07] MEDS: Budesonide/Formoterol 160/4.5 1 PUFF INH IH SCH ×2 (10:41→22:36)
[2019-05-07] MEDS: levETIRAcetam 250 MG TABLET PO SCH (17:03)
[2019-05-07] MEDS: metroNIDAZOLE 500 MG TABLET PO SCH (21:47)
[2019-05-08] MEDS: *HR* Heparin 5,000 UNIT/ML VIAL SQ SCH (05:42)
[2019-05-08] MEDS: cefTRIAXone 2,000 MG in Water for inj. (sterile) 20 ML IVP SCH (05:42)
[2019-05-08] MEDS: levETIRAcetam 250 MG TABLET PO SCH (05:44)
[2019-05-08] MEDS: metroNIDAZOLE 500 MG TABLET PO SCH (06:23)
[2019-05-08 06:47] VITALS: BP 146/85
[2019-05-08] MEDS: Budesonide/Formoterol 160/4.5 1 PUFF INH IH SCH (07:36)
[2019-05-08] MEDS: Furosemide 40 MG/4 ML VIAL IVP SCH (10:37)
[2019-05-08] MEDS: Gabapentin 300 MG CAPSULE PO SCH (10:38)
[2019-05-08] MEDS: amLODIPine 5 MG TABLET PO SCH (10:38)
[2019-05-08] MEDS: Multivit/Ca/Min/Fe/FA 1 TAB TABLET PO SCH (10:38)
[2019-05-08] MEDS: Aspirin Enteric Coated 81 MG Tablet PO SCH (10:38)
[2019-05-08] MEDS: Sennosides 8.6 MG TABLET PO SCH (10:39)
[2019-05-08] MEDS: Lactobacillus 1 EACH CAP.SPRINK PO SCH (10:39)
[2019-05-08] MEDS: Nystatin SUSP 5 ML UD.LIQ PO SCH (10:39)
[2019-05-08] MEDS: Bisacodyl 10 MG RECTAL SUPPOSITORY RC SCH (10:39)
[2019-05-08] MEDS: Nystatin POWDER 30 GM BOTTLE TP SCH (10:48)
[2019-05-08 11:12] LABS: Basophils # 0.1 K/mcL (0.0-0.2); Basophils % 0.9 %; Eosinophils # 0.4 K/mcL (0.0-0.6); Eosinophils % 5.2 %; Hematocrit 35.8 % (37.5-50.1); Hemoglobin 10.9 g/dL (12.9-16.9); Immature Granulocytes % 0.8 % (0-4); Lymphocytes # 1.3 K/mcL (0.6-4.6); Lymphocytes % 16.5 %; Mean Corpuscular HGB Conc 30.4 g/dL (31.6-35.5); Mean Corpuscular Hemoglobin 31.2 pg (28.0-33.3); Mean Corpuscular Volume 102.6 fL (83.0-100.0); Mean Platelet Volume 9.9 fL (9.4-12.4); Monocytes # 0.8 K/mcL (0.0-1.3); Monocytes % 10.4 %; Neutrophils # 5.2 K/mcL (1.6-8.9); Platelet Count 438 K/mcL (140-400); Red Blood Count 3.49 M/mcL (4.19-5.50); Red Cell Distribution Width 13.6 % (11.5-14.5); Segmented Neutrophils % 66.2 %; White Blood Count 7.8 K/mcL (4.3-11.1)
[2019-05-08 11:30] LABS: BUN/Creatinine Ratio 21 (6-26); Blood Urea Nitrogen 14 mg/dL (8-23); Calcium 9.6 mg/dL (8.6-10.3); Carbon Dioxide 38 mEq/L (23-29); Chloride 105 mEq/L (98-107); Glucose 144 mg/dL (70-105); Osmolality,Calculated 305 (280-300); Potassium 3.5 mEq/L (3.5-5.1); Sodium 146 mEq/L (136-145); eGFR For African Americans > 60 (> 60); eGFR For Non-African Americans > 60 (> 60)
[2019-05-09 11:31] LABS: HSV Source CSF
== END 2019-05-08 14:50 | DRG 871 ==
LOC: EMEROOARM 23:20 → 2NENU 23:20 → SUATTDRO 05-01 02:13 → 2NENU 05-01 02:48
PROVIDERS: ADMIT Internal Medicine; ATTEND Internal Medicine
PROC: IRLUMPX (2019-05-06 14:00)

== ENCOUNTER 2020-06-28 09:08 | Inpatient (IN) ==
[2020-06-28] MEDS ORDERED: levoFLOXacin 750 MG/150 ML 750 MG/150 ML BAG IVPB ONE (09:23)
[2020-06-28] MEDS ORDERED: 0.9 % Sodium Chloride 1,000 ML IVC ONE ×3 (09:25→11:18)
[2020-06-28 10:12] LABS: VBG HCO3 35 mEq/L (21-27); VBG PCO2 65 mmHg (41-51); VBG PH 7.33 pH Units (7.32-7.42); VBG PO2 48 mmHg (25-50)
[2020-06-28 10:12] LABS: Basophils # 0.1 K/mcL (0.0-0.2); Basophils % 0.6 %; Eosinophils # 0.2 K/mcL (0.0-0.6); Eosinophils % 1.6 %; Hematocrit 45.1 % (37.5-50.1); Hemoglobin 13.8 g/dL (12.9-16.9); Immature Granulocytes % 0.4 % (0-4); Lymphocytes # 0.3 K/mcL (0.6-4.6); Lymphocytes % 2.6 %; Mean Corpuscular HGB Conc 30.6 g/dL (31.6-35.5); Mean Corpuscular Hemoglobin 30.3 pg (28.0-33.3); Mean Corpuscular Volume 99.1 fL (83.0-100.0); Mean Platelet Volume 9.7 fL (9.4-12.4); Monocytes # 0.9 K/mcL (0.0-1.3); Neutrophils # 10.1 K/mcL (1.6-8.9); Platelet Count 371 K/mcL (140-400); Red Blood Count 4.55 M/mcL (4.19-5.50); Red Cell Distribution Width 15.4 % (11.5-14.5); Segmented Neutrophils % 86.8 %; White Blood Count 11.6 K/mcL (4.3-11.1)
[2020-06-28 10:19] LABS: Bacteria,Urine Few per hpf (None-Few); Bilirubin,Urine Negative (Negative); Blood,Urine Negative (Negative); Clarity,Urine Turbid (Clear); Color,Urine Yellow (Yellow); Glucose,Urine (UA) Normal (Normal); Ketones,Urine Negative (Negative); Leukocyte Esterase,Urine Large (Negative); Mucus,Urine Few per lpf (None-Few); Nitrite,Urine Negative (Negative); PH,Urine 6.5 pH Units (5.0-8.0); Protein,Urine 50 mg/dL (Neg-Trace); Renal Epithelial Cells,Urine Few per hpf (None-Few); Specific Gravity,Urine 1.017 (1.010-1.025); Squamous Epithelial Cell,Urine Few per hpf (None-Few); WBC,Urine TNTC per hpf (0-3)
[2020-06-28 10:28] LABS: Alanine Aminotransferase 16 Units/L (7-52); Albumin 4.1 g/dL (3.5-5.7); Albumin/Globulin Ratio 1.1 (1.1-2.2); Alkaline Phosphatase 73 Units/L (34-104); Aspartate Amino Transferase 17 Units/L (13-39); BUN/Creatinine Ratio 20 (6-26); Bilirubin,Direct 0.1 mg/dL (0.0-0.2); Bilirubin,Indirect 0.4 mg/dL (0.0-1.0); Bilirubin,Total 0.5 mg/dL (0.3-1.0); Blood Urea Nitrogen 18 mg/dL (8-23); Calcium 9.7 mg/dL (8.6-10.3); Carbon Dioxide 33 mEq/L (23-29); Chloride 101 mEq/L (98-107); Globulin 3.6 g/dL (2.4-3.5); Glucose 140 mg/dL (70-105); Lipase 30 Units/L (11-82); Magnesium 2.2 mg/dL (1.6-2.6); Osmolality,Calculated 302 (280-300); Potassium 4.3 mEq/L (3.5-5.1); Sodium 144 mEq/L (136-145); Total Protein 7.7 g/dL (6.4-8.9); Troponin I < 0.03 ng/mL (< 0.04); eGFR For African Americans > 60 (> 60); eGFR For Non-African Americans > 60 (> 60)
[2020-06-28 10:51] LABS: Adenovirus Not Detected (Not Detect); Bordetella Pertussis Not Detected (Not Detect); Chlamydophila pneumoniae Not Detected (Not Detect); Coronavirus 229E Not Detected (Not Detect); Coronavirus HKU1 Not Detected (Not Detect); Coronavirus NL63 Not Detected (Not Detect); Coronavirus OC43 Not Detected (Not Detect); Human Metapneumovirus Not Detected (Not Detect); Human Rhinovirus/Enterovirus Not Detected (Not Detect); Influenza A Subtype 2009 H1 Not Detected (Not Detect); Influenza B Not Detected (Not Detect); Mycoplasma pneumoniae Not Detected (Not Detect); Parainfluenza Virus 1 Not Detected (Not Detect); Parainfluenza Virus 2 Not Detected (Not Detect); Parainfluenza Virus 3 Not Detected (Not Detect); Parainfluenza Virus 4 Not Detected (Not Detect); Respiratory Syncytial Virus Not Detected (Not Detect); SARS-CoV-2 Not Detected (Not Detect)
[2020-06-28] MEDS ORDERED: Vancomycin 1,500 MG/265 ML IV.SOLN IVPB ONE (10:58)
[2020-06-28] MEDS ORDERED: Dextrose Gel 15 GM/37.5 ML TUBE PO PRN ×2 (11:48)
[2020-06-28] MEDS ORDERED: Naloxone 0.4 MG/ML INJ IVP PRN (11:48)
[2020-06-28] MEDS ORDERED: D5% in Water 1,000 ML IVC PRN (11:48)
[2020-06-28] MEDS ORDERED: *HR* Dextrose 50 % in Water (Vial) 50 ML VIAL IVP PRN (11:48)
[2020-06-28] MEDS: Insulin LISPRO 300 UNITS/3 ML VIAL SQ SCH ×2 (17:30→21:35)
[2020-06-28] MEDS: Cefepime HCl 2,000 MG in Water for inj. (sterile) 20 ML IVP SCH (18:06)
[2020-06-28] MEDS: MetroNIDAZOLE 500 MG/100 ML 500 MG/100 ML BAG IVPB SCH (18:07)
[2020-06-28] MEDS: Vancomycin 1,500 MG/265 ML IV.SOLN IVPB SCH (23:04)
[2020-06-29] MEDS: levETIRAcetam 250 MG TABLET PO SCH ×4 (00:58→23:14)
[2020-06-29] MEDS: MetroNIDAZOLE 500 MG/100 ML 500 MG/100 ML BAG IVPB SCH ×4 (00:59→23:58)
[2020-06-29] MEDS: Cefepime HCl 2,000 MG in Water for inj. (sterile) 20 ML IVP SCH ×4 (00:59→23:58)
[2020-06-29] MEDS: carvediloL 25 MG TABLET PO SCH ×2 (01:01→16:26)
[2020-06-29 02:13] LABS: Basophils % 0.3 %; Eosinophils % 0.1 %; Hematocrit 37.1 % (37.5-50.1); Immature Granulocytes % 0.4 % (0-4); Lymphocytes # 0.4 K/mcL (0.6-4.6); Lymphocytes % 5.1 %; Mean Corpuscular HGB Conc 30.5 g/dL (31.6-35.5); Mean Corpuscular Hemoglobin 30.8 pg (28.0-33.3); Mean Corpuscular Volume 101.1 fL (83.0-100.0); Mean Platelet Volume 9.6 fL (9.4-12.4); Monocytes # 1.3 K/mcL (0.0-1.3); Monocytes % 17.2 %; Neutrophils # 5.9 K/mcL (1.6-8.9); Platelet Count 268 K/mcL (140-400); Red Blood Count 3.67 M/mcL (4.19-5.50); Red Cell Distribution Width 15.6 % (11.5-14.5); Segmented Neutrophils % 76.9 %; White Blood Count 7.7 K/mcL (4.3-11.1)
[2020-06-29 02:16] LABS: Hemoglobin 11.3 g/dL (12.9-16.9)
[2020-06-29 02:32] LABS: BUN/Creatinine Ratio 19 (6-26); Blood Urea Nitrogen 14 mg/dL (8-23); Carbon Dioxide 27 mEq/L (23-29); Chloride 107 mEq/L (98-107); Glucose 138 mg/dL (70-105); Osmolality,Calculated 297 (280-300); Sodium 142 mEq/L (136-145); eGFR For African Americans > 60 (> 60); eGFR For Non-African Americans > 60 (> 60)
[2020-06-29] MEDS: *HR* Enoxaparin 40 MG/0.4 ML SYRINGE SQ SCH (08:06)
[2020-06-29] MEDS: Aspirin Enteric Coated 81 MG Tablet PO SCH (08:06)
[2020-06-29] MEDS: Insulin LISPRO 300 UNITS/3 ML VIAL SQ SCH ×4 (09:06→20:08)
[2020-06-29] MEDS: Vancomycin 1,500 MG/265 ML IV.SOLN IVPB SCH (12:55)
[2020-06-29] MEDS ORDERED: Acetaminophen IV 1,000 MG/100 ML INFUS..BTL IVPB ONE (16:28)
[2020-06-29] MEDS ORDERED: 0.9 % Sodium Chloride 500 ML IVC ONE (16:58)
[2020-06-29 19:27] LABS: Adenovirus Not Detected (Not Detect); Bordetella Pertussis Not Detected (Not Detect); Chlamydophila pneumoniae Not Detected (Not Detect); Coronavirus 229E Not Detected (Not Detect); Coronavirus HKU1 Not Detected (Not Detect); Coronavirus NL63 Not Detected (Not Detect); Coronavirus OC43 Not Detected (Not Detect); Human Metapneumovirus Not Detected (Not Detect); Human Rhinovirus/Enterovirus Not Detected (Not Detect); Influenza A Subtype 2009 H1 Not Detected (Not Detect); Influenza B Not Detected (Not Detect); Mycoplasma pneumoniae Not Detected (Not Detect); Parainfluenza Virus 1 Not Detected (Not Detect); Parainfluenza Virus 2 Not Detected (Not Detect); Parainfluenza Virus 3 Not Detected (Not Detect); Parainfluenza Virus 4 Not Detected (Not Detect); Respiratory Syncytial Virus Not Detected (Not Detect)
[2020-06-29 19:28] LABS: SARS-CoV-2 DETECTED (Not Detect)
[2020-06-29] MEDS: levETIRAcetam 1,000 MG in 0.9 % Sodium Chloride 100 ML IVPB SCH (23:57)
[2020-06-30] MEDS ORDERED: Acetaminophen IV 500 MG/50 ML INFUS..BTL IVPB ONE (01:25)
[2020-06-30] MEDS: Vancomycin 1,500 MG/265 ML IV.SOLN IVPB SCH ×2 (04:55→05:41)
[2020-06-30 05:23] LABS: Hematocrit 38.4 % (37.5-50.1); Hemoglobin 11.4 g/dL (12.9-16.9); Mean Corpuscular HGB Conc 29.7 g/dL (31.6-35.5); Mean Corpuscular Hemoglobin 30.5 pg (28.0-33.3); Mean Corpuscular Volume 102.7 fL (83.0-100.0); Mean Platelet Volume 9.7 fL (9.4-12.4); Platelet Count 230 K/mcL (140-400); Red Blood Count 3.74 M/mcL (4.19-5.50); Red Cell Distribution Width 15.9 % (11.5-14.5); White Blood Count 4.2 K/mcL (4.3-11.1)
[2020-06-30 05:26] LABS: INR 1.2; Prothrombin Time 13.5 Seconds (9.4-12.1)
[2020-06-30 05:36] LABS: BUN/Creatinine Ratio 19 (6-26); Blood Urea Nitrogen 14 mg/dL (8-23); C-Reactive Protein 172 mg/L (Less than 10); Carbon Dioxide 29 mEq/L (23-29); Chloride 109 mEq/L (98-107); Glucose 114 mg/dL (70-105); Magnesium 2.2 mg/dL (1.6-2.6); Osmolality,Calculated 297 (280-300); Potassium 4.1 mEq/L (3.5-5.1); Sodium 143 mEq/L (136-145); eGFR For African Americans > 60 (> 60); eGFR For Non-African Americans > 60 (> 60)
[2020-06-30] MEDS: *HR* Enoxaparin 40 MG/0.4 ML SYRINGE SQ SCH (07:43)
[2020-06-30] MEDS: Cefepime HCl 2,000 MG in Water for inj. (sterile) 20 ML IVP SCH (07:44)
[2020-06-30] MEDS: carvediloL 25 MG TABLET PO SCH ×2 (07:45→15:54)
[2020-06-30] MEDS: Insulin LISPRO 300 UNITS/3 ML VIAL SQ SCH ×4 (07:45→19:47)
[2020-06-30] MEDS: MetroNIDAZOLE 500 MG/100 ML 500 MG/100 ML BAG IVPB SCH (07:45)
[2020-06-30] MEDS: Aspirin Enteric Coated 81 MG Tablet PO SCH (07:45)
[2020-06-30] MEDS: levETIRAcetam 1,000 MG in 0.9 % Sodium Chloride 100 ML IVPB SCH ×2 (08:15→20:00)
[2020-06-30] MEDS: Dexamethasone 4 MG/ML VIAL IVP SCH (09:08)
[2020-06-30] MEDS: cefTRIAXone 1,000 MG in Water for inj. (sterile) 10 ML IVP SCH (09:09)
[2020-06-30] MEDS: Acetaminophen IV 1,000 MG/100 ML INFUS..BTL IVPB SCH ×2 (12:02→17:37)
[2020-07-01] MEDS: Acetaminophen IV 1,000 MG/100 ML INFUS..BTL IVPB SCH ×2 (00:09→05:40)
[2020-07-01] MEDS: *HR* Enoxaparin 40 MG/0.4 ML SYRINGE SQ SCH (06:00)
[2020-07-01] MEDS: cefTRIAXone 1,000 MG in Water for inj. (sterile) 10 ML IVP SCH (07:38)
[2020-07-01] MEDS: Dexamethasone 4 MG/ML VIAL IVP SCH (07:38)
[2020-07-01] MEDS: Aspirin Enteric Coated 81 MG Tablet PO SCH (07:39)
[2020-07-01] MEDS: levETIRAcetam 1,000 MG in 0.9 % Sodium Chloride 100 ML IVPB SCH ×2 (07:39→20:10)
[2020-07-01] MEDS: carvediloL 25 MG TABLET PO SCH ×2 (07:40→15:49)
[2020-07-01] MEDS: Insulin LISPRO 300 UNITS/3 ML VIAL SQ SCH ×4 (08:24→20:02)
[2020-07-01 12:04] LABS: Alanine Aminotransferase 27 Units/L (7-52); Albumin 3.1 g/dL (3.5-5.7); Albumin/Globulin Ratio 1.1 (1.1-2.2); Alkaline Phosphatase 43 Units/L (34-104); Aspartate Amino Transferase 36 Units/L (13-39); BUN/Creatinine Ratio 32 (6-26); Bilirubin,Indirect 0.2 mg/dL (0.0-1.0); Bilirubin,Total 0.2 mg/dL (0.3-1.0); Blood Urea Nitrogen 22 mg/dL (8-23); Calcium 8.5 mg/dL (8.6-10.3); Carbon Dioxide 30 mEq/L (23-29); Chloride 110 mEq/L (98-107); Globulin 2.8 g/dL (2.4-3.5); Glucose 133 mg/dL (70-105); Osmolality,Calculated 305 (280-300); Potassium 4.5 mEq/L (3.5-5.1); Sodium 145 mEq/L (136-145); Total Protein 5.9 g/dL (6.4-8.9); eGFR For African Americans > 60 (> 60); eGFR For Non-African Americans > 60 (> 60)
[2020-07-02] MEDS: *HR* Enoxaparin 40 MG/0.4 ML SYRINGE SQ SCH (06:05)
[2020-07-02] MEDS: cefTRIAXone 1,000 MG in Water for inj. (sterile) 10 ML IVP SCH (07:45)
[2020-07-02] MEDS: carvediloL 25 MG TABLET PO SCH ×2 (07:46→17:00)
[2020-07-02] MEDS: Dexamethasone 4 MG/ML VIAL IVP SCH (07:46)
[2020-07-02] MEDS: Aspirin Enteric Coated 81 MG Tablet PO SCH (07:47)
[2020-07-02] MEDS: Insulin LISPRO 300 UNITS/3 ML VIAL SQ SCH ×4 (07:47→21:18)
[2020-07-02] MEDS: levETIRAcetam 1,000 MG in 0.9 % Sodium Chloride 100 ML IVPB SCH ×2 (09:19→20:49)
[2020-07-02] MEDS: Spironolactone 25 MG TABLET PO SCH (12:16)
[2020-07-02] MEDS: Furosemide 40 MG TABLET PO SCH ×2 (12:16→20:49)
[2020-07-03] MEDS: *HR* Enoxaparin 40 MG/0.4 ML SYRINGE SQ SCH (06:11)
[2020-07-03] MEDS: Insulin LISPRO 300 UNITS/3 ML VIAL SQ SCH ×4 (07:20→20:54)
[2020-07-03] MEDS: Dexamethasone 4 MG/ML VIAL IVP SCH (08:11)
[2020-07-03] MEDS: carvediloL 25 MG TABLET PO SCH ×2 (08:12→16:29)
[2020-07-03] MEDS: Spironolactone 25 MG TABLET PO SCH (08:12)
[2020-07-03] MEDS: Furosemide 40 MG TABLET PO SCH ×2 (08:12→20:54)
[2020-07-03] MEDS: Aspirin Enteric Coated 81 MG Tablet PO SCH (08:12)
[2020-07-03] MEDS: levETIRAcetam 1,000 MG in 0.9 % Sodium Chloride 100 ML IVPB SCH ×2 (08:13→20:54)
[2020-07-03] MEDS ORDERED: *HR* Labetalol 20 MG/4 ML SYRINGE IVP PRN (20:34)
[2020-07-04] MEDS: *HR* Enoxaparin 40 MG/0.4 ML SYRINGE SQ SCH (05:55)
[2020-07-04] MEDS: Furosemide 40 MG TABLET PO SCH (08:45)
[2020-07-04] MEDS: carvediloL 25 MG TABLET PO SCH (08:45)
[2020-07-04] MEDS: Aspirin Enteric Coated 81 MG Tablet PO SCH (08:45)
[2020-07-04] MEDS: Spironolactone 25 MG TABLET PO SCH (08:45)
[2020-07-04] MEDS: Dexamethasone 4 MG/ML VIAL IVP SCH (08:46)
[2020-07-04] MEDS: Insulin LISPRO 300 UNITS/3 ML VIAL SQ SCH ×2 (08:53→10:56)
[2020-07-04] MEDS: levETIRAcetam 1,000 MG in 0.9 % Sodium Chloride 100 ML IVPB SCH (10:29)
[2020-07-04 10:57] VITALS: BP 148/80
[2020-07-04 10:58] LABS: Mean Corpuscular HGB Conc 31.6 g/dL (31.6-35.5); Mean Corpuscular Hemoglobin 30.2 pg (28.0-33.3); Mean Corpuscular Volume 95.7 fL (83.0-100.0); Mean Platelet Volume 9.9 fL (9.4-12.4); Platelet Count 235 K/mcL (140-400); Red Blood Count 3.97 M/mcL (4.19-5.50); Red Cell Distribution Width 14.6 % (11.5-14.5); White Blood Count 9.1 K/mcL (4.3-11.1)
[2020-07-04 11:18] LABS: BUN/Creatinine Ratio 30 (6-26); Blood Urea Nitrogen 16 mg/dL (8-23); Calcium 8.9 mg/dL (8.6-10.3); Carbon Dioxide 35 mEq/L (23-29); Chloride 101 mEq/L (98-107); Glucose 146 mg/dL (70-105); Magnesium 1.9 mg/dL (1.6-2.6); Osmolality,Calculated 304 (280-300); Phosphorous 2.8 mg/dL (2.7-4.5); Potassium 3.7 mEq/L (3.5-5.1); Sodium 145 mEq/L (136-145); eGFR For African Americans > 60 (> 60); eGFR For Non-African Americans > 60 (> 60)
== END 2020-07-04 16:13 | disposition short-term general hospital (02) | DRG 871 ==
LOC: EMEROOARM 09:08 → 2NENU 15:07 → SUATTDRO 15:07 → 2NENU 16:40
PROVIDERS: ADMIT Student in an Organized Health Care Education/Training Program; ATTEND Internal Medicine